=== PATIENT | female | born 1950 | race Caucasian/White ===

== ENCOUNTER 2020-02-21 08:20 | Outpatient (CLI) | payer MEDICARE, SELFPAY ==
--- NOTE | 2020-02-21 08:40 | CT_ITS ---
WS: [id number] CT CHEST WITHOUT INTRAVENOUS CONTRAST HISTORY: PULMONARY NODULE TECHNIQUE: Contiguous 5 mm axial imaging performed on the thorax. Coronal and sagittal reformats are submitted. All CT scans at [facility] use at least one of these dose optimization techniq ues: automated exposure control; mA and/or kV adjustment per patient size (includes targeted exams wh ere dose is matched to clinical indication); or iterative reconstruction. CONTRAST: None DLP: 593.39 mGycm COMPARISON: 04/21/2018, 03/02/2016 Lungs and central airway: Severe chronic emphysema. Lungs are hyperexpanded. There are fibrotic donaldson es throughout both lungs. Stable noncalcified 3 mm nodule periphery of the RIGHT lower lobe. No new n odule or pneumonia. Mild progression of the groundglass attenuation and fibrotic changes. Pleura: Normal. No pleural effusion. Heart and pericardium: Normal size heart. No pericardial effusion. Mediastinum and junior: There are small stable lymph nodes in the mediastinal and hilar regions. No pro gression since the prior exam. Vessels: Mildly dilated and enlarged pulmonary trunk up to 2.9 cm. Mild atherosclerosis aorta with no aneurysm. No coronary artery calcifications. Chest wall and lower neck: No soft tissue masses. Upper abdomen: Unenhanced imaging is negative for any acute process. Visualized liver, gallbladder an d adrenal glands are negative. Small hiatal hernia. Osseous structures: Increase in thoracic kyphosis. Mild S-shaped curvature thoracolumbar spine. No fr actures. CT/CT chest wo con [id number] IMPRESSION: 1. Severe chronic emphysema and pulmonary fibrosis. Minimal progression since 04/21/2018. 2. Long-term stability RIGHT lower lobe 3 mm nodule. 3. Mild pulmonary hypertension. 4. Mild atherosclerosis aorta. 5. Small hiatal hernia.
== END 2020-02-21 08:21 | disposition home or self-care (01) ==
LOC: RADWPI 08:27
PROVIDERS: Family Provider Family Medicine; PCP Family Medicine; Visit Provider Family Medicine
DX: R91.1 Solitary pulmonary nodule (principal); J43.8 Other emphysema; J84.10 Pulmonary fibrosis, unspecified; I27.20 Pulmonary hypertension, unspecified; I70.0 Atherosclerosis of aorta; K44.9 Diaphragmatic hernia without obstruction or gangrene
CPT/HCPCS: 71250

== ENCOUNTER 2020-03-21 11:01 | Outpatient (CLI) | payer MEDICARE, SELFPAY ==
--- NOTE | 2020-03-21 11:09 | MM_ITS ---
WS: [id number] BILATERAL SCREENING DIGITAL MAMMOGRAM WITH CAD HISTORY: SCREENING COMPARISON: 11/08/2018, 10/12/2017 and 09/02/2016 Bilateral CC and MLO views submitted. Computer aided detection analyzed. Breast composition: There are scattered areas of fibroglandular density. No suspicious masses, microc alcifications or architectural distortion. MM/[place] [id number] IMPRESSION: BI-RADS: 1-Negative FOLLOW UP: 1 Year Follow-up
== END 2020-03-21 11:02 | disposition home or self-care (01) ==
LOC: RADSHAW 11:07
PROVIDERS: PCP Family Medicine; Visit Provider Family Medicine
DX: Z12.31 Encounter for screening mammogram for malignant neoplasm of breast (principal)
CPT/HCPCS: 77067

== ENCOUNTER → 2020-11-27 13:16 | Outpatient (BNVA) | payer MEDICARE, SELFPAY | PROVIDERS: PCP Family Medicine; Visit Provider Family Medicine | DX: R30.0 Dysuria (principal) | CPT/HCPCS: 81000; 87077; 87086; 87184 ==

== ENCOUNTER 2021-03-11 09:57 | Outpatient (CLI) | payer MEDICARE, SELFPAY ==
--- NOTE | 2021-03-11 10:39 | CT_ITS ---
WS: [id number] CT CHEST TECHNIQUE: Noncontrast CT of the chest with coronal and sagittal reformatted images. CLINICAL INFORMATION: PULMONARY NODULE COMPARISON: CT chest February 21, 2020 and DLP: 597.[address] scans at [facility] use at least one of these dose optimization techniques: automat ed exposure control; mA and/or kV adjustment per patient size (includes targeted exams where dose is matched to clinical indication); or iterative reconstruction. FINDINGS: Small 3 mm nodule right lower lobe is unchanged since 2018. Advanced chronic emphysematous changes. S cattered areas of fibrosis in the lung apices. Small esophageal hiatal hernia. Aortic calcification. No mediastinal or hilar lymphadenopathy. Prominent pulmonary trunk measuring up to 3.0 cm can be seen with pulmonary arterial hypertension unchanged. Thoracic kyphosis with mild S-shaped thoracolumbar scoliosis. Adrenal glands are normal. CT/CT chest wo con [id number] IMPRESSION: 1. Long-term stability of the 3 millimeter right lower lobe pulmonary nodule. 2. Advanced chronic emphysematous changes are stable. Fibrosis in the lung api mallory. 3. No mediastinal or hilar lymphadenopathy. A few prominent subcarinal lymph n odes unchanged from previous. 4. Small esophageal hiatal hernia.
== END 2021-03-11 09:58 | disposition home or self-care (01) ==
LOC: RADWPI 10:03
PROVIDERS: PCP Family Medicine; Visit Provider Family Medicine
DX: R91.1 Solitary pulmonary nodule (principal); J84.10 Pulmonary fibrosis, unspecified; K44.9 Diaphragmatic hernia without obstruction or gangrene
CPT/HCPCS: 71250

== ENCOUNTER → 2021-05-08 09:51 | Outpatient (BNVA) | payer MEDICARE, SELFPAY | PROVIDERS: PCP Family Medicine; Visit Provider Family Medicine | DX: Z20.822 Contact with and (suspected) exposure to COVID-19 (principal) | CPT/HCPCS: 87635 ==

== ENCOUNTER 2021-05-14 09:10 | Outpatient (CLI) | payer MEDICARE, SELFPAY ==
--- NOTE | 2021-05-14 09:12 | USCV_ITS ---
Gwendolyn Carrington Age: 70 Gender: F : 1950 Exam Date: 05/14/2021 09:37 Ordering Phys: Julio Carson MD Technologist: Chloe Garcia Exam Location: [facility] [place] Indication: HTN BP: 105 / 61 HR: 69 Rhythm: Sinus Technical Quality: Adequate MEASUREMENTS (Male / Female) Normal Values 2D ECHO LV Diastolic Diameter PLAX 3.8 cm 4.2 - 5.9 / 3.9 - 5.3 cm LV Systolic Diameter PLAX 2.4 cm IVS Diastolic Thickness 1.3 cm 0.6 - 1.0 / 0.6 - 0.9 cm IVS Systolic Thickness 1.3 cm LVPW Diastolic Thickness 0.9 cm 0.6 - 1.0 / 0.6 - 0.9 cm LVPW Systolic Thickness 1.5 cm RV Chamber Size 3.2 cm LVOT Diameter 2.0 cm LV Ejection Fraction 2D Teich 69.0 % LV Ejection Fraction MOD 2C 58.1 % LV Ejection Fraction 2C AL 57.6 % LA Diameter 2.9 cm LA Width 2.2 cm LA Height 3.4 cm RA Width 2.7 cm RA Height 3.5 cm Aorta at Sinotubular Diameter 2.1 cm M-MODE Aortic Annulus Diameter 2.4 cm LA Ao Ratio MM 1.3 MV E Point Septal Separation 0.5 cm DOPPLER AV Peak Velocity 120.0 cm/s LVOT Peak Velocity 114.0 cm/s AV Area Cont Eq vti 2.7 cm squared AV Area Cont Eq pk 2.9 cm squared MV Area PHT 5.0 cm squared Mitral E to A Ratio 0.9 MV E' Velocity 50.5 cm/s Mitral E to MV E' Ratio 6.4 Mitral E to LV E' Lateral Ratio 5.7 Mitral E to LV E' Septal Ratio 7.3 TR Peak Velocity 250.0 cm/s TR Peak Gradient 25.0 mmHg TV Peak E Velocity 64.0 cm/s Right Atrial Pressure 3.0 mmHg Pulmonary Artery Systolic Pressu 28.0 mmHg PV Peak Velocity 136.0 cm/s RV Acceleration Time 0.1 s RV Ejection Time 0.3 s RV AcT/ET 0.3 FINDINGS Left Ventricle Normal left ventricular size and systolic function, EF 65 %. No regional wall motion abnormalities. Right Ventricle The right ventricle is normal in size and function. Right Atrium The right atrium is normal in size. Left Atrium The left atrium is normal in size. Mitral Valve Trace mitral valve regurgitation. Thickened mitral valve. Aortic Valve Structurally normal trileaflet aortic valve. Tricuspid Valve No gross abnormalities noted. Trace to mild tricuspid valve regurgitation. Pulmonic Valve Trace pulmonary valve regurgitation. Pericardium Normal pericardium without effusion. Aorta Normal ascending aorta dimension. CONCLUSIONS Normal left ventricular size and systolic function, EF 65 %. No regional wall motion abnormalities. Minimally thickened aortic and mitral valves. Trace to mild tricuspid valve regurgitation. Trace mitral valve regurgitation. Trace pulmonary valve regurgitation. There is no pericardial effusion. There are no intracardiac masses. Compared to the study from 10/08/2016, there may not be a significant change Dr Fidencio Mosher MD FACC (Electronically Signed) Final Date: 14 May 2021 19:37 S
--- NOTE | 2021-05-14 13:31 | PFTS_ITS ---
Date of Study:05/14/21 Date of Dictation: MECHANICS: Forced vital capacity (FVC) is normal. Forced expiratory volume in one second (FEV1) is normal. FEV1/FVC is normal. FLOW VOLUME LOOP: Mild scooping. LUNG VOLUMES: Not measured DIFFUSING CAPACITY FOR CARBON MONOXIDE: Not measured. INTERPRETATION: The postbronchodilator spirometry is normal. There is no significant postbronchodilator response. MTDD
== END 2021-05-14 09:11 | disposition home or self-care (01) ==
LOC: US 09:11
PROVIDERS: PCP Family Medicine; Visit Provider Family Medicine
DX: I10 Essential (primary) hypertension (principal); J43.9 Emphysema, unspecified
CPT/HCPCS: 93306; 94060; J7611

== ENCOUNTER 2021-05-28 09:40 | Outpatient (CLI) | payer MEDICARE, SELFPAY ==
--- NOTE | 2021-05-28 09:45 | FL_ITS ---
WS: [id number] DOUBLE CONTRAST UPPER GI EXAMINATION HISTORY: K21.9 - Gastro-esophageal reflux disease without esophagitis COMPARISON: 03/03/2016 FLUOROSCOPY TIME: 3.6 minutes. Slow transit of barium through the esophagus secondary to moderate stricture and dysmotility at the G E junction. There is a moderate narrowing of the distal esophagus. There is also a component of esoph ageal spasm. Proximal to the stricture is a moderate esophageal dysmotility. No filling defects. Duodenal bulb was distensible and pliable. No ulcerations noted within the stomach. Delayed emptying of the esophagus. No hiatal hernia was demonstrated on this exam. FL/FL upper GI w air* [id number] IMPRESSION: 1. Significant delay in emptying of the esophagus due to moderate distal esoph ageal stricture and dysmotility. There is also a component of esophageal spasm. 2. Normal stomach and duodenum.
== END 2021-05-28 09:41 | disposition home or self-care (01) ==
PROVIDERS: PCP Family Medicine; Visit Provider Surgery
DX: K21.9 Gastro-esophageal reflux disease without esophagitis (principal)
CPT/HCPCS: 74246

== ENCOUNTER → 2021-06-19 10:03 | Outpatient (BNVA) | payer MEDICARE, SELFPAY | PROVIDERS: PCP Family Medicine; Visit Provider Surgery | DX: R13.10 Dysphagia, unspecified (principal); Z20.822 Contact with and (suspected) exposure to COVID-19 | CPT/HCPCS: 87635 ==

== ENCOUNTER 2021-06-24 06:02 | Day surgery (SDC) | payer MEDICARE, SELFPAY ==
[2021-06-20 14:37] VITALS: BMI 23.9
--- NOTE | 2021-06-24 06:05 | W.PM.OPSFHP ---
Same Day Surgery H&P Indication for Procedure/HPI DATE OF PROCEDURE: June 24, 2021 CHIEF COMPLAINT/INDICATIONFOR SURGICAL PROCEDURE: Difficulty in swallowing PREOP DIAGNOSIS: Dysphagia PLANNED PROCEDRUE: Operation Date: 06/24/21 07:00 Proposed Procedures p EGD Dilation(Not Applicable) - Ashutosh Jones MD 05/19/2021 This is a pleasant 70 years old female patient with history of Raynaud's disease and crest syndrome. Has been having worsening acid reflux and trouble swallowing. Patient reports that she had her esophagus stretched before before 7 to 8 years ago. Undergone an upper GI study in the form of barium swallow back in 2009 that showedIMPRESSION: 1. Small reducible sliding hiatal hernia with gastroesophageal reflux. 2. Nonpropulsive waves in the esophagus and stasis of contrast in the esophagus. Repeat barium swallow 2013 showed 1. 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 2. Marked esophageal dysmotility as described above, associated with ineffective mid and lower esophageal tertiary contractions and movement of barium through the lower esophageal sphincter primarily by gravity. Differential diagnosis includes hyperactive achalasia, severe presbyesophagus, esophagitis, or secondary to gastroesophageal reflux, otherwise not observed on this exam. In 2015 patient was evaluated by me and was sent for an upper GI study and small bowel follow-through that showed 1. Marked esophageal dysmotility and can be seen with presbyesophagus, esophagitis, electrolyte disturbances, medications, collagen vascular diseases and hyperactive achalasia. 2. Remainder of the upper gastrointestinal series and small bowel follow-through normal. Since 2015 I do not recall seeing the patient. She is referred to me today for further evaluation potential intervention. Interim history 06/24/2021 Patient comes today for diagnostic EGD with possible biopsy and possible balloon dilation 1. Significant delay in emptying of the esophagus due to moderate distal esophageal stricture and dysmotility. There is also a component of esophageal spasm. 2. Normal stomach and duodenum. ROS All systems have been reviewed negative except as per the above or per problem list Medications/Allergies* Home Medications Medication Instructions Recorded Confirmed Type budesonide-formoterol HFA 80 2 puff INHALATION BID 11/27/20 06/20/21 History mcg-4.5 mcg/actuation aerosol inhaler buspirone 5 mg tablet 5 mg PO BID 11/27/20 06/20/21 History gabapentin 300 mg capsule 300 mg PO DAILY 11/27/20 06/20/21 History hydrocodone 7.5 mg-acetaminophen 1 tab PO Q8H PRN 11/27/20 06/20/21 History 325 mg tablet nitroglycerin 2 % transdermal 1 inch TRANSDERMAL BID 11/27/20 06/20/21 History ointment potassium chloride 10 mEq 10 meq PO DAILY 11/27/20 06/20/21 History capsule,extended release rosuvastatin 40 mg tablet 40 mg PO DAILY 11/27/20 06/20/21 History tizanidine 4 mg capsule 4 mg PO BID PRN 11/27/20 06/20/21 History verapamil 80 mg tablet 80 mg PO TID 11/27/20 06/20/21 History cholecalciferol (vitamin D3) 50 50 mcg PO DAILY 05/19/21 06/20/21 History mcg (2,000 unit) capsule hydroxychloroquine 200 mg tablet 200 mg PO DAILY 05/19/21 06/20/21 History mirtazapine 15 mg tablet 15 mg PO DAILY 05/19/21 06/20/21 History omeprazole 20 mg capsule,delayed 20 mg PO DAILY 05/19/21 06/20/21 History release Allergies/Adverse Reactions Allergy/AdvReac Type Severity Reaction Status Date / Time codeine Allergy na Verified 06/24/21 06:07 Iodinated Contrast Media Allergy ALGY-Anaphy Verified 06/24/21 06:07 laxis midazolam [From Versed] Allergy na Verified 06/24/21 06:07 pregabalin [From Lyrica] Allergy na Verified 06/24/21 06:07 Pertinent History/Comorbid Conditions* Family History (Updated 05/19/21 @ 10:17 by Spring Haile) Dementia Mother Denies family history of Diabetes CAD (coronary artery disease) Psychiatric illness Lung disease Cancer Stroke Social History Smoking and tobacco status: current every day smoker Alcohol intake: never Lives independently: No Pertinent Exam Findings alert, oriented x 3, clear to auscultation bilaterally, regular rate & rhythm and procedure specific exam findings (Abdominal examination nontender nondistended soft) Recommendations Surgery/Procedure today (EGD with possible biopsy and possible dilation) Other Plans: Plan of care; After thorough history and physical examination and reviewing the chart and images with my personal interpretation of the upper GI study, plan to perform a diagnostic esophagogastroduodenoscopy with possible biopsy with possible balloon dilation in the GI lab. I discussed with the patient in detail the risk,benefits,alternatives and indications.The risk of aspiration, bleeding, soft tissue injury, perforation of the stomach/esophagus and other potential concomitant complications were explained to the patient in details,aslo the potential need for Thoracic and or Abdominal surgery to repair any complications.The patient understood this well and did agree to proceed. Rationale was carefully and clearly discussed with the patient.Appropriate informed consent have been reviewed and signed All questions have been answered and all concerns have been addressed to patient's satisfaction. Coding Level of Care Code Acute Tubular Splitting Machine Tender for Amy Lacey
[2021-06-24] MEDS: sodium chloride 0.9% 1,000 ML 30 ML IV (06:41)
--- NOTE | 2021-06-24 06:53 | ANES.PREANE2 ---
Pre-Anesthetic Assessment Pre-Anesthetic Assessment: Height/Weight: Height 1.6 m Weight 61.235 kg Preop Diagnosis: Difficulty in swallowing Proposed Procedure: Operation Date: 06/24/21 07:00 Proposed Procedures p EGD Dilation(Not Applicable) - Ashutosh Jones MD Was Beta Long taken within 24 hours: N/A Was Clonidine taken within 24 hours: N/A Last intake: Intake Last Liquid Date 06/23/21 Last Liquid Time 19:00 Last Solid Date 06/23/21 Last Solid Time 21:00 Social: Social History: Tobacco (1ppd for 30 yrs) Exam: Pre-Anes Outpt Exam: alert, oriented x 3, clear to auscultation bilaterally and regular rate & rhythm Airway: Submandibular: WNL Cervical ROM: WNL MP: 2 Dentition: False History/ROS: No significant history except as noted Pulmonary: Pulmonary: COPD and SOB CV/HEM: CV/HEM: PVD (raynauds) : : None reported Hepatic: Hepatic: None reported GI: GI: GERD Metabolic: Metabolic: None reported Musc/skel: Musc/skel: Lower Back Pain Comments: scoliosis Neuropsych: Neuropsych: None reported Anesthetic Plan: Anesthesia: Anesthesia Evaluation and MAC Risk of > 500 ml blood loss (7ml/kg in children): No Meds/Allergies Current Medications: Current Medications Generic Name Dose Route Start Last Admin Trade Name Freq PRN Reason Stop Dose Admin Sodium Chloride 1,000 mls @ 30 ml s/hr 06/24/21 06:15 06/24/21 06:41 Sodium Chloride 0.9% IV 06/25/21 06:14 30 mls/hr .Q24H JAN Administration PFSH Anesthesia PFSH: Family History Mother Dementia Denies family history of Diabetes CAD (coronary artery disease) Psychiatric illness Lung disease Cancer Stroke Social History Smoking and tobacco status: current every day smoker Alcohol intake: never Lives independently: No Data Anesthesia Cardiac Studies: Echocardiogram 05/14/21
[2021-06-24 07:19] VITALS: BP 116/46; PULSE 88; RESP 18; TEMP 36.6; O2SAT 90
[2021-06-24 08:00] VITALS: BP 110/75; PULSE 74; RESP 18; O2SAT 94
[2021-06-25 06:03] LABS: H. Pylori / CLO Test Negative
== END 2021-06-24 08:08 | disposition home or self-care (01) ==
PROVIDERS: PCP Family Medicine; Visit Provider Surgery
PROC: 0DJ08ZZ Inspection of Upper Intestinal Tract, Via Natural or Artificial Opening Endoscopic (ICD-10-PCS; CPT 43235; principal; 2021-06-24 07:00)
DX: R13.10 Dysphagia, unspecified (principal); K21.00 Gastro-esophageal reflux disease with esophagitis, without bleeding; K44.9 Diaphragmatic hernia without obstruction or gangrene; K29.70 Gastritis, unspecified, without bleeding; F17.210 Nicotine dependence, cigarettes, uncomplicated; J44.9 Chronic obstructive pulmonary disease, unspecified
CPT/HCPCS: 43239; 87077; 96360; 96361; J2704; J7030

== ENCOUNTER → 2021-07-18 09:25 | Outpatient (BNVA) | payer MEDICARE, SELFPAY | PROVIDERS: PCP Family Medicine; Visit Provider Nurse Practitioner Family | DX: Z20.822 Contact with and (suspected) exposure to COVID-19 (principal) | CPT/HCPCS: 87426; 87635 ==

== ENCOUNTER 2021-08-12 15:53 | Outpatient (CLI) | payer MEDICARE, SELFPAY ==
--- NOTE | 2021-08-12 15:56 | XR_ITS ---
WS: [id number] SCREENING DEXA SCAN [employer] CLINICAL INFORMATION: POST MENOPAUSAL OSTEOPOROSIS COMPARISON: FINDINGS: The L1-L4 bone mineral density measures 0.861 g/cm2. This corresponds to a T score score of -2.7 and Z score of -0.9. Left femoral neck bone mineral density measures 0.758 g/cm2. This corresponds to a T score of -2.0 an d Z score of -0.5. Right femoral neck bone mineral density measures 0.756 g/cm2. This corresponds to a T score -2.0of an d Z score of -0.5. Mean femoral neck bone mineral density measures 0.757 g/cm2. This corresponds to a T score of -2.0 an d Z score of -0.5. XR/XR DEXA axial skeleton* [id number] IMPRESSION: Osteoporosis lumbar spine. Osteopenia in the femoral necks. Patient's FRAX calculated 10 year probability for major osteoporotic fracture i s 39.4 % and osteoporotic hip fracture is 16.3%.
== END 2021-08-12 15:54 | disposition home or self-care (01) ==
PROVIDERS: PCP Family Medicine; Visit Provider Family Medicine
DX: Z78.0 Asymptomatic menopausal state (principal); M81.0 Age-related osteoporosis without current pathological fracture; M85.88 Other specified disorders of bone density and structure, other site
CPT/HCPCS: 77080

== ENCOUNTER → 2021-09-20 14:32 | Outpatient (BNVA) | payer MEDICARE, SELFPAY | PROVIDERS: PCP Family Medicine; Visit Provider Nurse Practitioner | DX: R30.0 Dysuria (principal) | CPT/HCPCS: 81000 ==

== ENCOUNTER → 2021-10-31 09:23 | Day surgery (SDC) | payer MEDICARE, SELFPAY ==
[2021-10-31 09:49] VITALS: BP 115/50; PULSE 72; RESP 18; TEMP 36.3; O2SAT 96
[2021-10-31 10:07] LABS: Blood Urea Nitrogen 11 mg/dL (8-23); Calcium 8.5 mg/dL (8.5-10.5); Glomerular Filtration Rate 99.4 mL/min (90-130)
--- NOTE | 2021-10-31 10:28 | PC.NURSE ---
Pt to GI lab for Reclast infusion. Current Creatinine clearance noted at 87 mL/min and Calcium level 8.5. Infusion started. Pt tolerating well.
== END ==
PROVIDERS: PCP Family Medicine; Visit Provider Family Medicine
DX: M81.0 Age-related osteoporosis without current pathological fracture (principal)
CPT/HCPCS: 36415; 82310; 82565; 84520; 96365; J3489

== ENCOUNTER 2022-05-19 12:49 | Emergency (ER) | payer MEDICARE, SELFPAY ==
--- NOTE | 2022-05-19 13:16 | XRR_ITS ---
PROCEDURE INFORMATION: Exam: XR Lumbosacral Spine Exam date and time: 05/19/2022 1:30 PM Age: 71 years old Clinical indication: Low back pain TECHNIQUE: Imaging protocol: Radiologic exam of the lumbosacral spine. Views: 2 or 3 views. COMPARISON: CR Upper GI w Air and SBS* [id number] 03/03/2016 9:18 AM FINDINGS: Bones/joints: Generalized osteopenia is seen. No acute fracture. Normal alignment. Narrowing of the intervertebral disc space at multiple levels consistent with osteoarthritis. Soft tissues: Calcified ectatic abdominal aorta. Negative for aneurysm XR/XR lumbar spine 2-3V* [id number] IMPRESSION: 1. Osteopenia and osteoarthritis 2. No acute findings.
[2022-05-19 13:18] VITALS: BP 139/74; PULSE 76; RESP 16; TEMP 36.4; O2SAT 96; BMI 23.9
--- NOTE | 2022-05-19 13:40 | W.ED.BACK ---
HPI - Back Pain/Injury General: Chief Complaint: Back Pain/Injury Stated Complaint: Lower left back pain Time Seen by Provider: 05/19/22 13:32 Source: patient Mode of arrival: ambulatory Limitations: no limitations History of Present Illness: Patient is a 71-year-old female presents to ED today with a complaint of left-sided back pain that has been present over the past 4 to 5 days. She states that pain started after bending over to brush her dog. She is reporting pain about her left flank and down into her left lower back. She feels like the area is swollen and spasming. Pain is exacerbated by movement. She does not have any radiation into her abdomen. She does not complain of hematuria. No history of kidney stones. Pain does not seem to radiate into her lower extremities. She does states she has a longstanding history of back pain that she treats with hydrocodone and zanaflex (prescribed by Dr. Carson). She does not complain of dysuria, frequency, urgency. MD elicited complaint: back pain and back injury Pertinent past history: prior back pain Onset (ago): day(s) Timing: constant Severity: severe Pain scale (0-10): 10 Quality: sharp and spasming Location: left flank and left lower back Radiation: none Exacerbating factors: movement Relieving factors: none Associated symptoms: Reports no associated symptoms; Deny abdominal pain, chills, dysuria, fatigue, fever(s), hematuria, syncope or urinary urgency Work related injury: No Review of Systems Const: Denies: fever(s), chills, body aches, fatigue or malaise Card: Denies: chest pain, palpitations, edema, lightheadedness, syncope or pre-syncope Resp: Denies: dyspnea GI: Denies: abdominal pain : Reports: flank pain and urinary hesitancy; Denies: difficulty voiding, dysuria, urinary frequency, urinary urgency, hematuria or pelvic pain Musc: Reports: back pain; Denies: neck pain, extremity pain, extremity swelling, joint pain, joint swelling, joint redness or joint warmth Skin/Breast: Denies: rash Neuro: Denies: headache(s), numbness in extremities, weakness in extremities or sensory changes [facility] ED PFSH: Medical History Dysphagia Gastritis Hiatal hernia Family History Mother Dementia Denies family history of Diabetes CAD (coronary artery disease) Psychiatric illness Lung disease Cancer Stroke Social History Smoking and tobacco status: current every day smoker cigarettes Alcohol intake: never Lives independently: No Physical Exam Const: COMMON NORMALS: patient oriented x3, no limitations, alert and well nourished GENERAL APPEARANCE: cooperative and in distress (crying due to discomfort ) ORIENTATION/CONSCIOUSNESS: Yes awake, Yes oriented to person, Yes oriented to place and Yes oriented to time HENMT: COMMON NORMALS: normocephalic and atraumatic HEAD & SCALP: normal to inspection, normocephalic and atraumatic Neck/C-Spine: COMMON NORMALS: full ROM, no lymphadenopathy, no meningeal signs and no JVD GENERAL: Yes normal visual inspection Chest: COMMONS NORMALS: normal inspection of the chest and normal palpation of entire chest wall Resp: COMMON NORMALS: normal respiratory effort and clear to auscultation bilaterally AUSCULTATION: clear to auscultation bilaterally Cardio: COMMON NORMALS: no JVD, regular rate and regular rhythm RATE: regular rate RHYTHM: regular rhythm GI: COMMON NORMALS: Normal to inspection, nondistended, normoactive bowel sounds present, Soft to palpation, non-tender, No hepatosplenomegaly present and no masses PALPATION: Yes Soft to palpation and Yes No hepatosplenomegaly present : BLADDER/KIDNEY EXAM: Yes CVA tenderness on the left Back/Pelvis: GENERAL BACK: Yes CVA tenderness THORACIC SPINE/UPPER BACK: Yes normal to inspection, No thoracic spinal tenderness, Yes paraspinal muscle tenderness Thoracic paraspinal muscle tenderness: left and Yes paraspinal muscle spasm Thoracic paraspinal muscle spasm: left LUMBAR SPINE/LOWER BACK: Yes normal to inspection, No lumbar spinal tenderness, Yes paraspinal muscle tenderness Lumbar paraspinal muscle tenderness: left and No paraspinal muscle spasm PELVIS: Yes buttocks normal SACROILIAC JOINTS: Yes SI joints normal SACRUM: no tenderness COCCYX: no tenderness Extremity: COMMON NORMALS: normal to inspection, full ROM, capillary refill normal, no joint enlargement, no clubbing, cyanosis or edema, no calf tenderness and no pedal edema GENERAL: Yes normal exam except as noted Neuro: MOHINDER COMA SCALE: document GCS findings Mohinder coma scale eye opening: Spontaneous Mohnider coma scale verbal response: Orientated Mohinder coma scale motor response: Obey commands [place] coma scale total score: 15 COMMON NORMALS: patient oriented x3, moves all extremities, no focal motor deficits and no sensory deficits noted SENSORIUM/ORIENTATION: Yes alert, Yes oriented to person, Yes oriented to place and Yes oriented to time MENINGEAL SIGNS: Yes no meningeal signs Skin: COMMON NORMALS: no rashes or lesions noted GENERAL SKIN EXAM: no rashes or lesions noted Course Vital Signs: Vital signs: Vital Signs Temperature 97.6 F 05/19/22 13:18 Pulse Rate 76 05/19/22 13:18 Respiratory Rate 20 H 05/19/22 14:13 Blood Pressure 139/74 05/19/22 13:18 Pulse Oximetry 96 05/19/22 13:18 MDM - Back Pain/Injury Medical Decision Making Patient has tenderness along the left flank/thoracic and lumbar paraspinal musculature. There is noted muscle spasm. Patient feels better after IM medications here. Blood work is unremarkable. Her UA does not show hematuria. She does have positive nitrites and a small amount of WBCs with bacteria. She is leukocyte esterase negative. She does not have any signs or symptoms consistent with a UTI and/or pyelonephritis. Based on her history and physical exam I favor musculoskeletal strain. At this point I will place her on steroids and anti-inflammatories. She can continue her normal Hydrocodone and Zanaflex. We will await cultures of her urine and if positive we can initiate antibiotic therapy at that time. Labs : 05/19/22 14:30 05/19/22 14:30 Radiology Impressions Lumbar Spine X-Ray 05/19/22 13:16 IMPRESSION: 1. Osteopenia and osteoarthritis 2. No acute findings. Laboratory Results WBC 10.5 10^3/uL (4.0-10.0) H 05/19/22 14:30 RBC 4.13 10^6/uL (4.1-5.3) 05/19/22 14:30 Hgb 13.0 g/dL (11.5-15.3) 05/19/22 14:30 Hct 40.9 % (37.0-47.0) 05/19/22 14:30 MCV 99.0 fl (81-99) 05/19/22 14:30 MCH 31.5 pg (28.0-34.0) 05/19/22 14:30 MCHC 31.8 g/dL (30.0-36.0) 05/19/22 14:30 RDW 15.5 % (12.1-15.1) H 05/19/22 14:30 Plt Count 227 10^3/cmm (130-400) 05/19/22 14:30 MPV 9.3 fL (7.4-10.4) 05/19/22 14:30 Neut % (Auto) 70.1 % 05/19/22 14:30 Lymph % (Auto) 21.5 % 05/19/22 14:30 [place] % (Auto) 6.9 % 05/19/22 14:30 Eos % (Auto) 0.9 % 05/19/22 14:30 Baso % (Auto) 0.3 % 05/19/22 14:30 Neut # (Auto) 7.36 10^3/uL (1.8-7.7) 05/19/22 14:30 Lymph # (Auto) 2.3 10^3/uL (0.8-4.8) 05/19/22 14:30 [place] # (Auto) 0.7 10^3/uL (0.2-0.9) 05/19/22 14:30 Eos # (Auto) 0.1 10^3/uL (0.0-0.8) 05/19/22 14:30 Baso # (Auto) 0.0 10^3/uL (0.0-0.1) 05/19/22 14:30 Nucleated RBC % (auto) 0 % 05/19/22 14:30 Nucleated RBCs # 0.0 /100WBC 05/19/22 14:30 Sodium 140 mmol/L (136-145) 05/19/22 14:30 Potassium 4.4 mmol/L (3.5-5.1) 05/19/22 14:30 Chloride 102 mmol/L (98-107) 05/19/22 14:30 Carbon Dioxide 26 mmol/L (22-29) 05/19/22 14:30 Anion Gap 16.4 (5-19) 05/19/22 14:30 BUN 15 mg/dL (8-23) 05/19/22 14:30 Creatinine 0.7 mg/dL (0.5-0.9) 05/19/22 14:30 GFR Calculation 83.0 mL/min (90-130) L 05/19/22 14:30 Glucose 90 mg/dL (65-115) 05/19/22 14:30 Calculated Osmolality 290 mOsm/kg (285-295) 05/19/22 14:30 Calcium 9.5 mg/dL (8.5-10.5) 05/19/22 14:30 Total Bilirubin 0.3 mg/dL (0.15-1.2) 05/19/22 14:30 AST 18 U/L (0-32) 05/19/22 14:30 ALT 11 U/L (0-33) 05/19/22 14:30 Alkaline Phosphatase 84 IU/L (35-105) 05/19/22 14:30 Total Protein 7.2 g/dL (6.6-8.7) 05/19/22 14:30 Albumin 3.5 g/dL (3.5-5.2) 05/19/22 14:30 Globulin 3.7 g/dL (1.3-4.6) 05/19/22 14:30 Urine Color Straw (Yellow) 05/19/22 15:05 Urine Appearance Clear (CLEAR) 05/19/22 15:05 Urine pH 5 (5-7) 05/19/22 15:05 Ur Specific [place] 1.005 (1.005-1.030) 05/19/22 15:05 Urine Protein Neg (Negative) 05/19/22 15:05 Urine Glucose (UA) Norm (Normal) 05/19/22 15:05 Urine Ketones Negative (Negative) 05/19/22 15:05 Urine Blood Neg (Negative) 05/19/22 15:05 Urine Nitrate Positive (Negative) H 05/19/22 15:05 Urine Bilirubin Neg (Negative) 05/19/22 15:05 Urine Urobilinogen Norm mg/dL (Negative) 05/19/22 15:05 Ur Leukocyte Esterase Negative (Negative) 05/19/22 15:05 Urine RBC 0-4 /hpf (0-2) H 05/19/22 15:05 Urine WBC 5-10 /hpf (0-5) H 05/19/22 15:05 Ur Squamous Epith Cells 0-4 /hpf (0-5) H 05/19/22 15:05 Amorphous Sediment Not Reportable 05/19/22 15:05 Urine Bacteria 4+ /hpf (NONE) H 05/19/22 15:05 Discharge Plan Discharge Patient Disposition: Home Clinical Impression: Muscle spasm of back Left-sided thoracic back pain Qualifiers: Chronicity: acute Qualified Code(s): M54.6 - Pain in thoracic spine Condition: Stable Prescriptions: New Celebrex 100 mg capsule 100 mg PO BID Qty: 14 0RF Medrol (Ty) 4 mg tablets,dose pack See Rx Instructions .ROUTE .COMPLEX Qty: 21 0RF Rx Instructions: orally per package directions No Action Nitro-Bid 2 % ointment 1 inch transdermal BID Rx Instructions: administer 2 doses/day (approx. 6 hrs apart); remove for 10-12 hrs per 24 hours budesonide-formoterol [Symbicort] 80-4.5 mcg/actuation HFA aerosol inhaler 2 puff inhalation BID potassium chloride 10 mEq capsule, extended release 10 meq PO DAILY gabapentin 300 mg capsule 300 mg PO DAILY hydrocodone-acetaminophen 7.5-325 mg tablet 1 tab PO Q8H PRN (Reason: Pain) tizanidine 4 mg capsule 4 mg PO BID PRN (Reason: unknown) rosuvastatin 40 mg tablet 40 mg PO DAILY buspirone 5 mg tablet 5 mg PO BID verapamil 80 mg tablet 80 mg PO TID hydroxychloroquine 200 mg tablet 200 mg PO DAILY mirtazapine 15 mg tablet 15 mg PO DAILY cholecalciferol (vitamin D3) 50 mcg (2,000 unit) capsule 50 mcg PO DAILY omeprazole 20 mg capsule,delayed release(DR/EC) 20 mg PO BIDWMEAL Qty: 0 2RF Discharge Orders: Discharge ED (Routine); Ordered 05/19/22 Ordered By: Chiara Silverio Referrals: Julio Carson MD [Referring] - Activity Restrictions/Additional Instructions: Please follow-up with your primary care provider soon as possible for re-evaluation. You may return to the emergency department for worsening or uncontrollable back pain, symptoms consistent with a kidney infection such as painful urination, urinary urgency/frequency, fever/chills, vomiting, or generally feeling unwell. Coding Level of Care Code ED Supervisor Tree Trimming for Chg Fwd Exam Comprehensive
[2022-05-19 14:13] VITALS: RESP 20
[2022-05-19] MEDS: morphine 4 mg/mL SDV 1 mL IM (14:13)
[2022-05-19] MEDS: ketorolac 30 mg/mL INJ 15 MG IM (14:14)
[2022-05-19] MEDS: orphenadrine 30 mg/mL Inj 2 mL 60 MG IM (14:14)
[2022-05-19 14:36] LABS: Basophils % 0.3 %; Eosinophils # 0.1 10^3/uL (0.0-0.8); Eosinophils % 0.9 %; Hematocrit 40.9 % (37.0-47.0); Lymphocytes # 2.3 10^3/uL (0.8-4.8); Lymphocytes % 21.5 %; Mean Corpuscular HGB Conc 31.8 g/dL (30.0-36.0); Mean Corpuscular Hemoglobin 31.5 pg (28.0-34.0); Mean Platelet Volume 9.3 fL (7.4-10.4); Monocytes # 0.7 10^3/uL (0.2-0.9); Monocytes % 6.9 %; Neutrophils # 7.36 10^3/uL (1.8-7.7); Neutrophils % 70.1 %; Nucleated Red Blood Cells % 0 %; Platelet Count 227 10^3/cmm (130-400); Red Blood Count 4.13 10^6/uL (4.1-5.3); Red Cell Distribution Width 15.5 % (12.1-15.1); White Blood Count 10.5 10^3/uL (4.0-10.0)
[2022-05-19 15:06] LABS: Alanine Aminotransferase 11 U/L (0-33); Albumin Level 3.5 g/dL (3.5-5.2); Alkaline Phosphatase 84 IU/L (35-105); Anion Gap 16.4 (5-19); Aspartate Amino Transferase 18 U/L (0-32); Blood Urea Nitrogen 15 mg/dL (8-23); Calcium 9.5 mg/dL (8.5-10.5); Carbon Dioxide 26 mmol/L (22-29); Chloride 102 mmol/L (98-107); Globulin 3.7 g/dL (1.3-4.6); Glucose 90 mg/dL (65-115); Osmolality Calculated 290 mOsm/kg (285-295); Potassium 4.4 mmol/L (3.5-5.1); Sodium 140 mmol/L (136-145); Total Bilirubin 0.3 mg/dL (0.15-1.2); Total Protein 7.2 g/dL (6.6-8.7)
[2022-05-19 15:40] LABS: Add Urine Microscopic? YES; Bilirubin Urine Neg (Negative); Blood Urine Neg (Negative); Glucose Urine UA Norm (Normal); Ketones Urine Negative (Negative); Leukocyte Esterase Urine Negative (Negative); Nitrate Urine Positive (Negative); Protein Urine Neg (Negative); RBC Urine 0-4 /hpf (0-2); Specific Gravity, Urine 1.005 (1.005-1.030); Squamous Epithelial Cell Urine 0-4 /hpf (0-5); Urine Appearance Clear (CLEAR); Urine Color Straw (Yellow); Urobilinogen Urine Norm (Negative); pH Urine 5 (5-7)
[2022-05-19 15:41] LABS: Add Urine Culture? Yes; Bacteria Urine 4+ /hpf
[2022-05-19 16:22] VITALS: BP 110/53; PULSE 72; RESP 18; O2SAT 91
[2022-05-19 16:26] VITALS: BP 110/58; PULSE 78; RESP 18
== END 2022-05-19 16:28 | disposition home or self-care (01) ==
PROVIDERS: Emergency Provider Physician Assistant; PCP Family Medicine
DX: M54.6 Pain in thoracic spine (principal); M62.830 Muscle spasm of back; F17.210 Nicotine dependence, cigarettes, uncomplicated
CPT/HCPCS: 72100; 80053; 81001; 85025; 87077; 87086; 87186; 96372; 99284; J1885; J2270; J2360

== ENCOUNTER → 2022-07-22 10:36 | Outpatient (BNVA) | payer MEDICARE, SELFPAY | PROVIDERS: PCP Family Medicine; Visit Provider Internal Medicine | DX: I73.00 Raynaud's syndrome without gangrene (principal); M81.0 Age-related osteoporosis without current pathological fracture; K21.9 Gastro-esophageal reflux disease without esophagitis; M41.9 Scoliosis, unspecified; Z11.59 Encounter for screening for other viral diseases | CPT/HCPCS: 36415; 72040; 72072; 72100; 80053; 82306; 82607; 82728; 82784; 83516; 83540; 84443; 85025; 85651; 86140; 86160; 86162; 86235; 86255; 86376; 86704; 86803; 87340; 99204 ==

== ENCOUNTER 2022-08-27 11:58 | Outpatient (CLI) | payer MEDICARE, SELFPAY ==
--- NOTE | 2022-08-27 12:12 | MR_ITS ---
WS: [id number] MRI LUMBAR SPINE NONCONTRAST TECHNIQUE: Sagittal T1, T2 and STIR imaging. Axial T1 and T2 imaging. CLINICAL INFORMATION: DDD LUMBAR SPINE COMPARISON: None. FINDINGS: Mild lumbar curve. No acute compression. Mild chronic compression inferior endplate L4. No edema. Thi s is new since 2019 but has a chronic appearance. No retropulsion. Grade 1 anterolisthesis L5 on S1 w ith chronic spondylolysis. Tiny central protrusion lower thoracic spine T12-L1. L1-L2: LEFT pericentral protrusion with slight effacement of ventral thecal sac. Slight narrowing of the LEFT subarticular recess. Mild facet arthropathy. Spinal canal and foramen are patent. L2-L3: No significant disc bulging. Mild facet arthropathy. Spinal canal and foramen are patent. L3-L4: Mild annular bulging. Slight narrowing of the LEFT subarticular recess. Mild LEFT foraminal na rrowing. Mild facet arthropathy. L4-L5: Mild disc bulging with osteophytic ridging. Slight narrowing of the LEFT subarticular recess. Small LEFT foraminal protrusion with mild LEFT foraminal narrowing. RIGHT foramen is patent. L5-S1: Grade 1 anterolisthesis L5 on S1. Chronic spondylolysis. Eccentric disc osteophyte complex sli ghtly contacts the exiting LEFT L5 nerve root. RIGHT foramen is patent. Mild facet arthropathy. Central disc protrusion on the buttonhole maker hand imaging thoracic spine at T4-T5. Normal visualized thoracic aort a. Slightly aneurysmal infrarenal abdominal aorta measuring 2.5 x 2.5 cm. MR/MR lumbar spine wo con* [id number] IMPRESSION: 1. Mild lumbar curve. No acute compression. Grade 1 anterolisthesis L5 on S1 w ith chronic spondylolysis slightly progressed compared to 2015.. 2. Mild compression deformity inferior endplate L4 is new since 2015. This has a Chronic appearance. No edema. 3. Shallow LEFT pericentral protrusion L1-L2 encroaches on the traversing LEFT L2 nerve root. This is progressed compared to previous 4. Annular bulging L3-L4 with slight narrowing of the LEFT subarticular recess and mild LEFT L3-L4 foraminal narrowing. 5. Mild LEFT L4-L5 foraminal narrowing is progressed. 6. LEFT eccentric disc osteophyte ridging slightly contacts the exiting LEFT L 5 nerve root.
== END 2022-08-27 11:59 | disposition home or self-care (01) ==
LOC: RAD 11:58
PROVIDERS: PCP Family Medicine; Visit Provider General Practice
DX: M51.36 Other intervertebral disc degeneration, lumbar region (principal); M25.78 Osteophyte, vertebrae; M51.26 Other intervertebral disc displacement, lumbar region
CPT/HCPCS: 72148

== ENCOUNTER → 2022-08-28 11:04 | Outpatient (BNVA) | payer MEDICARE, SELFPAY | PROVIDERS: PCP Family Medicine; Visit Provider Internal Medicine | DX: G58.9 Mononeuropathy, unspecified (principal); Z79.899 Other long term (current) drug therapy; R09.02 Hypoxemia; I73.00 Raynaud's syndrome without gangrene; K21.9 Gastro-esophageal reflux disease without esophagitis; R06.02 Shortness of breath; M41.9 Scoliosis, unspecified; Z11.1 Encounter for screening for respiratory tuberculosis; M81.0 Age-related osteoporosis without current pathological fracture; M34.1 CR(E)ST syndrome | CPT/HCPCS: 36415; 71046; 86480; 99214 ==

== ENCOUNTER 2022-09-29 14:46 | Outpatient (CLI) | payer MEDICARE, SELFPAY ==
--- NOTE | 2022-09-29 14:51 | MM_ITS ---
WS: [id number] BILATERAL 3D TOMOSYNTHESIS DIGITAL SCREENING MAMMOGRAPHY WITH CAD CLINICAL INFORMATION: SCREENING HISTORY: Screening mammogram. No current complaints. COMPARISON: March 21, 2020 TECHNIQUE: Bilateral CC and MLO views. FINDINGS: The breasts are composed of heterogeneous fibroglandular density tissue, which can limit the detectio n of small underlying mass lesions. Irregular lobulated asymmetric density inner quadrant RIGHT breas t measuring 17 mm appears new from previous. Recommend spot compression views and ultrasound in furth er evaluation. LEFT breast is unchanged. Vascular calcification. MM/[place] [id number] IMPRESSION: BI-RADS: 0-Incomplete: Need additional imaging evaluation FOLLOW UP: Need Additional Imaging Recommend RIGHT diagnostic mammography and ultrasound in further evaluation.
== END 2022-09-29 14:47 | disposition home or self-care (01) ==
LOC: RAD 14:47
PROVIDERS: PCP Family Medicine; Visit Provider Family Medicine
DX: Z12.31 Encounter for screening mammogram for malignant neoplasm of breast (principal)
CPT/HCPCS: 77063; 77067

== ENCOUNTER 2022-10-23 10:46 | Outpatient (CLI) | payer MEDICARE, SELFPAY ==
--- NOTE | 2022-10-23 10:59 | MM_ITS ---
WS: [id number] RIGHT 3D TOMOSYNTHESIS DIGITAL MAMMOGRAPHY WITH CAD CLINICAL INFORMATION: ABNORMAL MAMMO COMPARISON: September 29, 2022 TECHNIQUE: 4 views of the right breast were obtained. FINDINGS: The right breast is composed of heterogeneous fibroglandular density tissue, which can limit the dete ction of small underlying mass lesions. Irregular lobulated asymmetric density inner quadrant RIGHT b reast measuring 17 mm is again seen on today's exam. This partially compresses out on the spot compre ssion views. Ultrasound described below ULTRASOUND BREAST RIGHT TECHNIQUE: Ultrasound right breast focused area of concern. CLINICAL INFORMATION: ABNORMAL MAMMO COMPARISON: None. FINDINGS: Ultrasound RIGHT breast inner quadrant. Ultrasound performed from the 12 to 6:00 position inner quadr ant. Dense underlying parenchymal tissue. Dense parenchymal bands. No focal cystic or solid lesions. No suspicious lesions to target for biopsy. Recommend return to annual screening mammography. MM/[place] [id number] IMPRESSION: BI-RADS: 2-Benign FOLLOW UP: 1 Year Follow-up Recommend return to annual screening mammography.
== END 2022-10-23 10:47 | disposition home or self-care (01) ==
PROVIDERS: PCP Family Medicine; Visit Provider Family Medicine
DX: R92.8 Other abnormal and inconclusive findings on diagnostic imaging of breast (principal)
CPT/HCPCS: 76642; 77061; G0279

== ENCOUNTER 2022-11-25 09:15 | Outpatient (CLI) | payer MEDICARE, SELFPAY ==
--- NOTE | 2022-11-25 | CT_ITS ---
WS: [id number] LDCT LUNG CANCER SCREENING TECHNIQUE: Noncontrast CT of the chest with coronal and sagittal reformatted images. CLINICAL INFORMATION: SCREENING COMPARISON: CT chest March 11, 2021 DLP: 79.87 mGy.cm DIvol: Mean CTDIvol: 1.60 (mGy) All CT scans at [facility] use at least one of these dose optimization techniques: automat ed exposure control; mA and/or kV adjustment per patient size (includes targeted exams where dose is matched to clinical indication); or iterative reconstruction. FINDINGS: Stable small 3 to 4 mm RIGHT lower lobe pulmonary nodule. Advanced chronic emphysematous changes. Fib rotic opacities RIGHT upper lobe with pleural thickening and traction bronchiectasis similar to previ ous. No other suspicious pulmonary parenchymal opacities. Fibrosis in the RIGHT greater than LEFT flaquita g apices. Small esophageal hiatal hernia. Aortic calcification. Normal caliber thoracic aorta. Prominent proxim al main pulmonary arteries can be seen with pulmonary arterial hypertension unchanged. No axillary lymphadenopathy. Adrenal glands are normal. Thoracic kyphosis. Mild thoracolumbar scolios is. CT/CT lung screening [id number] IMPRESSION: LUNG-RADS: 2-Benign Appearance or Behavior FOLLOW UP: 12 Month: Continue annual screening with LDCT
== END 2022-11-25 09:16 | disposition home or self-care (01) ==
PROVIDERS: PCP Family Medicine; Visit Provider Family Medicine
DX: F17.210 Nicotine dependence, cigarettes, uncomplicated (principal)
CPT/HCPCS: 71271

== ENCOUNTER 2022-12-31 10:25 | Outpatient (CLI) | payer MEDICARE, SELFPAY ==
[2022-12-31 10:52] LABS: Basophils % 0.5 %; Eosinophils % 0.3 %; Hematocrit 43.9 % (37.0-47.0); Hemoglobin 13.7 g/dL (11.5-15.3); Lymphocytes # 2.1 10^3/uL (0.8-4.8); Mean Corpuscular HGB Conc 31.2 g/dL (30.0-36.0); Mean Corpuscular Hemoglobin 29.4 pg (28.0-34.0); Mean Corpuscular Volume 94.2 fl (81-99); Mean Platelet Volume 9.6 fL (7.4-10.4); Monocytes # 0.4 10^3/uL (0.2-0.9); Monocytes % 4.5 %; Neutrophils % 70.4 %; Nucleated Red Blood Cells % 0 %; Platelet Count 244 10^3/cmm (130-400); Red Blood Count 4.66 10^6/uL (4.1-5.3); Red Cell Distribution Width 18.4 % (12.1-15.1); White Blood Count 8.8 10^3/uL (4.0-10.0)
[2022-12-31 10:54] LABS: Erythrocyte Sedimentation Rate 37 mm/hr (0-15)
[2022-12-31 11:11] LABS: Alanine Aminotransferase 11 U/L (0-33); Albumin Level 3.9 g/dL (3.5-5.2); Alkaline Phosphatase 73 U/L (35-105); Blood Urea Nitrogen 15 mg/dL (8-23); C Reactive Protein 26.2 mg/L (0.0-4.9); Calcium 9.5 mg/dL (8.5-10.5); Carbon Dioxide 25 mmol/L (22-29); Chloride 104 mmol/L (98-107); Globulin 2.9 g/dL (1.3-4.6); Glomerular Filtration Rate 82.7 mL/min (90-130); Glucose 107 mg/dL (65-115); Osmolality Calculated 291 mOsm/kg (285-295); Sodium 140 mmol/L (136-145); Total Bilirubin 0.3 mg/dL (0.15-1.2); Total Protein 6.8 g/dL (6.6-8.7)
[2022-12-31 11:31] LABS: Anion Gap 15.5 (5-19); Aspartate Amino Transferase 26 U/L (0-32); Potassium 4.5 mmol/L (3.5-5.1)
== END 2022-12-31 10:26 | disposition home or self-care (01) ==
LOC: LAB 10:31
PROVIDERS: PCP Family Medicine; Visit Provider Internal Medicine
DX: G58.9 Mononeuropathy, unspecified (principal); I73.00 Raynaud's syndrome without gangrene; K21.9 Gastro-esophageal reflux disease without esophagitis; M34.1 CR(E)ST syndrome; M41.9 Scoliosis, unspecified; M81.0 Age-related osteoporosis without current pathological fracture
CPT/HCPCS: 36415; 80053; 85025; 85651; 86140

== ENCOUNTER → 2023-01-25 13:22 | Outpatient (BNVA) | payer MEDICARE, SELFPAY | PROVIDERS: PCP Family Medicine; Visit Provider Internal Medicine Pulmonary Disease | DX: R09.02 Hypoxemia (principal); M34.1 CR(E)ST syndrome; J44.9 Chronic obstructive pulmonary disease, unspecified; F17.219 Nicotine dependence, cigarettes, with unspecified nicotine-induced disorders; I73.00 Raynaud's syndrome without gangrene | CPT/HCPCS: 99204 ==

== ENCOUNTER → 2023-01-28 14:25 | Outpatient (BNVA) | payer MEDICARE, SELFPAY | PROVIDERS: PCP Family Medicine; Visit Provider Internal Medicine | DX: I73.00 Raynaud's syndrome without gangrene (principal); M34.1 CR(E)ST syndrome; F17.219 Nicotine dependence, cigarettes, with unspecified nicotine-induced disorders; M41.9 Scoliosis, unspecified; K21.9 Gastro-esophageal reflux disease without esophagitis; G58.9 Mononeuropathy, unspecified | CPT/HCPCS: 99214 ==

== ENCOUNTER 2023-02-10 10:49 | Outpatient (RCR) | payer MEDICARE, SELFPAY | END 2023-02-14 23:59 | disposition home or self-care (01) | LOC: SPT 10:49 | PROVIDERS: PCP Family Medicine; Visit Provider Nurse Practitioner Family | DX: M54.50 Low back pain, unspecified (principal); M47.896 Other spondylosis, lumbar region; M47.892 Other spondylosis, cervical region; M51.34 Other intervertebral disc degeneration, thoracic region | CPT/HCPCS: 97161 ==

== ENCOUNTER 2023-02-16 15:02 | Outpatient (RCR) | payer MEDICARE, SELFPAY | END 2023-03-17 23:59 | disposition home or self-care (01) | LOC: SPT 15:02 | PROVIDERS: PCP Family Medicine; Visit Provider Nurse Practitioner Family | DX: M51.36 Other intervertebral disc degeneration, lumbar region (principal); M50.30 Other cervical disc degeneration, unspecified cervical region; M51.34 Other intervertebral disc degeneration, thoracic region | CPT/HCPCS: 97110 ==

== ENCOUNTER 2023-02-24 10:31 | Outpatient (CLI) | payer MEDICARE, SELFPAY ==
--- NOTE | 2023-02-24 11:00 | USCV_ITS ---
Gwendolyn Carrington Age: 72 Gender: F : 1950 Exam Date: 02/24/2023 11:17 Ordering Phys: Stephanie Dunham MD Technologist: Bob Tomlin [place] [facility] [place]: sob, edema BP: 106 / 53 HR: 82 Rhythm: Sinus Technical Quality: Adequate MEASUREMENTS (Male / Female) Normal Values 2D ECHO LVOT Diameter 1.7 cm LV Ejection Fraction MOD 2C 55.1 % LV Ejection Fraction 2C AL 55.1 % LA Diameter 3.1 cm LA Width 2.9 cm LA Height 4.8 cm RA Width 3.1 cm RA Height 4.0 cm Aorta at Sinotubular Diameter 2.0 cm IVC Diameter 1.6 cm M-MODE Aortic Annulus Diameter 2.5 cm LA Ao Ratio MM 1.3 MV E Point Septal Separation 0.1 cm DOPPLER AV Peak Velocity 162.3 cm/s LVOT Peak Velocity 136.0 cm/s AV Area Cont Eq vti 2.0 cm squared AV Area Cont Eq pk 2.0 cm squared MV Peak Velocity 119.0 cm/s MV Area PHT 5.0 cm squared Mitral E to A Ratio 0.6 MV E' Velocity 39.0 cm/s Mitral E to MV E' Ratio 4.2 Mitral E to LV E' Lateral Ratio 4.1 Mitral E to LV E' Septal Ratio 4.3 TR Peak Velocity 406.1 cm/s TR Peak Gradient 66.0 mmHg TR Mean Velocity 311.4 cm/s TR Mean Gradient 42.2 mmHg TR Velocity Time Integral 114.5 cm Right Atrial Pressure 8.0 mmHg Pulmonary Artery Systolic Pressu 74.0 mmHg PV Peak Velocity 128.0 cm/s RV Acceleration Time 0.1 s RV Ejection Time 0.3 s RV AcT/ET 0.3 FINDINGS Left Ventricle Normal left ventricular size, systolic function and wall thickness, with no regional wall motion abnormalities. Grade I/IV diastolic dysfunction (abnormal relaxation filling pattern), normal to mildly elevated filling pressures. Left ventricular ejection fraction is estimated at 55 %. Flattened septum in systole consistent with right ventricle pressure overload. Right Ventricle Moderately increased right ventricular size. Moderately decreased right ventricular systolic function. Severe pulmonary hypertension, RVSP 74 mmHg. Right Atrium Moderately increased right atrial size. Left Atrium Mildly increased left atrial size. Mitral Valve Structurally normal mitral valve. Trace mitral valve regurgitation. Aortic Valve Structurally normal aortic valve without significant sclerosis or stenosis. There is no aortic regurgitation. Tricuspid Valve Structurally normal tricuspid valve. [id number] tricuspid valve regurgitation. Pulmonic Valve Pulmonic valve not well visualized. Moderate pulmonary valve regurgitation. Pericardium Normal pericardium without effusion. Aorta Normal ascending aorta dimension. IVC The inferior vena cava does not collapse normally with respiration. Right atrial pressure 15 mmHg. CONCLUSIONS Normal left ventricular size, systolic function and wall thickness, with no regional wall motion abnormalities. Grade I/IV diastolic dysfunction (abnormal relaxation filling pattern), normal to mildly elevated filling pressures. Left ventricular ejection fraction is estimated at 55 %. Flattened septum in systole consistent with right ventricle pressure overload. Moderately increased right ventricular size. Moderately decreased right ventricular systolic function. Severe pulmonary hypertension, RVSP 74 mmHg. Moderately increased right atrial size. Mildly increased left atrial size. Structurally normal mitral valve. Trace mitral valve regurgitation. Structurally normal tricuspid valve. [id number] tricuspid valve regurgitation. Pulmonic valve not well visualized. Moderate pulmonary valve regurgitation. The inferior vena cava does not collapse normally with respiration. Right atrial pressure 15 mmHg. From 05/14/2021, the right heart enlargement, tricuspid and pulmonic regurgitation and pulmonary hypertension are new. Dr. Nic Jordan MD (Electronically Signed) Final Date: 24 Feb 2023 16:24 S
== END 2023-02-24 10:32 | disposition home or self-care (01) ==
LOC: RAD 10:43
PROVIDERS: PCP Family Medicine; Visit Provider Internal Medicine
DX: I27.20 Pulmonary hypertension, unspecified (principal); I07.1 Rheumatic tricuspid insufficiency; I37.1 Nonrheumatic pulmonary valve insufficiency
CPT/HCPCS: 93306; 99214

== ENCOUNTER 2023-02-25 11:37 | Inpatient (IN) | payer MEDICARE, SELFPAY ==
[2023-02-25] VITALS (9 sets, daily range): BP systolic 106–145; BP diastolic 52–76; PULSE 59–112; RESP 14–20; TEMP 36.4–36.7; O2SAT 84–98; BMI 24.9
--- NOTE | 2023-02-25 11:52 | ED_ITS ---
HPI - SOB/Dyspnea General: Chief Complaint: Shortness of Breath/Dyspnea Stated Complaint: [place] sent for sob/neck problems Time Seen by Provider: 02/25/23 11:51 History of Present Illness: HPI Narrative: Ms. Carrington is a 72-year-old lady with significant history of COPD, dysphagia, Raynaud's presenting to the emergency department for concern over abnormal neck swelling and shortness of breath. She notes worsening symptoms over the past few days including lower extremity edema. She noticed a bulging vein in the left side of her neck which has since worsened and has some adjacent swelling. She was seen in clinic and found to be hypoxemic. She does not have a baseline oxygen requirement. Overall course of symptoms has worsened. Intensity of symptoms moderate. No other specific changes in health, exacerbating, or alleviating factors identified. Onset (ago): day(s) Timing: progressively worsening Severity: moderate Exacerbating factors: exertion Relieving factors: nothing Known history of: COPD Review of Systems General: Reports: 10 or more systems reviewed and unremarkable except in HPI and below PFSH ED PFSH: Medical History COPD (chronic obstructive pulmonary disease) Dysphagia Gastritis GERD (gastroesophageal reflux disease) Hiatal hernia Raynauds disease Scoliosis Surgical History History of hysterectomy 1975 Family History Mother Dementia Denies family history of Diabetes CAD (coronary artery disease) Psychiatric illness Lung disease Cancer Stroke Social History Smoking and tobacco status: current every day smoker cigarettes Packs smoked per day: 1 Years cigarettes smoked: 51 [ Other cigarette details: Started at age 21] Alcohol intake: never Substance/Drug Use: never Lives independently: No Physical Exam Const: COMMON NORMALS: alert GENERAL APPEARANCE: cooperative and well developed HENMT: COMMON NORMALS: normocephalic and atraumatic HEAD & SCALP: normocephalic and atraumatic THROAT: posterior oropharynx normal Eye: COMMON NORMALS: conjunctivae normal CONJUNCTIVA: Yes conjunctivae normal SCLERA: sclerae normal Neck/C-Spine: COMMON NORMALS: supple GENERAL: Yes trachea midline OTHER: Left JVD with fullness in the supraclavicular region Resp: EFFORT & INSPECTION: Yes able to speak in complete sentences AUSCULTATION: diminished lung sounds Cardio: COMMON NORMALS: regular rate and regular rhythm RATE: regular rate RHYTHM: regular rhythm GI: COMMON NORMALS: Soft to palpation PALPATION: Yes Soft to palpation and No Tenderness to palpation present (GI) Extremity: GENERAL: Yes normal exam except as noted and Yes edema (2+) Neuro: COMMON NORMALS: moves all extremities SENSORIUM/ORIENTATION: Yes alert and No Orientation impaired Psych: COMMON NORMALS: mental status grossly normal and Normal thought process present THOUGHT PROCESS: Normal thought process present Course Vital Signs: Vital signs: Vital Signs Temperature 97.7 F 02/26/23 20:00 Pulse Rate 80 02/26/23 20:00 Respiratory Rate 18 02/26/23 20:00 Blood Pressure 99/57 02/26/23 20:00 Pulse Oximetry 92 02/26/23 20:00 Oxygen Delivery Me thod Nasal Cannula 02/26/23 20:00 Oxygen Flow Rate 3 02/26/23 20:00 MDM - SOB/Dyspnea Medical Decision Making 72-year-old lady with increasing shortness of breath and lower extremity edema concern over left neck swelling and hypoxia noted at clinic. No baseline oxygen requirement though she does have COPD, patient does not have a diagnosed history of heart failure. EKG demonstrates sinus rhythm with ST segment abnormalities, no STEMI. Labs notable for no leukocytosis, hemoglobin normal. Metabolic panel with no significant derangement. Negative range 2-hour delta troponin. Elevated BNP. Chest x-ray with emphysema. Given physical exam findings CT imaging is appropriate. Patient has allergy to iodinated contrast. CTs are negative for mass or other clear abnormality to explain neck symptoms. Mostly etiology of symptoms is multifactorial including new onset heart failure symptoms and COPD exacerbation. Patient treated with RT treatment, steroids, analgesia. The results of ED evaluation were discussed with the patient including plan for admission due to requirement for level of care not available if discharged to prevent significant worsening/deterioration. Patient agreeable with plan. Discussed with hospitalist service who was agreeable to admit patient. Medical Records I reviewed the patient's medical records. Lab Data I reviewed the patient's lab results. 02/26/23 05:27 02/26/23 05:27 Labs/Radiology: Radiology Impressions Chest CT 02/25/23 13:16 IMPRESSION: 1. No acute chest findings. 2. Advanced chronic emphysematous changes unchanged from previous. 3. No acute pulmonary infiltrates. 4. Small esophageal hiatal hernia. Neck CT 02/25/23 13:16 IMPRESSION: No suspicious abnormalities deep to the palpable marker LEFT neck. Normal underlying vessels in this location. Pulmonary Perfusion Imaging 02/26/23 11:18 IMPRESSION: 1. Low probability for pulmonary embolus. Chest X-Ray 02/26/23 12:02 Impression: 1. Diffuse interstitial change most consistent with chronic interstitial pneumonia. 2. Atherosclerosis and hyperinflation. Laboratory Results WBC 8.5 10^3/uL (4.0-10.0) 02/25/23 12:09 RBC 4.86 10^6/uL (4.1-5.3) 02/25/23 12:09 Hgb 13.9 g/dL (11.5-15.3) 02/25/23 12:09 Hct 45.1 % (37.0-47.0) 02/25/23 12:09 MCV 92.8 fl (81-99) 02/25/23 12:09 MCH 28.6 pg (28.0-34.0) 02/25/23 12:09 MCHC 30.8 g/dL (30.0-36.0) 02/25/23 12:09 RDW 19.7 % (12.1-15.1) H 02/25/23 12:09 Plt Count 226 10^3/cmm (130-400) 02/25/23 12:09 MPV 9.6 fL (7.4-10.4) 02/25/23 12:09 Neut % (Auto) 68.0 % 02/25/23 12:09 Lymph % (Auto) 24.8 % 02/25/23 12:09 [place] % (Auto) 6.6 % 02/25/23 12:09 Eos % (Auto) 0.1 % 02/25/23 12:09 Baso % (Auto) 0.4 % 02/25/23 12:09 Neut # (Auto) 5.78 10^3/uL (1.8-7.7) 02/25/23 12:09 Lymph # (Auto) 2.1 10^3/uL (0.8-4.8) 02/25/23 12:09 [place] # (Auto) 0.6 10^3/uL (0.2-0.9) 02/25/23 12:09 Eos # (Auto) 0.0 10^3/uL (0.0-0.8) 02/25/23 12:09 Baso # (Auto) 0.0 10^3/uL (0.0-0.1) 02/25/23 12:09 Nucleated RBC % (auto) 0 % 02/25/23 12:09 Nucleated RBCs # 0.0 /100WBC 02/25/23 12:09 Sodium 140 mmol/L (136-145) 02/25/23 12:09 Potassium 4.0 mmol/L (3.5-5.1) 02/25/23 12:09 Chloride 102 mmol/L (98-107) 02/25/23 12:09 Carbon Dioxide 25 mmol/L (22-29) 02/25/23 12:09 Anion Gap 17.0 (5-19) 02/25/23 12:09 BUN 17 mg/dL (8-23) 02/25/23 12:09 Creatinine 0.8 mg/dL (0.5-0.9) 02/25/23 12:09 GFR Calculation 70.9 mL/min (90-130) L 02/25/23 12:09 Glucose 86 mg/dL (65-115) 02/25/23 12:09 Calculated Osmolality 291 mOsm/kg (285-295) 02/25/23 12:09 Calcium 9.1 mg/dL (8.5-10.5) 02/25/23 12:09 Magnesium 1.9 mg/dL (1.7-2.3) 02/25/23 12:09 Total Bilirubin 0.4 mg/dL (0.15-1.2) 02/25/23 12:09 AST 28 U/L (0-32) 02/25/23 12:09 ALT 17 U/L (0-33) 02/25/23 12:09 Alkaline Phosphatase 89 U/L (35-105) 02/25/23 12:09 Troponin T Baseline 18 ng/L (0-10) H 02/25/23 12:09 Troponin T 120 Minute 15.86 ng/L (0-10) H 02/25/23 14:25 Delta Troponin T -2.14 ABS# (0-10) L 02/25/23 14:25 NT-Pro-B Natriuret Pep 7790 pg/mL (0-125) H 02/25/23 12:09 Total Protein 6.7 g/dL (6.6-8.7) 02/25/23 12:09 Albumin 4.3 g/dL (3.5-5.2) 02/25/23 12:09 Globulin 2.4 g/dL (1.3-4.6) 02/25/23 12:09 Discharge Plan Discharge Patient Disposition: Placed in Observation Admit Provider: Jose Juan Andrews Clinical Impression: Congestive heart failure, Hypoxia, Edema Coding Level of Care Code ED Spanish Literature Professor for Amy Lacey
--- NOTE | 2023-02-25 11:57 | XRR_ITS ---
PROCEDURE INFORMATION: Exam: XR Chest Exam date and time: 02/25/2023 12:08 PM Age: 72 years old Clinical indication: Shortness of breath; Additional info: SOB TECHNIQUE: Imaging protocol: Radiologic exam of the chest. Views: 1 view. COMPARISON: CT lung screening [id number] 11/25/2022 9:37 AM FINDINGS: Lungs: There is diffuse interstitial prominence likely reflecting known severe emphysema. Subsegmental atelectasis or scarring in the right upper lobe. Pleural spaces: No pleural effusion. No pneumothorax. Heart/Mediastinum: The cardiac silhouette is unchanged. No gross evidence of pneumomediastinum. Bones/joints: No gross fracture. Calcific tendinosis of the left rotator cuff. XR/XR chest 1V portable [id number] IMPRESSION: Diffuse interstitial prominence likely reflecting known severe emphysema.
[2023-02-25 12:28] LABS: Basophils % 0.4 %; Eosinophils % 0.1 %; Hematocrit 45.1 % (37.0-47.0); Hemoglobin 13.9 g/dL (11.5-15.3); Lymphocytes # 2.1 10^3/uL (0.8-4.8); Lymphocytes % 24.8 %; Mean Corpuscular HGB Conc 30.8 g/dL (30.0-36.0); Mean Corpuscular Hemoglobin 28.6 pg (28.0-34.0); Mean Corpuscular Volume 92.8 fl (81-99); Mean Platelet Volume 9.6 fL (7.4-10.4); Monocytes # 0.6 10^3/uL (0.2-0.9); Monocytes % 6.6 %; Neutrophils # 5.78 10^3/uL (1.8-7.7); Nucleated Red Blood Cells % 0 %; Platelet Count 226 10^3/cmm (130-400); Red Blood Count 4.86 10^6/uL (4.1-5.3); Red Cell Distribution Width 19.7 % (12.1-15.1); White Blood Count 8.5 10^3/uL (4.0-10.0)
--- NOTE | 2023-02-25 12:41 | ECG_ITS ---
[facility] Test Date: 2023-02-25 Pat Name: Gwendolyn Carrington Department: Room: Gender: Female Blood Bank Laboratory Technologist: : 1950 Requested By: Luis Angel Cantu Order Number: [id number] Radha MD: Nic Jordan M.D. Measurements Intervals [place] Rate: 79 P: 74 NM: 133 QRS: 118 QRSD: 102 T: -24 QT: 392 QTc: 450 Interpretive Statements SINUS RHYTHM No previous ECG available for comparison Electronically Signed On 02-25-2023 14:03:03 CDT by Nic Jordan M.D. [id number]
[2023-02-25 12:53] LABS: Blood Urea Nitrogen 17 mg/dL (8-23); Calcium 9.1 mg/dL (8.5-10.5); Carbon Dioxide 25 mmol/L (22-29); Chloride 102 mmol/L (98-107); Glomerular Filtration Rate 70.9 mL/min (90-130); Magnesium 1.9 mg/dL (1.7-2.3); Sodium 140 mmol/L (136-145); Total Bilirubin 0.4 mg/dL (0.15-1.2); Total Protein 6.7 g/dL (6.6-8.7)
[2023-02-25] MEDS: ipratropium-albuterol 3 mL Neb INHALATION (12:54)
--- NOTE | 2023-02-25 13:16 | CT_ITS ---
WS: [id number] CT NECK TECHNIQUE: Noncontrast CT of the neck with coronal and sagittal reformatted images. CLINICAL INFORMATION: L sided neck swelling COMPARISON: None. DLP: 176.[address] scans at [facility] use at least one of these dose optimization techniques: automated e xposure control; mA and/or kV adjustment per patient size (includes targeted exams where dose is matc hed to clinical indication); or iterative reconstruction. FINDINGS: No suspicious abnormalities deep to the palpable marker LEFT neck. Normal underlying vessels in this location. Paranasal sinuses and mastoid air cells well aerated. Normal posterior nasopharynx. Normal parapharyn geal fat. Vascular calcification. No cervical lymphadenopathy. Normal visualized thyroid gland. Sligh t anterolisthesis C3 on C4. Moderate spondylitic changes cervical spine. CT/CT neck wo con [id number] IMPRESSION: No suspicious abnormalities deep to the palpable marker LEFT neck. Normal under lying vessels in this location.
--- NOTE | 2023-02-25 13:16 | CT_ITS ---
WS: [id number] CT CHEST TECHNIQUE: Noncontrast CT of the chest with coronal and sagittal reformatted images. CLINICAL INFORMATION: sob, hypoxia COMPARISON: None. DLP: 212.[address] scans at [facility] use at least one of these dose optimization techniques: automated e xposure control; mA and/or kV adjustment per patient size (includes targeted exams where dose is matc hed to clinical indication); or iterative reconstruction. FINDINGS: Advanced chronic emphysematous changes with pleural parenchymal scarring in the lung apices . This is unchanged from previous. No acute pulmonary infiltrates. No focal pneumonia or pleural flui d. Prominent main pulmonary arteries can be seen with pulmonary arterial hypertension. Aortic calcifi cation. Normal caliber thoracic aorta. No mediastinal or hilar lymphadenopathy. No axillary lymphaden opathy. Adrenal glands are normal. Small esophageal hiatal hernia. Mild thoracic kyphosis. Mild thoracic curve convex LEFT. Small 3 to 4 mm RIGHT lower lobe pulmonary nodule unchanged. CT/CT chest wo con [id number] IMPRESSION: 1. No acute chest findings. 2. Advanced chronic emphysematous changes unchanged from previous. 3. No acute pulmonary infiltrates. 4. Small esophageal hiatal hernia.
[2023-02-25 13:31] LABS: Troponin(5th) Baseline 18 ng/L (0-10)
[2023-02-25 13:40] LABS: Alanine Aminotransferase 17 U/L (0-33); Albumin Level 4.3 g/dL (3.5-5.2); Alkaline Phosphatase 89 U/L (35-105); Aspartate Amino Transferase 28 U/L (0-32); Globulin 2.4 g/dL (1.3-4.6); Glucose 86 mg/dL (65-115); NT Pro B Type Natriuretic Pept 7790 pg/mL (0-125); Osmolality Calculated 291 mOsm/kg (285-295)
--- NOTE | 2023-02-25 14:13 | ECG_ITS ---
[facility] Test Date: 2023-02-25 Pat Name: Gwendolyn Carrington Department: Room: Gender: Female Dump Operator: : 1950 Requested By: Luis Angel Cantu Order Number: [id number] Radha MD: Nic Jordan M.D. Measurements Intervals [place] Rate: 80 P: 75 [place]: 135 QRS: 112 QRSD: 102 T: -37 QT: 403 QTc: 465 Interpretive Statements SINUS RHYTHM Compared to ECG 02/25/2023 12:41:18 No significant changes Electronically Signed On 02-25-2023 14:15:33 CDT by Nic Jordan M.D. [id number]
[2023-02-25 14:57] LABS: Troponin 5 2HR 15.86 ng/L (0-10)
[2023-02-25 14:58] LABS: Troponin 5 2HR Delta -2.14 ABS# (0-10)
[2023-02-25] MEDS: HYDROcodone-acetaminophen 7.5-325 mg Tablet 1 TAB PO (15:56)
--- NOTE | 2023-02-25 17:26 | P.HP_ITS ---
Providers/Chief Complaint Admitting Physician: Jose Juan Andrews MD Primary Care Provider: Delroy Jones MD Chief Complaint: [place] sent for sob/neck problems History of Present Illness Gwendolyn Carrington is a 72 year old female with new onset of shortness of breath which started 2 weeks ago she has been noticing fluid overload, shortness of breath orthopnea PND, she is endorsing fluid gain as well, last night when she will went to bed she noticed heaviness in her left side of her neck which she described as heaviness. She did not experience any chest pain nausea, vomiting recent fever. She does not carry previous history of coronary disease TN or CHF in the ER she has been diagnosed with new onset CHF In the ER she was diagnosed with right-sided heart failure, CT neck unremarkable, I will request D-dimer, EKG unremarkable troponin with negative delta Echo was done yesterday showed severe pulm hypertension Review of Systems Const: Denies: fever(s) Eyes: Denies: change in vision ENMT: Denies: throat pain Card: Denies: chest pain Resp: Reports: dyspnea GI: Denies: abdominal pain : Denies: flank pain Musc: Denies: neck pain Skin/Breast: Denies: rash Neuro: Denies: headache(s) Psych: Denies: anxiety Medications/Allergies Home Medications Medication Instructions Recorded Confirmed Last Taken Type budesonide-formoterol HFA 80 2 puff inhalation BID 11/27/20 02/25/23 02/25/23 History mcg-4.5 mcg/actuation aerosol inhaler (Symbicort) buspirone 5 mg tablet 5 mg PO BID PRN Anxiety 11/27/20 02/25/23 10/31/21 History gabapentin 300 mg capsule 300 mg PO BEDTIME 11/27/20 02/25/23 02/24/23 21:00 Hi story hydrocodone 7.5 mg-acetaminophen 1 tab PO Q8H PRN Pain 11/27/20 02/25/23 10/31/21 History 325 mg tablet nitroglycerin 2 % transdermal 1 inch transdermal BID 11/27/20 02/25/23 10/31/21 History ointment (Nitro-Bid) potassium chloride 10 mEq 10 meq PO DAILY 11/27/20 02/25/23 02/24/23 History capsule,extended release rosuvastatin 40 mg tablet 40 mg PO DAILY 11/27/20 02/25/23 02/24/23 History verapamil 80 mg tablet 80 mg PO BID 11/27/20 02/25/23 02/25/23 06:00 History cholecalciferol (vitamin D3) 50 50 mcg PO DAILY 05/19/21 02/25/23 02/25/23 History mcg (2,000 unit) capsule mirtazapine 15 mg tablet 15 mg PO BEDTIME 05/19/21 02/25/23 02/24/23 History omeprazole 20 mg capsule,delayed 20 mg PO BIDWMEAL #0 caps 06/24/21 02/25/23 02/25/23 Rx release albuterol sulfate 90 mcg/actuation 2 puff inhalation Q6H PRN 01/25/23 02/25/23 Unknown History aerosol inhaler Shortness Of Breath vit C 250 mg-vit E 90 mg-zinc 40 1 tab PO BID 01/25/23 02/25/23 02/25/23 History mg-copper 1 ay-wxgwvz-xadiyl capsule (PreserVision AREDS-2) cyclobenzaprine 10 mg tablet 10 mg PO TID PRN muscle spasm #20 01/28/23 02/25/23 Unknown Rx tabs prednisone 5 mg tablet 5 mg PO DAILY #30 tabs 01/28/23 02/25/23 02/25/23 Rx sulfasalazine 500 mg tablet 0.5 g PO BEDTIME 02/25/23 02/25/23 02/24/23 21:00 History tizanidine 4 mg tablet 4 mg PO TID PRN Muscle Pain 02/25/23 02/25/23 Unknown History Allergies Allergy/AdvReac Type Severity Reaction Status Date / Time codeine Allergy na Verified 01/28/23 14:37 Iodinated Contrast Media Allergy ALGY-Anaphy Verified 01/28/23 14:37 laxis midazolam [From Versed] Allergy na Verified 01/28/23 14:37 pregabalin [From Lyrica] Allergy na Verified 01/28/23 14:37 PFSH Acute PFSH: Medical History COPD (chronic obstructive pulmonary disease) Dysphagia Gastritis GERD (gastroesophageal reflux disease) Hiatal hernia Raynauds disease Scoliosis Surgical History History of hysterectomy 1976 Family History Mother Dementia Denies family history of Diabetes CAD (coronary artery disease) Psychiatric illness Lung disease Cancer Stroke Social History Smoking and tobacco status: current every day smoker cigarettes Packs smoked per day: 1 Years cigarettes smoked: 51 [ Other cigarette details: Started at age 21] Alcohol intake: never Substance/Drug Use: never Lives independently: No Vitals/I&O/Wt Last Vital Signs Temp 98.1 F 02/25/23 11:43 Pulse 59 L 02/25/23 15:59 Resp 16 02/25/23 15:59 BP 114/59 02/25/23 15:59 Pulse Ox 94 02/25/23 15:59 O2 Del Method Nasal Cannula 02/25/23 16:28 O2 Flow Rate 3 02/25/23 15:59 Weight last 48 hrs Weight 61.87 kg Weight 60.781 kg Physical Exam Narrative: Clinical signs of fluid overload Positive JVD Currently on 2 L Abdomen soft Pleasant and cooperative S1, S2 Aortic murmur Abdomen soft at the bedside Pleasant and cooperative Appears stated age Data 02/26/23 05:27 02/26/23 05:27 A&P Assessment and plan (1) New onset of congestive heart failure: (2) Pulmonary hypertension: (3) Hypoxia: (4) Edema: (5) COPD (chronic obstructive pulmonary disease): (6) CREST syndrome: (7) Raynauds disease: Plan Diastolic CHF exacerbation Likely underlying sleep apnea We will request pulse ox overnight Severe pulmonary hypertension noted We will start diuresis with IV diuretics Monitor blood pressure Monitor urine output Patient is full code Cardiac diet She will need referral to pulmonary hypertension clinic at the time of discharge Rule out sleep apnea Request TSH and hemoglobin A1c Attestations Medical Necessity Statement*: Anticipating discharge within 48 hours Diagnoses New onset of congestive heart failure I50.9 Pulmonary hypertension I27.20 Hypoxia R09.02 Edema R60.9 COPD (chronic obstructive pulmonary disease) J44.9 CREST syndrome M34.1 Raynauds disease I73.00
[2023-02-25] MEDS: heparin 5,000 unit/mL INJ 1 mL 5000 UNIT SUBCUT (17:57)
--- NOTE | 2023-02-25 17:58 | ECG_ITS ---
[facility] Test Date: 2023-02-25 Pat Name: Gwendolyn Carrington Department: Room: 261 Gender: Female Proposal Rep: : 1950 Requested By: Luis Angel Cantu Order Number: [id number] Radha MD: Gordon Dunn M.D. Measurements Intervals [place] Rate: 88 P: 69 MA: 132 QRS: 126 QRSD: 99 T: -61 QT: 367 QTc: 446 Interpretive Statements SINUS RHYTHM Compared to ECG 02/25/2023 14:13:26 No significant changes Electronically Signed On 02-26-2023 12:01:42 CDT by Gordon Dunn M.D. [id number]
[2023-02-25] MEDS: FUROsemide 10 mg/mL SDV 2mL 20 MG IVP (18:21)
[2023-02-25 18:35] LABS: Troponin 5 6HR 18.87 ng/L (0-10); Troponin 5 6HR Delta 0.87 ng/L (0-12)
[2023-02-25 18:48] LABS: Estmated Average Glucose 128; Hemoglobin A1C 6.1 % (4.0-6.0)
[2023-02-25 18:54] LABS: Thyroid Stimulating Hormone 1.95 uIU/mL (0.27-4.20)
[2023-02-25] MEDS: NON-FORMULARY MEDICATION PO (23:32)
[2023-02-26] VITALS: BP 116/69; PULSE 102; RESP 18; TEMP 36.5; O2SAT 97
[2023-02-26 03:39] VITALS: BP 111/60; PULSE 85; RESP 16; TEMP 36.6; O2SAT 82
[2023-02-26] MEDS: heparin 5,000 unit/mL INJ 1 mL 5000 UNIT SUBCUT ×2 (05:37→17:08)
[2023-02-26 05:52] LABS: Basophils % 0.6 %; Eosinophils # 0.1 10^3/uL (0.0-0.8); Eosinophils % 1.5 %; Hematocrit 42.5 % (37.0-47.0); Hemoglobin 12.7 g/dL (11.5-15.3); Lymphocytes # 3.4 10^3/uL (0.8-4.8); Lymphocytes % 51.7 %; Mean Corpuscular HGB Conc 29.9 g/dL (30.0-36.0); Mean Corpuscular Hemoglobin 27.5 pg (28.0-34.0); Mean Platelet Volume 9.2 fL (7.4-10.4); Monocytes # 0.7 10^3/uL (0.2-0.9); Monocytes % 10.3 %; Neutrophils # 2.36 10^3/uL (1.8-7.7); Neutrophils % 35.7 %; Nucleated Red Blood Cells % 0 %; Platelet Count 183 10^3/cmm (130-400); Red Blood Count 4.62 10^6/uL (4.1-5.3); Red Cell Distribution Width 19.3 % (12.1-15.1); White Blood Count 6.6 10^3/uL (4.0-10.0)
[2023-02-26] MEDS: FUROsemide 10 mg/mL SDV 2mL 20 MG IVP (05:52)
[2023-02-26 06:12] LABS: Anion Gap 16.5 (5-19); Blood Urea Nitrogen 14 mg/dL (8-23); C Reactive Protein 26.3 mg/L (0.0-4.9); Calcium 8.9 mg/dL (8.5-10.5); Carbon Dioxide 26 mmol/L (22-29); Chloride 105 mmol/L (98-107); Glomerular Filtration Rate 70.9 mL/min (90-130); Glucose 76 mg/dL (65-115); Osmolality Calculated 297 mOsm/kg (285-295); Potassium 3.5 mmol/L (3.5-5.1); Sodium 144 mmol/L (136-145)
[2023-02-26 08:00] VITALS: BP 116/68; PULSE 75; RESP 16; TEMP 36.4; O2SAT 93
[2023-02-26 08:26] VITALS: PULSE 78; RESP 20; O2SAT 92
[2023-02-26] MEDS: pantoprazole DR 40 mg Tablet PO ×2 (08:27→17:08)
[2023-02-26] MEDS: atorvastatin 40 mg Tablet PO (08:28)
[2023-02-26] MEDS: acetaminophen 500 mg Tablet PO (08:28)
--- NOTE | 2023-02-26 10:57 | P.PN_ITS ---
Subjective Subjective: This morning patient endorsing feeling better Adequate diuresis Patient is stating that she has been going to the bathroom every hour her urine output has not been calculated accurately We talked about pulm hypertension Septum deviation and how it can cause respiratory and cardiac compromise in f uture She would like to talk with the parachute repairer We also talked about pulmonary hypertension clinic in December which No significant overnight events Vitals/I&O/Wt Last Vital Signs Temp 97.5 F L 02/26/23 08:00 Pulse 78 02/26/23 08:26 Resp 20 H 02/26/23 08:26 BP 116/68 02/26/23 08:00 Pulse Ox 92 02/26/23 08:26 O2 Del Method Nasal Cannula 02/26/23 08:26 O2 Flow Rate 3 02/26/23 08:26 Weight last 48 hrs Weight 61.87 kg Weight 60.781 kg Physical Exam Narrative: Awake and alert Signs of fluid overload Right-sided heart failure symptoms Positive JVD 1+ edema of legs Abdomen soft S1, S2 Currently on 2 L nasal cannula Pleasant and cooperative is at the bedside Data 02/26/23 05:27 02/26/23 05:27 A&P Assessment and plan (1) Pulmonary hypertension: (2) New onset of congestive heart failure: (3) Congestive heart failure: (4) Hypoxia: (5) CREST syndrome: (6) COPD (chronic obstructive pulmonary disease): (7) Nocturnal hypoxemia: Plan New onset heart failure Right-sided heart failure with significant right ventricle overload with septal deviation Severe pulm hypertension likely due to underlying crest syndrome She will need pulmonary hypertension clinic follow-up For now patient is requesting talking to her parachute repairer We did talk about diagnostic angiogram, use of Viagra if she is responsive to nitrates For now we will continue IV diuresis Monitor urine output She is full code Cardiac diet Acute hypoxia related to CHF Wean oxygen to room air Anticipating discharge in next 24 hours High D-dimer: Requested CTA chest rule out PE Nocturnal hypoxemia: We will need sleep study referral at the time of discharge Overnight study conducted Attestations Medical Necessity Statement*: Anticipating discharge in next 24 to 48 hours Diagnoses Pulmonary hypertension I27.20 New onset of congestive heart failure I50.9 Congestive heart failure I50.9 Hypoxia R09.02 CREST syndrome M34.1 COPD (chronic obstructive pulmonary disease) J44.9 Nocturnal hypoxemia G47.34
--- NOTE | 2023-02-26 11:18 | NM_ITS ---
WS: [id number] NUCLEAR MEDICINE LUNG VENTILATION AND PERFUSION CLINICAL INFORMATION: hypoxia TECHNIQUE: Ventilation/perfusion lung scan with 32.5 mCi technetium 99m DTPA and 5.3 mCi MAA. COMPARISON: CT chest 02/25/23 FINDINGS: Advanced chronic emphysematous changes with interstitial thickening. Diffuse patchy radiotracer uptak e on the perfusion images. Radiotracer deposition along the central bronchi on the ventilatory images . Patchy radiotracer uptake on the ventilation images due to emphysematous change. Several matched ve ntilation/perfusion defects. No focal mismatched VQ defects to indicate pulmonary embolus. NM/NM pul vent and perfus* [id number] IMPRESSION: 1. Low probability for pulmonary embolus.
[2023-02-26 11:34] VITALS: BP 96/54; PULSE 80; RESP 17; TEMP 36.8; O2SAT 91
--- NOTE | 2023-02-26 12:02 | XR_ITS ---
WS: [id number] Portable AP upright chest, 02/26/2023 Clinical Data: VQ SCAN COMPARISON, HYPOXIA Comparison: Portable chest, 02/25/2023 Findings: There is diffuse interstitial change throughout both lungs consistent with atelectasis and/ or fibrosis. No nodules, masses or effusions are seen. The heart is at the upper limits of normal. Th e pulmonary vascularity is not increased. The aortic arch and descending thoracic aorta shows minimal calcification and tortuosity. XR/XR chest 1V portable [id number] Impression: 1. Diffuse interstitial change most consistent with chronic interstitial pneumo reece. 2. Atherosclerosis and hyperinflation.
[2023-02-26] MEDS: HYDROcodone-acetaminophen 7.5-325 mg Tablet 1 TAB PO ×2 (13:01→20:47)
--- NOTE | 2023-02-26 15:52 | PM.CONSULT ---
Providers/Reason For Consult Consulting Physician/Specialty*: SELENA Mosher MD/cardiology Reason for Consult*: Patient with a diastolic heart failure/severe pulmonary hypertension Requesting Physician: Dr. Andrews Attending Physician: Jose Juan Andrews MD Primary Care Provider: Delroy Jones MD History of Present Illness History of Present Illness Gwendolyn Carrington is a 72 year old female is admitted to hospital through the emergency room where she presented with complaints of progressive shortness of breath. She was found to have features of right heart failure. The echocardiogram revealed a severe pulmonary hypertension. Cardiology consult is requested for further cardiac evaluation recommendations. This patient is known to have COPD, GERD, CREST syndrome, dyslipidemia and smoking abuse. She apparently has been in her baseline state of health up until 2 weeks ago when she started experiencing fullness/tightness in her neck and swelling of the extremities. She also was found to be somewhat hypoxemic in the clinic. She did not have any chest pain. No fever, chills or cough. No palpitations, dizziness or syncopal episode. She was diagnosed with CREST syndrome approximately 18 years ago while she was still in [place]. She been seeing a crude tester for the last 8 years or so. She has been taking verapamil for 8 years. She was started on a low-dose of prednisone recently and sulfasalazine. She has Raynaud's syndrome and some esophageal motility problems. She has no history for pulmonary hypertension. She has been smoking 1 pack a day for the last 30 years. No alcohol abuse or any substance abuse. No history for DVT or pulmonary embolism. No history for kidney disease, liver disease or bleeding disorders. Since the hospital admission, she was placed on Lasix intravenously. She has significant improvement of the leg swelling. She has no previous history for coronary disease, myocardial infarction or congestive heart failure. No family history for coronary artery disease or any continued tissue disorders. She has been using bronchodilators for the reactive airway disease. She has a history of iodine allergy. Review of Systems Narrative: CONSTITUTIONAL: No fever or chills. EYES: No blurring of vision or other visual disturbances lately. ENT: No hoarseness of voice, auditory disturbances or sore throat. CARDIOVASCULAR: As mentioned above. RESPIRATORY: As mentioned above GASTROINTESTINAL: History of esophageal motility disorder GENITOURINARY: No dysuria or hematuria. INTEGUMENTARY: No skin rashes or history of skin cancer. NEURO: No transient ischemic attacks or amaurosis. PSYCHIATRIC: No history of psychosis or major depression. HEMATOLOGIC: No bleeding disorders or significant anemia. ENDOCRINE: No history for diabetes MUSCULOSKELETAL: No recent joint pain or swelling. ALLERGY/IMMUNOLOGY: As mentioned above. Medications/Allergies Home Medications Medication Instructions Recorded Confirmed Last Taken Type budesonide-formoterol HFA 80 2 puff inhalation BID 11/27/20 02/25/23 02/25/23 History mcg-4.5 mcg/actuation aerosol inhaler (Symbicort) buspirone 5 mg tablet 5 mg PO BID PRN Anxiety 11/27/20 02/25/23 10/31/21 History gabapentin 300 mg capsule 300 mg PO BEDTIME 11/27/20 02/25/23 02/24/23 21:00 History hydrocodone 7.5 mg-acetaminophen 1 tab PO Q8H PRN Pain 11/27/20 02/25/23 10/31/21 History 325 mg tablet nitroglycerin 2 % transdermal 1 inch transdermal BID 11/27/20 02/25/23 10/31/21 History ointment (Nitro-Bid) potassium chloride 10 mEq 10 meq PO DAILY 11/27/20 02/25/23 02/24/23 History capsule,extended release rosuvastatin 40 mg tablet 40 mg PO DAILY 11/27/20 02/25/23 02/24/23 History verapamil 80 mg tablet 80 mg PO BID 11/27/20 02/25/23 02/25/23 06:00 History cholecalciferol (vitamin D3) 50 50 mcg PO DAILY 05/19/21 02/25/23 02/25/23 History mcg (2,000 unit) capsule mirtazapine 15 mg tablet 15 mg PO BEDTIME 05/19/21 02/25/23 02/24/23 History omeprazole 20 mg capsule,delayed 20 mg PO BIDWMEAL #0 caps 06/24/21 02/25/23 02/25/23 Rx release albuterol sulfate 90 mcg/actuation 2 puff inhalation Q6H PRN 01/25/23 02/25/23 Unknown History aerosol inhaler Shortness Of Breath vit C 250 mg-vit E 90 mg-zinc 40 1 tab PO BID 01/25/23 02/25/23 02/25/23 History mg-copper 1 [id number] capsule (PreserVision AREDS-2) cyclobenzaprine 10 mg tablet 10 mg PO TID PRN muscle spasm #20 01/28/23 02/25/23 Unknown Rx tabs prednisone 5 mg tablet 5 mg PO DAILY #30 tabs 01/28/23 02/25/23 02/25/23 Rx sulfasalazine 500 mg tablet 0.5 g PO BEDTIME 02/25/23 02/25/23 02/24/23 21:00 History tizanidine 4 mg tablet 4 mg PO TID PRN Muscle Pain 02/25/23 02/25/23 Unknown History Allergies Allergy/AdvReac Type Severity Reaction Status Date / Time codeine Allergy na Verified 01/28/23 14:37 Iodinated Contrast Media Allergy ALGY-Anaphy Verified 01/28/23 14:37 laxis midazolam [From Versed] Allergy na Verified 01/28/23 14:37 pregabalin [From Lyrica] Allergy na Verified 01/28/23 14:37 Current Medications Generic Name Dose Route Start Last Admin Trade Name Ervinq PRN Reason Stop Dose Admin Acetaminophen 500 mg 02/25/23 17:26 02/26/23 08:28 Acetaminophen 500 Mg Tablet PO 500 mg Q4H PRN Administration fever Hydrocodone Bitart/Acetaminophen 1 tab 02/26/23 12:54 02/26/23 13:01 Hydrocodone-Acetaminophen 7.5-325 Mg Tablet PO 1 tab Q8H PRN Administration MODERATE PAIN Atorvastatin Calcium 40 mg 02/26/23 09:00 02/26/23 08:28 Atorvastatin 40 Mg Tablet PO 40 mg DAILY JAN Administration Heparin Sodium (Porcine) 5,000 unit 02/25/23 18:00 02/26/23 05:37 Heparin 5,000 Unit/Ml Inj 1 Ml SUBCUT 5,000 unit Q12H JAN Administration Non-Formulary 0 each 02/26/23 09:00 02/26/23 10:29 Prednisone 5 Mg PO Not Given Tablet DAILY JAN Non-Formulary 0 each 02/25/23 23:15 02/25/23 23:32 Medication PO 1 each Sulfasalazine 500 Mg BEDTIME JAN Administration Tablet Non-Formulary Medication 0 each 02/25/23 23:30 02/25/23 23:32 Non-Formulary Medication PO 1 each BEDTIME JAN Administration Non-Formulary 0 each 02/25/23 23:30 02/25/23 23:42 Medication PO 1 each Gabapentin 300 Mg BEDTIME JAN Administration Pantoprazole Sodium 40 mg 02/26/23 08:00 02/26/23 08:[address] 40 Mg Tablet PO 40 mg BIDWM JAN Administration PFSH Acute PFSH: Medical History COPD (chronic obstructive pulmonary disease) Dysphagia Gastritis GERD (gastroesophageal reflux disease) Hiatal hernia Raynauds disease Scoliosis Surgical History History of hysterectomy 1976 Family History Mother Dementia Denies family history of Diabetes CAD (coronary artery disease) Psychiatric illness Lung disease Cancer Stroke Social History Smoking and tobacco status: current every day smoker cigarettes Packs smoked per day: 1 Years cigarettes smoked: 51 [ Other cigarette details: Started at age 21] Alcohol intake: never Substance/Drug Use: never Lives independently: No Vitals/I&O/Wt Last Vital Signs Temp 98.2 F 02/26/23 11:34 Pulse 80 02/26/23 11:34 Resp 17 02/26/23 11:34 BP 96/54 02/26/23 11:34 Pulse Ox 91 02/26/23 11:34 O2 Del Method Nasal Cannula 02/26/23 08:26 O2 Flow Rate 3 02/26/23 08:26 02/26/23 02/26/23 02/26/23 06:59 14:59 22:59 Intake Total 240 / 240 Balance 240 / 240 Weight last 48 hrs Weight 136 lb 6.4 oz Weight 134 lb Physical Exam Narrative: GENERAL: The patient is alert and oriented times three. Not in any acute distress. HEENT: No significant pallor, icterus or lymphadenopathy.Oral cavity: There are no mucous membrane lesions. NECK: Trachea appears to be central. No masses noted. No JVD or thyromegaly appreciated. RESPIRATORY: Chest is symmetrical. No intercostals muscle retraction or any accessory muscle activation. There is no chest wall tenderness. Breath sounds are heard bilaterally. No rales or rhonchi heard. No evidence of any consolidation. BREASTS: Deferred. HEART: The heart sounds are normal. No S3 or S4. No significant murmurs. No pericardial rub ABDOMEN: No vessel pulsations or distention. No tenderness. No organomegaly appreciated. Bowel sounds are normally heard. : Deferred. RECTAL: Deferred. LYMPHATIC: No lymphadenopathy noted in the neck. EXTREMITIES: No edema or cyanosis. No clubbing. MUSCULOSKELETAL: No acute joint deformities or swelling SKIN: There are no significant rashes or ecchymosis NEUROPSYCHIATRIC: The patient is alert and oriented x3. Appears to be in a good mood. No tremors or rigidity noted. Data 02/26/23 05:27 02/26/23 05:27 Other Labs: Laboratory Last Values WBC 6.6 10^3/uL (4.0-10.0) 02/26/23 05:27 RBC 4.62 10^6/uL (4.1-5.3) 02/26/23 05:27 Hgb 12.7 g/dL (11.5-15.3) 02/26/23 05:27 Hct 42.5 % (37.0-47.0) 02/26/23 05:27 MCV 92.0 fl (81-99) 02/26/23 05:27 MCH 27.5 pg (28.0-34.0) L 02/26/23 05:27 MCHC 29.9 g/dL (30.0-36.0) L 02/26/23 05:27 RDW 19.3 % (12.1-15.1) H 02/26/23 05:27 Plt Count 183 10^3/cmm (130-400) 02/26/23 05:27 MPV 9.2 fL (7.4-10.4) 02/26/23 05:27 Neut % (Auto) 35.7 % 02/26/23 05:27 Lymph % (Auto) 51.7 % 02/26/23 05:27 [place] % (Auto) 10.3 % 02/26/23 05:27 Eos % (Auto) 1.5 % 02/26/23 05:27 Baso % (Auto) 0.6 % 02/26/23 05:27 Neut # (Auto) 2.36 10^3/uL (1.8-7.7) 02/26/23 05:27 Lymph # (Auto) 3.4 10^3/uL (0.8-4.8) 02/26/23 05:27 [place] # (Auto) 0.7 10^3/uL (0.2-0.9) 02/26/23 05:27 Eos # (Auto) 0.1 10^3/uL (0.0-0.8) 02/26/23 05:27 Baso # (Auto) 0.0 10^3/uL (0.0-0.1) 02/26/23 05:27 Nucleated RBC % (auto) 0 % 02/26/23 05:27 Nucleated RBCs # 0.0 /100WBC 02/26/23 05:27 D-Dimer 1.70 ug/mIFEU (0-0.59) H 02/26/23 08:48 Sodium 144 mmol/L (136-145) 02/26/23 05:27 Potassium 3.5 mmol/L (3.5-5.1) 02/26/23 05:27 Chloride 105 mmol/L (98-107) 02/26/23 05:27 Carbon Dioxide 26 mmol/L (22-29) 02/26/23 05:27 Anion Gap 16.5 (5-19) 02/26/23 05:27 BUN 14 mg/dL (8-23) 02/26/23 05:27 Creatinine 0.8 mg/dL (0.5-0.9) 02/26/23 05:27 GFR Calculation 70.9 mL/min (90-130) L 02/26/23 05:27 Glucose 76 mg/dL (65-115) 02/26/23 05:27 Estimat Average Glucose 128 02/25/23 17:56 Hemoglobin A1c 6.1 % (4.0-6.0) H 02/25/23 17:56 Calculated Osmolality 297 mOsm/kg (285-295) H 02/26/23 05:27 Calcium 8.9 mg/dL (8.5-10.5) 02/26/23 05:27 Magnesium 2.0 mg/dL (1.7-2.3) 02/26/23 05:27 Total Bilirubin 0.4 mg/dL (0.15-1.2) 02/25/23 12:09 AST 28 U/L (0-32) 02/25/23 12:09 ALT 17 U/L (0-33) 02/25/23 12:09 Alkaline Phosphatase 89 U/L (35-105) 02/25/23 12:09 Troponin T Baseline 18 ng/L (0-10) H 02/25/23 12:09 Troponin T 120 Minute 15.86 ng/L (0-10) H 02/25/23 14:25 Delta Troponin T -2.14 ABS# (0-10) L 02/25/23 14:25 Troponin T Hi Sens 6Hr 18.87 ng/L (0-10) H 02/25/23 17:56 Troponin T Hi Sens 6Hr Delta 0.87 ng/L (0-12) 02/25/23 17:56 C-Reactive Protein 26.3 mg/L (0.0-4.9) H 02/26/23 05:27 NT-Pro-B Natriuret Pep 7790 pg/mL (0-125) H 02/25/23 12:09 Total Protein 6.7 g/dL (6.6-8.7) 02/25/23 12:09 Albumin 4.3 g/dL (3.5-5.2) 02/25/23 12:09 Globulin 2.4 g/dL (1.3-4.6) 02/25/23 12:09 TSH 1.95 uIU/mL (0.27-4.20) 02/25/23 17:56 Echo: My impression: ?Normal left ventricular size, systolic function and wall ?thickness, with no regional wall motion abnormalities. Grade ?I/IV diastolic dysfunction (abnormal relaxation filling ?pattern), normal to mildly elevated filling pressures. Left ?ventricular ejection fraction is estimated at 55 %. Flattened ?septum in systole consistent with right ventricle pressure ?overload. ?Moderately increased right ventricular size. Moderately ?decreased right ventricular systolic function. Severe pulmonary ?hypertension, RVSP 74 mmHg. ?Moderately increased right atrial size. ?Mildly increased left atrial size. ?Structurally normal mitral valve. Trace mitral valve ?regurgitation. ?Structurally normal tricuspid valve. [id number] ?tricuspid valve regurgitation. ?Pulmonic valve not well visualized. Moderate pulmonary valve ?regurgitation. ?The inferior vena cava does not collapse normally with ?respiration.? Right atrial pressure 15 mmHg. ?From 05/14/2021, the right heart enlargement, tricuspid and ?pulmonic regurgitation and pulmonary hypertension are new. CT Chest: My impression: CT of the chest without contrast 1.? No acute chest findings. 2.? Advanced chronic emphysematous changes unchanged from previous. 3.? No acute pulmonary infiltrates. 4.? Small esophageal hiatal hernia. EKG 1: My Interpretation: Normal sinus rhythm. Heart rate of 88 bpm features of right ventricular hypertrophy and RV strain. ST-T changes in the anterolateral leads and inferior leads, cannot exclude ischemia. Right axis deviation A&P Assessment and plan (1) Pulmonary arterial hypertension: Patient seems to have precapillary pulmonary hypertension, possibly Group 1. Because of the COPD, she may have a group 3 component as well. (2) Right heart failure: Patient has features of severe pulmonary hypertension, moderate right ventricular dysfunction and right ventricular strain based on the echocardiogram and the EKG. (3) Elevated brain natriuretic peptide (BNP) level: She has significant elevation of the BNP in the 7000 range, putting her at a high risk category (4) Nocturnal hypoxemia: Oxygenation seems to be appropriate during the daytime she is currently on 3 L of oxygen by nasal cannula (5) COPD (chronic obstructive pulmonary disease): Patient has history of reactive airway disease and she has some ongoing smoking abuse. She may have a group 3 component for the pulmonary hypertension. (6) Left ventricular diastolic dysfunction: Patient may have a grade 1 diastolic dysfunction. But it is not convincing. She never had any hypertension. Her LV ejection fraction is normal. The left atrium may be a problem to normal size. The tissue Doppler examination was unremarkable for diastolic dysfunction. Plan Patient currently has severe pulmonary hypertension with features of right ventricular failure. Most likely she may have precapillary Group 1 hypertension, possibly from connective tissue disease. Her systemic blood pressure is low. She carries a high risk. To better evaluate the hemodynamics, it might be appropriate to do a right heart catheterization. Right and left heart catheterization with coronary angiogram may be more appropriate. However the patient is reluctant to go for coronary angiogram because of the history of dye allergy. She does not want to take any chances, even though I discussed about premedication with steroids. I may hold off on a medication changes at this time. The procedure was explained to the patient in detail with the risk and benefits. The risk of bleeding, vascular injury, infection, and other concomitant complications were discussed which the patient understood well and consented to proceed. Coding Level of Care Code Acute Code for Chg Fwd Diagnoses Pulmonary arterial hypertension I27.21 Right heart failure I50.810 Elevated brain natriuretic peptide (BNP) level R79.89 Nocturnal hypoxemia G47.34 COPD (chronic obstructive pulmonary disease) J44.9 Left ventricular diastolic dysfunction I51.9 Time Spent (min) 70
[2023-02-26 20:00] VITALS: BP 99/57; PULSE 80; RESP 18; TEMP 36.5; O2SAT 92
[2023-02-26] MEDS: aspirin 325 mg Tablet PO (20:43)
[2023-02-26] MEDS: NON-FORMULARY MEDICATION PO (20:44)
[2023-02-27] VITALS (12 sets, daily range): BP systolic 96–125; BP diastolic 56–74; PULSE 76–97; RESP 16–20; TEMP 36.6–36.9; O2SAT 90–95
[2023-02-27] MEDS: heparin 5,000 unit/mL INJ 1 mL 5000 UNIT SUBCUT ×2 (05:02→17:08)
[2023-02-27] MEDS: sodium chloride 0.9% 1,000 ML 50 ML IV (05:03)
[2023-02-27 06:16] LABS: Blood Urea Nitrogen 14 mg/dL (8-23); Calcium 9.1 mg/dL (8.5-10.5); Carbon Dioxide 28 mmol/L (22-29); Chloride 102 mmol/L (98-107); Glomerular Filtration Rate 82.7 mL/min (90-130); Glucose 83 mg/dL (65-115); Osmolality Calculated 294 mOsm/kg (285-295); Sodium 142 mmol/L (136-145)
[2023-02-27 06:23] LABS: Anion Gap 15.6 (5-19); Potassium 3.6 mmol/L (3.5-5.1)
[2023-02-27] MEDS: FUROsemide 10 mg/mL SDV 4mL 40 MG IVP (08:28)
[2023-02-27] MEDS: pantoprazole DR 40 mg Tablet PO ×2 (08:28→17:08)
[2023-02-27] MEDS: atorvastatin 40 mg Tablet PO (08:28)
--- NOTE | 2023-02-27 09:07 | P.PN_ITS ---
Subjective Subjective: The patient is feeling okay. Her shortness of breath is improved. She is still hypoxic with oxygen saturation in the 80s on room air. No fever or chills. Medications: Medication Review Details: Current Medications Acetaminophen (Acetaminophen 500 Mg Tablet) 500 mg PO Q4H PRN PRN Reason: fever Last Admin: 02/26/23 08:28 Dose: 500 mg Hydrocodone Bitart/Acetaminophen (Hydrocodone-Acetaminophen 7.5-325 Mg Tablet) 1 tab PO Q8H PRN PRN Reason: MODERATE PAIN Last Admin: 02/26/23 20:47 Dose: 1 tab Albuterol/Ipratropium (Ipratropium-Albuterol 3 Ml Neb) 3 ml INHALATION Q6H PRN PRN Reason: SHORTNESS OF BREATH Atorvastatin Calcium (Atorvastatin 40 Mg Tablet) 40 mg PO DAILY [facility] Last Admin: 02/27/23 08:28 Dose: 40 mg Furosemide (Furosemide 10 Mg/Ml Sdv 4ml) 40 mg IVP Q24H JAN Last Admin: 02/27/23 08:28 Dose: 40 mg Heparin Sodium (Porcine) (Heparin 5,000 Unit/Ml Inj 1 Ml) 5,000 unit SUBCUT Q12H JAN Last Admin: 02/27/23 05:02 Dose: 5,000 unit Sodium Chloride (Sodium Chloride 0.9%) 1,000 mls @ 50 mls/hr IV .Q20H ONE Stop: 02/27/23 16:08 Last Admin: 02/27/23 05:03 Dose: 50 mls/hr Non-Formulary Medication Cyclobenzaprine 10 Mg Tablet 0 each PO TID PRN PRN Reason: muscle spasm Non-Formulary Prednisone 5 Mg Tablet 0 each PO DAILY [facility] Last Admin: 02/27/23 08:39 Dose: Not Given Non-Formulary Medication Buspirone 5 Mg Tablet 0 each PO BID PRN PRN Reason: Anxiety Non-Formulary Medication Sulfasalazine 500 Mg Tablet 0 each PO BEDTIME [facility] Last Admin: 02/26/23 20:44 Dose: 1 each Non-Formulary Medication (Non-Formulary Medication) 0 each PO BEDTIME JAN Last Admin: 02/26/23 20:44 Dose: 1 each Non-Formulary Medication Gabapentin 300 Mg 0 each PO BEDTIME [facility] Last Admin: 02/26/23 20:43 Dose: 1 each Ondansetron HCl (Ondansetron 2 Mg/Ml Sdv 2 Ml) 4 mg IVP Q6H PRN PRN Reason: NAUSEA AND VOMITING Pantoprazole Sodium (Pantoprazole Dr 40 Mg Tablet) 40 mg PO BIDWM [facility] Last Admin: 02/27/23 08:28 Dose: 40 mg Vitals/I&O/Wt Last Vital Signs Temp 98 F 02/27/23 08:31 Pulse 80 02/27/23 08:31 Resp 18 02/27/23 08:31 BP 125/74 02/27/23 08:31 Pulse Ox 95 02/27/23 08:31 O2 Del Method Room Air 02/27/23 08:31 O2 Flow Rate 5 02/27/23 01:18 02/26/23 02/27/23 02/27/23 22:59 06:59 14:59 Intake Total 240 / 480 Output Total 350 / 350 600 / 950 Balance -110 / 130 -600 / -470 Weight last 48 hrs Weight 136 lb 6.4 oz Weight 134 lb Physical Exam Narrative: GENERAL: The patient is alert and oriented times three. Not in any acute distress. HEENT: No significant pallor, icterus or lymphadenopathy.Oral cavity: There are no mucous membrane lesions. NECK: Trachea appears to be central. No masses noted. No JVD or thyromegaly appreciated. RESPIRATORY: Chest is symmetrical. No intercostals muscle retraction or any accessory muscle activation. There is no chest wall tenderness. Breath sounds are heard bilaterally. No rales or rhonchi heard. No evidence of any consolidation. BREASTS: Deferred. HEART: The heart sounds are normal. No S3 or S4. Systolic murmur grade 3/6 in the left sternal border. No diastolic murmurs. No pericardial rub ABDOMEN: No vessel pulsations or distention. No tenderness. No organomegaly appreciated. Bowel sounds are normally heard. : Deferred. RECTAL: Deferred. LYMPHATIC: No lymphadenopathy noted in the neck. EXTREMITIES: No edema or cyanosis. No clubbing. MUSCULOSKELETAL: No acute joint deformities or swelling SKIN: There are no significant rashes or ecchymosis NEUROPSYCHIATRIC: The patient is alert and oriented x3. Appears to be in a good mood. No tremors or rigidity noted. Data 02/26/23 05:27 02/27/23 05:17 Other Labs: Laboratory Last Values WBC 6.6 10^3/uL (4.0-10.0) 02/26/23 05:27 RBC 4.62 10^6/uL (4.1-5.3) 02/26/23 05:27 Hgb 12.7 g/dL (11.5-15.3) 02/26/23 05:27 Hct 42.5 % (37.0-47.0) 02/26/23 05:27 MCV 92.0 fl (81-99) 02/26/23 05:27 MCH 27.5 pg (28.0-34.0) L 02/26/23 05:27 MCHC 29.9 g/dL (30.0-36.0) L 02/26/23 05:27 RDW 19.3 % (12.1-15.1) H 02/26/23 05:27 Plt Count 183 10^3/cmm (130-400) 02/26/23 05:27 MPV 9.2 fL (7.4-10.4) 02/26/23 05:27 Neut % (Auto) 35.7 % 02/26/23 05:27 Lymph % (Auto) 51.7 % 02/26/23 05:27 [place] % (Auto) 10.3 % 02/26/23 05:27 Eos % (Auto) 1.5 % 02/26/23 05:27 Baso % (Auto) 0.6 % 02/26/23 05:27 Neut # (Auto) 2.36 10^3/uL (1.8-7.7) 02/26/23 05:27 Lymph # (Auto) 3.4 10^3/uL (0.8-4.8) 02/26/23 05:27 [place] # (Auto) 0.7 10^3/uL (0.2-0.9) 02/26/23 05:27 Eos # (Auto) 0.1 10^3/uL (0.0-0.8) 02/26/23 05:27 Baso # (Auto) 0.0 10^3/uL (0.0-0.1) 02/26/23 05:27 Nucleated RBC % (auto) 0 % 02/26/23 05:27 Nucleated RBCs # 0.0 /100WBC 02/26/23 05:27 D-Dimer 1.70 ug/mIFEU (0-0.59) H 02/26/23 08:48 Sodium 142 mmol/L (136-145) 02/27/23 05:17 Potassium 3.6 mmol/L (3.5-5.1) 02/27/23 05:17 Chloride 102 mmol/L (98-107) 02/27/23 05:17 Carbon Dioxide 28 mmol/L (22-29) 02/27/23 05:17 Anion Gap 15.6 (5-19) 02/27/23 05:17 BUN 14 mg/dL (8-23) 02/27/23 05:17 Creatinine 0.7 mg/dL (0.5-0.9) 02/27/23 05:17 GFR Calculation 82.7 mL/min (90-130) L 02/27/23 05:17 Glucose 83 mg/dL (65-115) 02/27/23 05:17 Estimat Average Glucose 128 02/25/23 17:56 Hemoglobin A1c 6.1 % (4.0-6.0) H 02/25/23 17:56 Calculated Osmolality 294 mOsm/kg (285-295) 02/27/23 05:17 Calcium 9.1 mg/dL (8.5-10.5) 02/27/23 05:17 Magnesium 2.0 mg/dL (1.7-2.3) 02/26/23 05:27 Total Bilirubin 0.4 mg/dL (0.15-1.2) 02/25/23 12:09 AST 28 U/L (0-32) 02/25/23 12:09 ALT 17 U/L (0-33) 02/25/23 12:09 Alkaline Phosphatase 89 U/L (35-105) 02/25/23 12:09 Troponin T Baseline 18 ng/L (0-10) H 02/25/23 12:09 Troponin T 120 Minute 15.86 ng/L (0-10) H 02/25/23 14:25 Delta Troponin T -2.14 ABS# (0-10) L 02/25/23 14:25 Troponin T Hi Sens 6Hr 18.87 ng/L (0-10) H 02/25/23 17:56 Troponin T Hi Sens 6Hr Delta 0.87 ng/L (0-12) 02/25/23 17:56 C-Reactive Protein 26.3 mg/L (0.0-4.9) H 02/26/23 05:27 NT-Pro-B Natriuret Pep 7790 pg/mL (0-125) H 02/25/23 12:09 Total Protein 6.7 g/dL (6.6-8.7) 02/25/23 12:09 Albumin 4.3 g/dL (3.5-5.2) 02/25/23 12:09 Globulin 2.4 g/dL (1.3-4.6) 02/25/23 12:09 TSH 1.95 uIU/mL (0.27-4.20) 02/25/23 17:56 A&P Assessment and plan (1) Pulmonary arterial hypertension: Patient seems to have precapillary pulmonary hypertension, possibly Group 1. Because of the COPD, she may have a group 3 component as well. (2) Right heart failure: Patient has features of severe pulmonary hypertension, moderate right ventricular dysfunction and right ventricular strain based on the echocardiogram and the EKG. (3) Elevated brain natriuretic peptide (BNP) level: She has significant elevation of the BNP in the 7000 range, putting her at a high risk category (4) Nocturnal hypoxemia: In room air, the PO2 is in the 80s. With the 2 L of oxygen by nasal cannula, it goes up to 91. (5) COPD (chronic obstructive pulmonary disease): Patient has history of reactive airway disease and she has some ongoing smoking abuse. She may have a group 3 component for the pulmonary hypertension. (6) Left ventricular diastolic dysfunction: Patient may have a grade 1 diastolic dysfunction. But it is not convincing. S he never had any hypertension. Her LV ejection fraction is normal. The left atrium appears to be in the upper limit of normal size. The tissue Doppler examination was unremarkable for diastolic dysfunction. Plan Patient currently has severe pulmonary hypertension with features of right ventricular failure. Most likely she may have precapillary Group 1 hypertension, possibly from connective tissue disease. Her systemic blood pressure is low. She carries a high risk. To better evaluate the hemodynamics, it might be appropriate to do a right heart catheterization. The procedure was once again discussed with the patient with risks and benefits. She understood this well and consented to proceed. Scheduled for the procedure this morning. Based on the results, further recommendations will be made Attestations Medical Necessity Statement*: Patient requires continued hospital stay for close monitoring and further management Coding Level of Care Code 32475 Diagnoses Pulmonary arterial hypertension I27.21 Right heart failure I50.810 Elevated brain natriuretic peptide (BNP) level R79.89 Nocturnal hypoxemia G47.34 COPD (chronic obstructive pulmonary disease) J44.9 Left ventricular diastolic dysfunction I51.9
--- NOTE | 2023-02-27 09:12 | XACV_ITS ---
Wt: 62 kg BSA: 1.65 m2 Gender: Female : 1950 Any Known Allergies: Other Exam Priority: Routine Procedure(s): Procedure Description: Diagnostic procedure Procedure Description: Right Heart Catheterization Diagnostic Cath Status: Urgent Conclusions 1. The right heart catheterization was performed through the right femoral vein. 2. The right atrial pressure was 5. The RV pressure was 60/-4 and the PA pressure was 61/21. The mean PA pressure was 33 mmHg. The pulmonary capillary wedge pressure was 4. Cardiac output by Laura was 4.0 with an index of 2.0. Pulmonary vascular resistance was calculated to be 7.25 Page unit(580 dynes per second per square centimeter). 3. The oxygen saturation in the inferior vena cava was 62, right atrium 57, superior vena cava 60, right ventricle 59, pulmonary artery 55 and radial artery 79. Recommendations * The above features are consistent with precapillary pulmonary hypertension. Diagnostic RX Recommendation: other cardiac therapy w/o CABG/PCI Pressures Phase:Rest RV : 60 / -4 / 2 @ 11:45:00 AM PA : 61 / 21 ( 33 ) @ 11:38:00 AM RA : a wave = 6 v wave = 6 mean = 5 @ 11:49:00 AM PCW : a wave = 5 v wave = 6 mean = 4 @ 11:43:00 AM O2 Content Phase:Rest PA : O2 Content O2: 54.5 @ 11:38:00 AM Saturations Phase:Rest AO : 79 @ 11:49:00 AM RA : 57 @ 11:45:00 AM RV : 59 @ 11:43:00 AM PA : 55 @ 11:38:00 AM IVC : 62 @ 12:11:00 PM SVC : 60 @ 12:11:00 PM Cardiac Output Phase:Rest Laura : 4 @ 11:17:12 AM Laura Cardiac Index: 2 @ 11:17:12 AM Flow Phase:Rest Qp : 4 @ 11:17:12 AM Qs : 5 @ 11:17:12 AM Clinical Evaluation EBL: 5mL-10mL Procedural Details Pre-Procedure Time Out. Identified patient by full name and date of as verbalized by the patient/guarantor. Does the consent match the physician's order: Yes. Accurate & Complete Informed Consent: Yes. Inpatient/Outpatient History & Physical on Chart: Yes. If H&P is completed, is and addenduem needed: No; If yes, is the addendum complete: N/A. Visualize and Verify Site with Patient/Guarantor: N/A. Relevant Radiology Images available: N/A. Pre-op teaching completed and patient verbalized understanding. The risks, benefits, and alternatives of sedation and/or procedure were discussed by physician. The patient agrees to continue. Procedure started. Correct patient, site and procedure confirmed by cath team. PERRLA. Strong, equal hand machine sign writer bilaterally. Lungs clear x 5 lobes. IV Site on Arrival: 20 gauge in the left forearm. IV Site on Arrival: 22 gauge in the left forearm. IV Fluids: 0.9% NaCl at KVO. 200 mL infused prior to bundle tier and labeler. right brachial was prepped with chloroprep then draped in the usual sterile fashion. Baseline sample Acquired. HR: 71 BPM. Oxygen started at 2liters/min via nasal canula. Physician arrived. Physician scrubbed in. Immediate Pre-Procedure Time Out. Correct Patient: Yes; Correct Procedure: Yes; Correct Site: Yes; Correct Patient Position: Yes; Correct Supplies: Yes; Dried Flammable Prep: Yes; Blood Products Available: N/A;. Lidocaine 1% infiltrated to the right groin. Lidocaine 1% infiltrated to the right groin. Venous access obtained with a micropuncture set. [place] MON catheter inserted. [place] out. Pressure measurements obtained. ABG drawn and sent with respiratory therapy. Physician scrubbed out. A Manual Compression was successful obtaining hemostatsis at the Right Femoral vein insertion site. Sheath(s) sutured into position with 2-0 silk and sterile 4x4's and Op-site applied over the site. No oozing or signs and symptoms of hematoma noted. Post Procedure: Pulses reassessed and unchanged. PERRLA. Strong, equal hand machine sign writer bilaterally. No VTE prophylaxis required. Medication's Wasted: Other = fentanyl 100 mcg. Medication's Wasted: Heparin = 1000 units. Total IV fluids: 150 mL. Complications: none. Estimated blood loss: 5mL-10mL. Responsiveness - Normal response to verbal stimuli; alert and oriented, PERRLA. Airway - Unaffected, no intervention required; spontaneous ventilation. Circulation: W/N/L, pulses unchanged. Nausea/Vomiting: No. Procedure completed. Patient transferred by bed to [facility]. Vital chart was stopped. Access Site Site: Right Femoral vein Sheath Size: 6 Fr Hemostasis Method: Manual Compression Hemostasis Success: Successful I, the attending physician, have reviewed and verified all procedure medications. Yes, all medications given per verbal order History/Risk Factors Hypertension: No Dyslipidemia: Yes Peripheral Arterial Disease (PAD): No Myocardial Infarction (ID): No Obesity: No Renal Disease: No Tobacco Use: Current/Recent(w/in 1 year) Prior Interventions PCI: No CABG: No Valve Surgery: No Report Signatures Finalized by Dr Fidencio Mosher MD [facility] on 02/27/2023 03:53 PM
[2023-02-27] MEDS: diphenhydrAMINE 50 mg Capsule PO (09:48)
--- NOTE | 2023-02-27 10:15 | W.PM.OPSUD ---
Surgery/Procedure H&P Update DATE OF PROCEDURE: February 27, 2023 DATE H&P PERFORMED: 02/26/23 H&P UPDATE INFORMATION: I have reviewed H&P completed within last 30 days, I have examined patient prior to procedure and No changes to prior documentation PREOP DIAGNOSIS: Severe Pul;monary HTN, right heart failure PRIMARY INDICATION FOR PROCEDURE: Right heart failure PLANNED PROCEDURE: Operation Date: 02/27/23 10:00 Proposed Procedures p Cardiac Catheterization(Right) - Fidencio Mosher MD PATIENT REASSESSED PRIOR TO SEDATION, WITH NO CHANGE NOTED: Yes PHYSICAL EXAM: alert, oriented x 3, clear to auscultation bilaterally and regular rate & rhythm AIRWAY EVAL/ANESTHESIA PLAN: normal airway, see other exam findings, ASA III, Monitored Anesthesia, Local Anesthesia, Risks, benefits & alternatives of sedation and/or procedure discussed and Patient agrees to continue as planned
[2023-02-27 11:23] LABS: Blood Gas Operator Identificat PA; Blood Gas Sample Site Not specified; Blood Gas Sample Type Not specified; HGB O2 Sat 52.9 % (95-100); Methemoglobin 0.9 % (0.4-1.5); Oxygen Device ROOM AIR; Total Hemoglobin 14.7 g/dL (12-16)
[2023-02-27 11:24] LABS: Arterial Blood Gas Hematocrit 45.2 % (37-47); Blood Gas Operator Identificat RV; Blood Gas Sample Site Not specified; Blood Gas Sample Type Not specified; HGB O2 Sat 57.4 % (95-100); Methemoglobin 0.8 % (0.4-1.5); Oxygen Device ROOM AIR; Total Hemoglobin 14.7 g/dL (12-16)
[2023-02-27 11:25] LABS: Alveolar-Arterial Oxygen Gradi 7.1 mmHg (5-10); Arterial Blood Gas Hematocrit 40.4 % (37-47); Arterial Blood Gas Hematocrit 44.7 % (37-47); Arterial Blood Gas Hematocrit 45.2 % (37-47); Arterial Blood Gas Hematocrit 46.5 % (37-47); Blood Gas Operator Identificat AMH; Blood Gas Operator Identificat IVC; Blood Gas Operator Identificat RA; Blood Gas Operator Identificat SVC; Blood Gas Sample Site Brachial, right; Blood Gas Sample Site Not specified; Blood Gas Sample Type Arterial; Blood Gas Sample Type Not specified; Carboxyhemoglobin 2.1 %THgb (0.4-20.1); HGB O2 Sat 55.3 % (95-100); HGB O2 Sat 58.5 % (95-100); HGB O2 Sat 60.3 % (95-100); HGB O2 Sat 76.7 % (95-100); Methemoglobin 0.6 % (0.4-1.5); Methemoglobin 0.7 % (0.4-1.5); Oxygen Device ROOM AIR; Total Hemoglobin 13.2 g/dL (12-16); Total Hemoglobin 14.6 g/dL (12-16); Total Hemoglobin 14.7 g/dL (12-16); Total Hemoglobin 15.2 g/dL (12-16)
[2023-02-27 11:28] LABS: Oxygen Device room air
[2023-02-27] MEDS: HYDROcodone-acetaminophen 7.5-325 mg Tablet 1 TAB PO ×2 (11:51→20:31)
--- NOTE | 2023-02-27 14:43 | PC.NURSE ---
patient completed 3hr bedrest. patient ambulated to the bathroom. Site checked prior to, and after ambulation and remains clean, dry, and intact.
--- NOTE | 2023-02-27 15:14 | PM.PN ---
Subjective Subjective: Patient was seen in the cardiac catheterization suite, after her right heart cath, she denies any chest pain, no palpitations, no shortness of breath, spoke to cardiology, will switch to p.o. Lasix, she is receiving gentle IV hydration Vitals/I&O/Wt Last Vital Signs Temp 98.1 F 02/27/23 12:30 Pulse 88 02/27/23 14:00 Resp 18 02/27/23 12:30 BP 113/59 02/27/23 12:30 Pulse Ox 94 02/27/23 12:30 O2 Del Method Nasal Cannula 02/27/23 12:30 O2 Flow Rate 2 02/27/23 08:00 02/27/23 02/27/23 02/27/23 06:59 14:59 22:59 Intake Total 120 / 120 Output Total 600 / 950 Balance -600 / -470 120 / 120 Weight last 48 hrs Weight 61.87 kg Physical Exam Const: COMMON NORMALS: no acute distress and patient oriented x3 Resp: COMMON NORMALS: normal respiratory effort, No retractions, No use of accessory muscles and clear to auscultation bilaterally AUSCULTATION: clear to auscultation bilaterally Cardio: COMMON NORMALS: regular rate, regular rhythm, S1 normal heart sound present and S2 normal heart sound present RATE: regular rate RHYTHM: regular rhythm HEART SOUNDS: S1 normal heart sound present and S2 normal heart sound present GI: COMMON NORMALS: Normal to inspection, nondistended, normoactive bowel sounds present and non-tender Extremity: COMMON NORMALS: no clubbing, cyanosis or edema, no calf tenderness and no pedal edema Neuro: COMMON NORMALS: patient oriented x3 Psych: COMMON NORMALS: mental status grossly normal Data 02/26/23 05:27 02/27/23 05:17 A&P Assessment and plan (1) Pulmonary hypertension: (2) New onset of congestive heart failure: (3) Congestive heart failure: (4) Hypoxia: (5) CREST syndrome: (6) COPD (chronic obstructive pulmonary disease): (7) Nocturnal hypoxemia: Plan New onset heart failure Right-sided heart failure with significant right ventricle overload with septal deviation Severe pulm hypertension likely due to underlying crest syndrome She will need pulmonary hypertension clinic follow-up Status post right heart cath, will follow-up results Hold off on diuresis for today, as she appears dry, switch to p.o. Lasix, received fluids Monitor urine output She is full code Cardiac diet Acute hypoxia related to CHF Currently on oxygen therapy, wean Anticipating discharge in next 24 hours High D-dimer: VQ scan, low probability of pulmonary embolism Nocturnal hypoxemia: We will need sleep study referral at the time of discharge Overnight study conducted Spoke to nursing staff Spoke to cardiology Plan for today, monitor respiratory status closely, hold off on diuresis therapy for today, switch to p.o. Lasix we will repeat blood work Attestations Medical Necessity Statement*: Patient requires hospitalization for new onset heart failure Diagnoses Pulmonary hypertension I27.20 New onset of congestive heart failure I50.9 Congestive heart failure I50.9 Hypoxia R09.02 CREST syndrome M34.1 COPD (chronic obstructive pulmonary disease) J44.9 Nocturnal hypoxemia G47.34
[2023-02-27] MEDS: NON-FORMULARY MEDICATION PO (20:32)
[2023-02-28 03:26] VITALS: BP 116/68; PULSE 76; RESP 19; TEMP 36.6; O2SAT 95
[2023-02-28 05:22] LABS: Basophils % 0.5 %; Eosinophils # 0.2 10^3/uL (0.0-0.8); Eosinophils % 2.1 %; Hematocrit 48.4 % (37.0-47.0); Hemoglobin 14.6 g/dL (11.5-15.3); Lymphocytes # 2.9 10^3/uL (0.8-4.8); Lymphocytes % 37.4 %; Mean Corpuscular HGB Conc 30.2 g/dL (30.0-36.0); Mean Corpuscular Hemoglobin 27.5 pg (28.0-34.0); Mean Corpuscular Volume 91.1 fl (81-99); Mean Platelet Volume 9.2 fL (7.4-10.4); Monocytes % 12.8 %; Neutrophils # 3.66 10^3/uL (1.8-7.7); Neutrophils % 46.9 %; Nucleated Red Blood Cells % 0 %; Platelet Count 206 10^3/cmm (130-400); Red Blood Count 5.31 10^6/uL (4.1-5.3); White Blood Count 7.8 10^3/uL (4.0-10.0)
[2023-02-28] MEDS: heparin 5,000 unit/mL INJ 1 mL 5000 UNIT SUBCUT (05:39)
[2023-02-28 05:47] LABS: Anion Gap 15.7 (5-19); Blood Urea Nitrogen 17 mg/dL (8-23); Calcium 9.1 mg/dL (8.5-10.5); Carbon Dioxide 30 mmol/L (22-29); Chloride 100 mmol/L (98-107); Glomerular Filtration Rate 70.9 mL/min (90-130); Glucose 86 mg/dL (65-115); Osmolality Calculated 295 mOsm/kg (285-295); Potassium 3.7 mmol/L (3.5-5.1); Sodium 142 mmol/L (136-145)
[2023-02-28 06:41] VITALS: PULSE 81; RESP 18; O2SAT 95
[2023-02-28] MEDS: FUROsemide 40 mg Tablet PO (08:36)
[2023-02-28] MEDS: pantoprazole DR 40 mg Tablet PO (08:36)
[2023-02-28] MEDS: atorvastatin 40 mg Tablet PO (08:36)
[2023-02-28] MEDS: HYDROcodone-acetaminophen 7.5-325 mg Tablet 1 TAB PO (08:38)
--- NOTE | 2023-02-28 09:39 | P.PN_ITS ---
Subjective Subjective: Patient had a right heart catheterization yesterday. She was found to have precapillary pulmonary hypertension, possibly Group 1. Her pulmonary vascular resistance was 7.25 Wood unit. The patient is feeling okay. No chest pain or shortness of breath. No hematoma/ bleeding from the right groin. Medications: Medication Review Details: Current Medications Acetaminophen (Acetaminophen 500 Mg Tablet) 500 mg PO Q4H PRN PRN Reason: fever Last Admin: 02/26/23 08:28 Dose: 500 mg Hydrocodone Bitart/Acetaminophen (Hydrocodone-Acetaminophen 7.5-325 Mg Tablet) 1 tab PO Q8H PRN PRN Reason: MODERATE PAIN Last Admin: 02/28/23 08:38 Dose: 1 tab Al Hydrox/Mg Hydrox/Simethicone (Whsv-Oqw-Dcihhinun-Shimon 30 Ml Udc) 30 ml PO Q15M PRN PRN Reason: INDIGESTION Albuterol/Ipratropium (Ipratropium-Albuterol 3 Ml Neb) 3 ml INHALATION Q6H PRN PRN Reason: SHORTNESS OF BREATH Atorvastatin Calcium (Atorvastatin 40 Mg Tablet) 40 mg PO DAILY [facility] Last Admin: 02/28/23 08:36 Dose: 40 mg Atropine Sulfate (Atropine 1 Mg/Ml Sdv 1 Ml) 0.5 mg IVP PRN PRN PRN Reason: Symptomatic bradycardia Furosemide (Furosemide 40 Mg Tablet) 40 mg PO DAILY@0800 [facility] Last Admin: 02/28/23 08:36 Dose: 40 mg Heparin Sodium (Porcine) (Heparin 5,000 Unit/Ml Inj 1 Ml) 5,000 unit SUBCUT Q12H [facility] Last Admin: 02/28/23 05:39 Dose: 5,000 unit Magnesium Hydroxide (Magnesium Hydroxide 30 Ml Udc) 30 ml PO DAILY PRN PRN Reason: CONSTIPATION Naloxone HCl (Naloxone 0.4 Mg/Ml Sdv) 0.1 mg IVP Q2M PRN PRN Reason: RESPIRATORY RATE < 8/MIN Nitroglycerin (Nitroglycerin 0.4 Mg Sublingual Tablet) 0.4 mg SUBLINGUAL Q5M PRN PRN Reason: CHEST PAIN Non-Formulary Medication Cyclobenzaprine 10 Mg Tablet 0 each PO TID PRN PRN Reason: muscle spasm Non-Formulary Prednisone 5 Mg Tablet 0 each PO DAILY [facility] Last Admin: 02/28/23 08:12 Dose: Not Given Non-Formulary Medication Buspirone 5 Mg Tablet 0 each PO BID PRN PRN Reason: Anxiety Non-Formulary Medication Sulfasalazine 500 Mg Tablet 0 each PO BEDTIME [facility] Last Admin: 02/27/23 20:32 Dose: 1 each Non-Formulary Medication (Non-Formulary Medication) 0 each PO BEDTIME [facility] Last Admin: 02/27/23 20:32 Dose: 1 each Non-Formulary Medication Gabapentin 300 Mg 0 each PO BEDTIME [facility] Last Admin: 02/27/23 20:33 Dose: 1 each Ondansetron HCl (Ondansetron 2 Mg/Ml Sdv 2 Ml) 4 mg IVP Q6H PRN PRN Reason: NAUSEA AND VOMITING Pantoprazole Sodium (Pantoprazole Dr 40 Mg Tablet) 40 mg PO BIDWM [facility] Last Admin: 02/28/23 08:36 Dose: 40 mg Vitals/I&O/Wt Last Vital Signs Temp 97.9 F 02/28/23 03:26 Pulse 81 02/28/23 06:41 Resp 18 02/28/23 06:41 BP 116/68 02/28/23 03:26 Pulse Ox 95 02/28/23 06:41 O2 Del Method Nasal Cannula 02/28/23 06:41 O2 Flow Rate 3.5 02/28/23 08:00 02/27/23 02/28/23 02/28/23 22:59 06:59 14:59 Intake Total 420 / 540 300 / 840 1000 / 1000 Output Total 300 / 300 500 / 800 Balance 120 / 240 -200 / 40 1000 / 1000 Physical Exam Narrative: GENERAL: The patient is alert and oriented times three. Not in any acute distress. HEENT: No significant pallor, icterus or lymphadenopathy.Oral cavity: There are no mucous membrane lesions. NECK: Trachea appears to be central. No masses noted. No JVD or thyromegaly appreciated. RESPIRATORY: Chest is symmetrical. No intercostals muscle retraction or any accessory muscle activation. There is no chest wall tenderness. Breath sounds are heard bilaterally. No rales or rhonchi heard. No evidence of any consolidation. BREASTS: Deferred. HEART: The heart sounds are normal. No S3 or S4. Systolic murmur grade 3/6 in the left sternal border. No diastolic murmurs. No pericardial rub ABDOMEN: No vessel pulsations or distention. No tenderness. No organomegaly appreciated. Bowel sounds are normally heard. : Deferred. RECTAL: Deferred. LYMPHATIC: No lymphadenopathy noted in the neck. EXTREMITIES: No edema or cyanosis. No clubbing. MUSCULOSKELETAL: No acute joint deformities or swelling SKIN: There are no significant rashes or ecchymosis NEUROPSYCHIATRIC: The patient is alert and oriented x3. Appears to be in a good mood. No tremors or rigidity noted. Data 02/28/23 04:40 02/28/23 04:40 Other Labs: Laboratory Last Values WBC 7.8 10^3/uL (4.0-10.0) 02/28/23 04:40 RBC 5.31 10^6/uL (4.1-5.3) H 02/28/23 04:40 Hgb 14.6 g/dL (11.5-15.3) 02/28/23 04:40 Hct 48.4 % (37.0-47.0) H 02/28/23 04:40 MCV 91.1 fl (81-99) 02/28/23 04:40 MCH 27.5 pg (28.0-34.0) L 02/28/23 04:40 MCHC 30.2 g/dL (30.0-36.0) 02/28/23 04:40 RDW 19.0 % (12.1-15.1) H 02/28/23 04:40 Plt Count 206 10^3/cmm (130-400) 02/28/23 04:40 MPV 9.2 fL (7.4-10.4) 02/28/23 04:40 Neut % (Auto) 46.9 % 02/28/23 04:40 Lymph % (Auto) 37.4 % 02/28/23 04:40 Sherman % (Auto) 12.8 % 02/28/23 04:40 Eos % (Auto) 2.1 % 02/28/23 04:40 Baso % (Auto) 0.5 % 02/28/23 04:40 Neut # (Auto) 3.66 10^3/uL (1.8-7.7) 02/28/23 04:40 Lymph # (Auto) 2.9 10^3/uL (0.8-4.8) 02/28/23 04:40 Sherman # (Auto) 1.0 10^3/uL (0.2-0.9) H 02/28/23 04:40 Eos # (Auto) 0.2 10^3/uL (0.0-0.8) 02/28/23 04:40 Baso # (Auto) 0.0 10^3/uL (0.0-0.1) 02/28/23 04:40 Nucleated RBC % (auto) 0 % 02/28/23 04:40 Nucleated RBCs # 0.0 /100WBC 02/28/23 04:40 D-Dimer 1.70 ug/mIFEU (0-0.59) H 02/26/23 08:48 Specimen Type Arterial 02/27/23 10:45 Specimen Type Not specified 02/27/23 10:45 Specimen Type Not specified 02/27/23 10:45 Specimen Type Not specified 02/27/23 10:45 Specimen Type Not specified 02/27/23 10:45 Specimen Type Not specified 02/27/23 10:45 Sample Site Brachial, right 02/27/23 10:45 Sample Site Not specified 02/27/23 10:45 Sample Site Not specified 02/27/23 10:45 Sample Site Not specified 02/27/23 10:45 Sample Site Not specified 02/27/23 10:45 Sample Site Not specified 02/27/23 10:45 Woodrow Test N/a 02/27/23 10:45 Woodrow Test N/a 02/27/23 10:45 Woodrow Test N/a 02/27/23 10:45 Woodrow Test N/a 02/27/23 10:45 Woodrow Test N/a 02/27/23 10:45 Woodrow Test N/a 02/27/23 10:45 A-a O2 Gradient 7.1 mmHg (5-10) 02/27/23 10:45 Hematocrit 40.4 % (37-47) 02/27/23 10:45 Hematocrit 44.7 % (37-47) 02/27/23 10:45 Hematocrit 45.0 % (37-47) 02/27/23 10:45 Hematocrit 45.2 % (37-47) 02/27/23 10:45 Hematocrit 45.2 % (37-47) 02/27/23 10:45 Hematocrit 46.5 % (37-47) 02/27/23 10:45 Hgb O2 Saturation 52.9 % (95-100) L 02/27/23 10:45 Hgb O2 Saturation 55.3 % (95-100) L 02/27/23 10:45 Hgb O2 Saturation 57.4 % (95-100) L 02/27/23 10:45 Hgb O2 Saturation 58.5 % (95-100) L 02/27/23 10:45 Hgb O2 Saturation 60.3 % (95-100) L 02/27/23 10:45 Hgb O2 Saturation 76.7 % (95-100) L 02/27/23 10:45 Carboxyhemoglobin 2.0 %THgb (0.4-20.1) 02/27/23 10:45 Carboxyhemoglobin 2.0 %THgb (0.4-20.1) 02/27/23 10:45 Carboxyhemoglobin 2.0 %THgb (0.4-20.1) 02/27/23 10:45 Carboxyhemoglobin 2.0 %THgb (0.4-20.1) 02/27/23 10:45 Carboxyhemoglobin 2.0 %THgb (0.4-20.1) 02/27/23 10:45 Carboxyhemoglobin 2.1 %THgb (0.4-20.1) 02/27/23 10:45 Methemoglobin 0.6 % (0.4-1.5) 02/27/23 10:45 Methemoglobin 0.7 % (0.4-1.5) 02/27/23 10:45 Methemoglobin 0.7 % (0.4-1.5) 02/27/23 10:45 Methemoglobin 0.7 % (0.4-1.5) 02/27/23 10:45 Methemoglobin 0.8 % (0.4-1.5) 02/27/23 10:45 Methemoglobin 0.9 % (0.4-1.5) 02/27/23 10:45 Total Hemoglobin 13.2 g/dL (12-16) 02/27/23 10:45 Total Hemoglobin 14.6 g/dL (12-16) 02/27/23 10:45 Total Hemoglobin 14.7 g/dL (12-16) 02/27/23 10:45 Total Hemoglobin 14.7 g/dL (12-16) 02/27/23 10:45 Total Hemoglobin 14.7 g/dL (12-16) 02/27/23 10:45 Total Hemoglobin 15.2 g/dL (12-16) 02/27/23 10:45 O2 Delivery Device Room air 02/27/23 10:45 O2 Delivery Device Room air 02/27/23 10:45 O2 Delivery Device Room air 02/27/23 10:45 O2 Delivery Device Room air 02/27/23 10:45 O2 Delivery Device Room air 02/27/23 10:45 O2 Delivery Device room air 02/27/23 10:45 FiO2 21.0 % 02/27/23 10:45 FiO2 21.0 % 02/27/23 10:45 FiO2 21.0 % 02/27/23 10:45 FiO2 21.0 % 02/27/23 10:45 FiO2 21.0 % 02/27/23 10:45 FiO2 21.0 % 02/27/23 10:45 Supervisor Liquefaction ID Amh 02/27/23 10:45 Supervisor Liquefaction ID Ivc 02/27/23 10:45 Supervisor Liquefaction ID Pa 02/27/23 10:45 Supervisor Liquefaction ID Ra 02/27/23 10:45 Supervisor Liquefaction ID Rv 02/27/23 10:45 Supervisor Liquefaction ID Svc 02/27/23 10:45 Sodium 142 mmol/L (136-145) 02/28/23 04:40 Potassium 3.7 mmol/L (3.5-5.1) 02/28/23 04:40 Chloride 100 mmol/L (98-107) 02/28/23 04:40 Carbon Dioxide 30 mmol/L (22-29) H 02/28/23 04:40 Anion Gap 15.7 (5-19) 02/28/23 04:40 BUN 17 mg/dL (8-23) 02/28/23 04:40 Creatinine 0.8 mg/dL (0.5-0.9) 02/28/23 04:40 GFR Calculation 70.9 mL/min (90-130) L 02/28/23 04:40 Glucose 86 mg/dL (65-115) 02/28/23 04:40 Estimat Average Glucose 128 02/25/23 17:56 Hemoglobin A1c 6.1 % (4.0-6.0) H 02/25/23 17:56 Calculated Osmolality 295 mOsm/kg (285-295) 02/28/23 04:40 Calcium 9.1 mg/dL (8.5-10.5) 02/28/23 04:40 Magnesium 2.0 mg/dL (1.7-2.3) 02/26/23 05:27 Total Bilirubin 0.4 mg/dL (0.15-1.2) 02/25/23 12:09 AST 28 U/L (0-32) 02/25/23 12:09 ALT 17 U/L (0-33) 02/25/23 12:09 Alkaline Phosphatase 89 U/L (35-105) 02/25/23 12:09 Troponin T Baseline 18 ng/L (0-10) H 02/25/23 12:09 Troponin T 120 Minute 15.86 ng/L (0-10) H 02/25/23 14:25 Delta Troponin T -2.14 ABS# (0-10) L 02/25/23 14:25 Troponin T Hi Sens 6Hr 18.87 ng/L (0-10) H 02/25/23 17:56 Troponin T Hi Sens 6Hr Delta 0.87 ng/L (0-12) 02/25/23 17:56 C-Reactive Protein 26.3 mg/L (0.0-4.9) H 02/26/23 05:27 NT-Pro-B Natriuret Pep 7790 pg/mL (0-125) H 02/25/23 12:09 Total Protein 6.7 g/dL (6.6-8.7) 02/25/23 12:09 Albumin 4.3 g/dL (3.5-5.2) 02/25/23 12:09 Globulin 2.4 g/dL (1.3-4.6) 02/25/23 12:09 TSH 1.95 uIU/mL (0.27-4.20) 02/25/23 17:56 A&P Assessment and plan (1) Pulmonary arterial hypertension: Patient seems to have precapillary pulmonary hypertension, possibly Group 1. The right heart catheterization from yesterday revealed pulmonary vascular resistance of 7.25 Wood unit. She may benefit from PAH targeted therapy/pulmonary vasodilators. I will be discussing this with the application counselor. This may be started as an outpatient. (2) Right heart failure: Patient has features of severe pulmonary hypertension, moderate right ventricular dysfunction and right ventricular strain based on the echocardiogram and the EKG. (3) Elevated brain natriuretic peptide (BNP) level: She has significant elevation of the BNP in the 7000 range, putting her at a high risk category (4) Nocturnal hypoxemia: In room air, the PO2 is in the 80s. With the 2 L of oxygen by nasal cannula, it goes up to 91. (5) COPD (chronic obstructive pulmonary disease): Patient has history of reactive airway disease and she has some ongoing smoking abuse. She may have a group 3 component for the pulmonary hypertension. (6) Left ventricular diastolic dysfunction: The patient is a pulmonary capillary wedge pressure was 4. She does not seem to have any significant LV diastolic dysfunction. Plan Patient seems to have precapillary pulmonary hypertension. Currently she seems to be stable. Further management as an outpatient. Attestations Medical Necessity Statement*: Pulse discharge home today Coding Level of Care Code 25544 Diagnoses Pulmonary arterial hypertension I27.21 Right heart failure I50.810 Elevated brain natriuretic peptide (BNP) level R79.89 Nocturnal hypoxemia G47.34 COPD (chronic obstructive pulmonary disease) J44.9 Left ventricular diastolic dysfunction I51.9
[2023-02-28 09:48] VITALS: O2SAT 85; O2SAT 94
--- NOTE | 2023-02-28 11:30 | PM.DCS ---
Discharge Providers Date of Admission: 02/27/23 16:37 Date of Discharge: February 28, 2023 Attending Provider at Admission: Jose Juan Andrews MD Attending Provider at Discharge: Angel Allison MD Primary Care Provider: Delroy Jones MD Diagnoses at Discharge Discharge Diagnosis (1) Pulmonary arterial hypertension: Status: Acute (2) Right heart failure: Status: Acute (3) Elevated brain natriuretic peptide (BNP) level: Status: Acute (4) Nocturnal hypoxemia: Status: Acute (5) COPD (chronic obstructive pulmonary disease): Status: Acute (6) Left ventricular diastolic dysfunction: Status: Acute Reason for Visit Reason for Visit: Karen sent for sob/neck problems Hospital Course Hospital Course Gwendolyn Carrington is a 72 year old female with new onset of shortness of breath which started 2 weeks ago she has been noticing fluid overload, shortness of breath orthopnea PND, she is endorsing fluid gain as well, last night when she will went to bed she noticed heaviness in her left side of her neck which she described as heaviness.? She did not experience any chest pain nausea, vomiting recent fever.? She does not carry previous history of coronary disease [place] or CHF in the ER she has been diagnosed with new onset CHF In the ER she was diagnosed with right-sided heart failure, CT neck unremarkable EKG unremarkable troponin with negative delta Echo was done yesterday showed severe pulm hypertension [place] [facility] [place] secondary to new onset chf and pulmonary hypertension. 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 The right heart catheterization was performed through the right femoral vein. ? 2. The right atrial pressure was 5.? The RV pressure was 60/-4 and the PA pressure was 61/21. The mean PA pressure was 33 mmHg. The pulmonary capillary wedge pressure was 4. Cardiac output by Laura was 4.0 with an index of 2.0. Pulmonary vascular resistance was calculated to be 7.25 Page unit(580 dynes per second per square centimeter). ? 3. The oxygen saturation in the inferior vena cava was 62, right atrium 57, superior vena cava 60, right ventricle 59, pulmonary artery 55 and radial artery 79. Recommendations ? * The above features are consistent with precapillary pulmonary hypertension. will discharge on lasix 20mg daily High D-dimer: VQ scan, low probability of pulmonary embolism Nocturnal hypoxemia: follow up with pulmonary for sleep study Physical Exam Const: COMMON NORMALS: no acute distress and patient oriented x3 Resp: COMMON NORMALS: normal respiratory effort, No retractions, No use of accessory muscles and clear to auscultation bilaterally AUSCULTATION: clear to auscultation bilaterally Cardio: COMMON NORMALS: regular rate, regular rhythm, S1 normal heart sound present and S2 normal heart sound present RATE: regular rate RHYTHM: regular rhythm HEART SOUNDS: S1 normal heart sound present and S2 normal heart sound present GI: COMMON NORMALS: Normal to inspection, nondistended, normoactive bowel sounds present and non-tender Extremity: COMMON NORMALS: no pedal edema Neuro: COMMON NORMALS: patient oriented x3 Psych: COMMON NORMALS: mental status grossly normal Discharge Data Studies Completed and Pending Completed Studies During Hospitalization Category Date Time Status CT chest wo con [id number] Stat Cat Scan 02/25/23 13:[address] neck wo con [id number] Stat Cat Scan 02/25/23 13:16 Completed [employer] request for service Routine Exams 02/27/23 09:12 Completed XR chest 1V portable [id number] Routine Exams 02/26/23 12:02 Completed XR chest 1V portable [id number] Stat Exams 02/25/23 11:57 Completed NM pulmonary ventilation and perfusion [NM pul vent and Nuc Med 02/26/23 11:18 Completed perfus* [id number]] Routine Pending at discharge Category Date Time Status ABG Coox Only Routine Lab 02/27/23 10:45 Results ABG Coox Only Routine Lab 02/27/23 10:45 Results ABG Coox Only Routine Lab 02/27/23 10:45 Results ABG Coox Only Routine Lab 02/27/23 10:45 Results ABG Coox Only Routine Lab 02/27/23 10:45 Results Basic Metabolic Panel AM LABS Lab 03/01/23 04:00 Ordered Basic Metabolic Panel AM LABS Lab 03/02/23 04:00 Ordered Complete Blood Count w/Auto AM LABS Lab 03/01/23 04:00 Ordered Complete Blood Count w/Auto AM LABS Lab 03/02/23 04:00 Ordered Radiology Impressions Chest CT 02/25/23 13:16 IMPRESSION: 1. No acute chest findings. 2. Advanced chronic emphysematous changes unchanged from previous. 3. No acute pulmonary infiltrates. 4. Small esophageal hiatal hernia. Neck CT 02/25/23 13:16 IMPRESSION: No suspicious abnormalities deep to the palpable marker LEFT neck. Normal underlying vessels in this location. Pulmonary Perfusion Imaging 02/26/23 11:18 IMPRESSION: 1. Low probability for pulmonary embolus. Chest X-Ray 02/26/23 12:02 Impression: 1. Diffuse interstitial change most consistent with chronic interstitial pneumonia. 2. Atherosclerosis and hyperinflation. Laboratory Results WBC 7.8 10^3/uL (4.0-10.0) 02/28/23 04:40 RBC 5.31 10^6/uL (4.1-5.3) H 02/28/23 04:40 Hgb 14.6 g/dL (11.5-15.3) 02/28/23 04:40 Hct 48.4 % (37.0-47.0) H 02/28/23 04:40 MCV 91.1 fl (81-99) 02/28/23 04:40 MCH 27.5 pg (28.0-34.0) L 02/28/23 04:40 MCHC 30.2 g/dL (30.0-36.0) 02/28/23 04:40 RDW 19.0 % (12.1-15.1) H 02/28/23 04:40 Plt Count 206 10^3/cmm (130-400) 02/28/23 04:40 MPV 9.2 fL (7.4-10.4) 02/28/23 04:40 Neut % (Auto) 46.9 % 02/28/23 04:40 Lymph % (Auto) 37.4 % 02/28/23 04:40 [place] % (Auto) 12.8 % 02/28/23 04:40 Eos % (Auto) 2.1 % 02/28/23 04:40 Baso % (Auto) 0.5 % 02/28/23 04:40 Neut # (Auto) 3.66 10^3/uL (1.8-7.7) 02/28/23 04:40 Lymph # (Auto) 2.9 10^3/uL (0.8-4.8) 02/28/23 04:40 [place] # (Auto) 1.0 10^3/uL (0.2-0.9) H 02/28/23 04:40 Eos # (Auto) 0.2 10^3/uL (0.0-0.8) 02/28/23 04:40 Baso # (Auto) 0.0 10^3/uL (0.0-0.1) 02/28/23 04:40 Nucleated RBC % (auto) 0 % 02/28/23 04:40 Nucleated RBCs # 0.0 /100WBC 02/28/23 04:40 D-Dimer 1.70 ug/mIFEU (0-0.59) H 02/26/23 08:48 Specimen Type Arterial 02/27/23 10:45 Specimen Type Not specified 02/27/23 10:45 Specimen Type Not specified 02/27/23 10:45 Specimen Type Not specified 02/27/23 10:45 Specimen Type Not specified 02/27/23 10:45 Specimen Type Not specified 02/27/23 10:45 Sample Site Brachial, right 02/27/23 10:45 Sample Site Not specified 02/27/23 10:45 Sample Site Not specified 02/27/23 10:45 Sample Site Not specified 02/27/23 10:45 Sample Site Not specified 02/27/23 10:45 Sample Site Not specified 02/27/23 10:45 Woodrow Test N/a 02/27/23 10:45 Woodrow Test N/a 02/27/23 10:45 Woodrow Test N/a 02/27/23 10:45 Woodrow Test N/a 02/27/23 10:45 Woodrow Test N/a 02/27/23 10:45 Woodrow Test N/a 02/27/23 10:45 A-a O2 Gradient 7.1 mmHg (5-10) 02/27/23 10:45 Hematocrit 40.4 % (37-47) 02/27/23 10:45 Hematocrit 44.7 % (37-47) 02/27/23 10:45 Hematocrit 45.0 % (37-47) 02/27/23 10:45 Hematocrit 45.2 % (37-47) 02/27/23 10:45 Hematocrit 45.2 % (37-47) 02/27/23 10:45 Hematocrit 46.5 % (37-47) 02/27/23 10:45 Hgb O2 Saturation 52.9 % (95-100) L 02/27/23 10:45 Hgb O2 Saturation 55.3 % (95-100) L 02/27/23 10:45 Hgb O2 Saturation 57.4 % (95-100) L 02/27/23 10:45 Hgb O2 Saturation 58.5 % (95-100) L 02/27/23 10:45 Hgb O2 Saturation 60.3 % (95-100) L 02/27/23 10:45 Hgb O2 Saturation 76.7 % (95-100) L 02/27/23 10:45 Carboxyhemoglobin 2.0 %THgb (0.4-20.1) 02/27/23 10:45 Carboxyhemoglobin 2.0 %THgb (0.4-20.1) 02/27/23 10:45 Carboxyhemoglobin 2.0 %THgb (0.4-20.1) 02/27/23 10:45 Carboxyhemoglobin 2.0 %THgb (0.4-20.1) 02/27/23 10:45 Carboxyhemoglobin 2.0 %THgb (0.4-20.1) 02/27/23 10:45 Carboxyhemoglobin 2.1 %THgb (0.4-20.1) 02/27/23 10:45 Methemoglobin 0.6 % (0.4-1.5) 02/27/23 10:45 Methemoglobin 0.7 % (0.4-1.5) 02/27/23 10:45 Methemoglobin 0.7 % (0.4-1.5) 02/27/23 10:45 Methemoglobin 0.7 % (0.4-1.5) 02/27/23 10:45 Methemoglobin 0.8 % (0.4-1.5) 02/27/23 10:45 Methemoglobin 0.9 % (0.4-1.5) 02/27/23 10:45 Total Hemoglobin 13.2 g/dL (12-16) 02/27/23 10:45 Total Hemoglobin 14.6 g/dL (12-16) 02/27/23 10:45 Total Hemoglobin 14.7 g/dL (12-16) 02/27/23 10:45 Total Hemoglobin 14.7 g/dL (12-16) 02/27/23 10:45 Total Hemoglobin 14.7 g/dL (12-16) 02/27/23 10:45 Total Hemoglobin 15.2 g/dL (12-16) 02/27/23 10:45 O2 Delivery Device Room air 02/27/23 10:45 O2 Delivery Device Room air 02/27/23 10:45 O2 Delivery Device Room air 02/27/23 10:45 O2 Delivery Device Room air 02/27/23 10:45 O2 Delivery Device Room air 02/27/23 10:45 O2 Delivery Device room air 02/27/23 10:45 FiO2 21.0 % 02/27/23 10:45 FiO2 21.0 % 02/27/23 10:45 FiO2 21.0 % 02/27/23 10:45 FiO2 21.0 % 02/27/23 10:45 FiO2 21.0 % 02/27/23 10:45 FiO2 21.0 % 02/27/23 10:45 Sanforizing Machine Operator ID Amh 02/27/23 10:45 Sanforizing Machine Operator ID Ivc 02/27/23 10:45 Sanforizing Machine Operator ID Pa 02/27/23 10:45 Sanforizing Machine Operator ID Ra 02/27/23 10:45 Sanforizing Machine Operator ID Rv 02/27/23 10:45 Sanforizing Machine Operator ID Svc 02/27/23 10:45 Sodium 142 mmol/L (136-145) 02/28/23 04:40 Potassium 3.7 mmol/L (3.5-5.1) 02/28/23 04:40 Chloride 100 mmol/L (98-107) 02/28/23 04:40 Carbon Dioxide 30 mmol/L (22-29) H 02/28/23 04:40 Anion Gap 15.7 (5-19) 02/28/23 04:40 BUN 17 mg/dL (8-23) 02/28/23 04:40 Creatinine 0.8 mg/dL (0.5-0.9) 02/28/23 04:40 GFR Calculation 70.9 mL/min (90-130) L 02/28/23 04:40 Glucose 86 mg/dL (65-115) 02/28/23 04:40 Estimat Average Glucose 128 02/25/23 17:56 Hemoglobin A1c 6.1 % (4.0-6.0) H 02/25/23 17:56 Calculated Osmolality 295 mOsm/kg (285-295) 02/28/23 04:40 Calcium 9.1 mg/dL (8.5-10.5) 02/28/23 04:40 Magnesium 2.0 mg/dL (1.7-2.3) 02/26/23 05:27 Total Bilirubin 0.4 mg/dL (0.15-1.2) 02/25/23 12:09 AST 28 U/L (0-32) 02/25/23 12:09 ALT 17 U/L (0-33) 02/25/23 12:09 Alkaline Phosphatase 89 U/L (35-105) 02/25/23 12:09 Troponin T Baseline 18 ng/L (0-10) H 02/25/23 12:09 Troponin T 120 Minute 15.86 ng/L (0-10) H 02/25/23 14:25 Delta Troponin T -2.14 ABS# (0-10) L 02/25/23 14:25 Troponin T Hi Sens 6Hr 18.87 ng/L (0-10) H 02/25/23 17:56 Troponin T Hi Sens 6Hr Delta 0.87 ng/L (0-12) 02/25/23 17:56 C-Reactive Protein 26.3 mg/L (0.0-4.9) H 02/26/23 05:27 NT-Pro-B Natriuret Pep 7790 pg/mL (0-125) H 02/25/23 12:09 Total Protein 6.7 g/dL (6.6-8.7) 02/25/23 12:09 Albumin 4.3 g/dL (3.5-5.2) 02/25/23 12:09 Globulin 2.4 g/dL (1.3-4.6) 02/25/23 12:09 TSH 1.95 uIU/mL (0.27-4.20) 02/25/23 17:56 Vitals Last Vital Signs Temp 97.9 F 02/28/23 03:26 Pulse 81 02/28/23 06:41 Resp 18 02/28/23 06:41 BP 116/68 02/28/23 03:26 Pulse Ox 85 L 02/28/23 09:48 O2 Del Method Nasal Cannula 02/28/23 06:41 O2 Flow Rate 4 02/28/23 09:48 Discharge Plan Discharge Patient Disposition: Home Condition: Stable Prescriptions: New furosemide 40 mg Tablet 20 mg PO DAILY@0800 30 Days Qty: 15 0RF Continued Nitro-Bid 2 % ointment 1 inch transdermal BID Rx Instructions: administer 2 doses/day (approx. 6 hrs apart); remove for 10-12 hrs per 24 hours budesonide-formoterol [Symbicort] 80-4.5 mcg/actuation HFA aerosol inhaler 2 puff inhalation BID potassium chloride 10 mEq capsule, extended release 10 meq PO DAILY gabapentin 300 mg capsule 300 mg PO BEDTIME hydrocodone-acetaminophen 7.5-325 mg tablet 1 tab PO Q8H PRN (Reason: Pain) rosuvastatin 40 mg tablet 40 mg PO DAILY buspirone 5 mg tablet 5 mg PO BID PRN (Reason: Anxiety) mirtazapine 15 mg tablet 15 mg PO BEDTIME cholecalciferol (vitamin D3) 50 mcg (2,000 unit) capsule 50 mcg PO DAILY cyclobenzaprine 10 mg tablet 10 mg PO TID PRN (Reason: muscle spasm) Qty: 20 0RF prednisone 5 mg tablet 5 mg PO DAILY Qty: 30 0RF albuterol sulfate 90 mcg/actuation HFA aerosol inhaler 2 puff inhalation Q6H PRN (Reason: Shortness Of Breath) PreserVision AREDS-2 250-90-40-1 mg capsule 1 tab PO BID omeprazole 20 mg capsule,delayed release(DR/EC) 20 mg PO BIDWMEAL Qty: 0 2RF tizanidine 4 mg tablet 4 mg PO TID PRN (Reason: Muscle Pain) sulfasalazine 500 mg Tablet 0.5 g PO BEDTIME Rx Instructions: give with food (meal/snack) Discontinued verapamil 80 mg tablet 80 mg PO BID Discharge Orders: Discharge Order (Routine); Ordered 02/28/23 Ordered By: Angel Allison Other Ambulatory Orders: DME: Oxygen (Order) Location: None Selected Ordered By: Angel Allison Referrals: Delroy Jones MD [Primary Care Provider] - (Please call Wednesday to schedule your follow up appointment.) Wilber Tolentino MD [Physician] - 4-7 days Kalpana Mcgee FNP [Nurse Practitioner] - ([facility] call with your follow up.) Discharge Diet: Cardiac Discharge Activity: Resume usual activity Patient Instructions: Opioid Safety Activity Restrictions/Additional Instructions: - Please use oxygen as prescribed -Please do not smoke with oxygen due to morbidity and mortality associated -Please stop smoking -If you have worsening shortness of breath please go to the emergency room -Follow-up with pulmonary Discharge Attestations Time Spent in Discharge Care*: less than 30 min Quality Metrics Clinical Quality Measures [ No reported AMI, CVA or VTE this stay] Coding Level of Care Code Acute Code for Chg Fwd Diagnoses Pulmonary arterial hypertension I27.21 Right heart failure I50.810 Elevated brain natriuretic peptide (BNP) level R79.89 Nocturnal hypoxemia G47.34 COPD (chronic obstructive pulmonary disease) J44.9 Left ventricular diastolic dysfunction I51.9
--- NOTE | 2023-02-28 14:15 | PC.NURSE ---
IV removed intact. Patient tolerated well. Patient is A&Ox3. Respirations even and non-labored on 4 liters on NC. Reviewed discharge instructions with patient and . Patient and verbalized understating of discharge instructions including to stop Verapamil and how to take her Lasix and follow up appointments. Patient;s home medications were returned and patient signed the home medications sheet. Patient assisted into wheel and pushed to private car.
[2023-02-28 14:32] VITALS: BP 116/68; PULSE 81; RESP 18; TEMP 36.7; O2SAT 95
== END 2023-02-28 14:15 | disposition home or self-care (01) | DRG 287 ==
LOC: ER 15:20 → MEDSURG 15:51
PROVIDERS: Internal Medicine Cardiovascular Disease; Admitting Provider Internal Medicine; Emergency Provider Emergency Medicine; PCP Family Medicine; Visit Provider Family Medicine
PROC: 4A023N6 Measurement of Cardiac Sampling and Pressure, Right Heart, Percutaneous Approach (ICD-10-PCS; principal; 2023-02-27 10:00)
DX: I27.21 Secondary pulmonary arterial hypertension (principal); J44.9 Chronic obstructive pulmonary disease, unspecified; F17.210 Nicotine dependence, cigarettes, uncomplicated; R13.10 Dysphagia, unspecified; I73.00 Raynaud's syndrome without gangrene; K21.9 Gastro-esophageal reflux disease without esophagitis; K44.9 Diaphragmatic hernia without obstruction or gangrene; E78.5 Hyperlipidemia, unspecified; Z91.041 Radiographic dye allergy status; R09.02 Hypoxemia; M34.1 CR(E)ST syndrome; I50.810 Right heart failure, unspecified
CPT/HCPCS: 36415; 36600; 70490; 71045; 71250; 78014; 80048; 80053; 82810; 83036; 83735; 83880; 84443; 84484; 85025; 85378; 86140; 93005; 93451; 94640; 94760; 96372; 99285; A9540; A9567; C1751; C1769; C1894; G0378; J1644; J1940; J3010; J7030; Q0163

== ENCOUNTER → 2023-03-08 09:27 | Outpatient (BNVA) | payer MEDICARE, SELFPAY | PROVIDERS: PCP Family Medicine; Visit Provider Nurse Practitioner Family | DX: I50.9 Heart failure, unspecified (principal); F17.210 Nicotine dependence, cigarettes, uncomplicated; I27.21 Secondary pulmonary arterial hypertension | CPT/HCPCS: 36415; 80048; 83880; 99214 ==

== ENCOUNTER → 2023-04-02 12:18 | Outpatient (BNVA) | payer MEDICARE, SELFPAY | PROVIDERS: PCP Family Medicine; Visit Provider Internal Medicine | DX: M81.0 Age-related osteoporosis without current pathological fracture (principal); M19.012 Primary osteoarthritis, left shoulder; I73.00 Raynaud's syndrome without gangrene; M41.9 Scoliosis, unspecified; K21.9 Gastro-esophageal reflux disease without esophagitis; G58.9 Mononeuropathy, unspecified; M34.1 CR(E)ST syndrome; I27.21 Secondary pulmonary arterial hypertension | CPT/HCPCS: 72100; 73030; 99214 ==

== ENCOUNTER → 2023-04-05 11:08 | Outpatient (BNVA) | payer MEDICARE, SELFPAY | PROVIDERS: PCP Family Medicine; Visit Provider Internal Medicine Pulmonary Disease | DX: R09.02 Hypoxemia (principal); J44.9 Chronic obstructive pulmonary disease, unspecified; F17.219 Nicotine dependence, cigarettes, with unspecified nicotine-induced disorders; I73.00 Raynaud's syndrome without gangrene; I27.21 Secondary pulmonary arterial hypertension; I37.1 Nonrheumatic pulmonary valve insufficiency; I07.1 Rheumatic tricuspid insufficiency; I50.9 Heart failure, unspecified | CPT/HCPCS: 99214 ==

== ENCOUNTER → 2023-04-26 15:04 | Outpatient (BNVA) | payer MEDICARE, SELFPAY | PROVIDERS: PCP Family Medicine; Visit Provider Internal Medicine Pulmonary Disease | DX: R09.02 Hypoxemia (principal); J44.9 Chronic obstructive pulmonary disease, unspecified; F17.219 Nicotine dependence, cigarettes, with unspecified nicotine-induced disorders; I73.00 Raynaud's syndrome without gangrene; I27.21 Secondary pulmonary arterial hypertension; M41.9 Scoliosis, unspecified | CPT/HCPCS: 99214 ==

== ENCOUNTER 2023-05-05 12:51 | Outpatient (CLI) | payer MEDICARE, SELFPAY ==
[2023-05-05 13:24] VITALS: PULSE 82; RESP 18; O2SAT 92
[2023-05-05] MEDS: albuterol 2.5 mg/3 mL Neb INHALATION (13:24)
[2023-05-05 13:29] VITALS: PULSE 81
== END 2023-05-05 12:52 | disposition home or self-care (01) ==
LOC: RT 12:52
PROVIDERS: PCP Family Medicine; Visit Provider Internal Medicine Pulmonary Disease
DX: R06.02 Shortness of breath (principal)
CPT/HCPCS: 94060; 94618; 94729; J7613

== ENCOUNTER → 2023-07-20 15:19 | Outpatient (BNVA) | payer MEDICARE, SELFPAY | PROVIDERS: PCP Family Medicine; Visit Provider Internal Medicine | DX: I27.20 Pulmonary hypertension, unspecified (principal); M81.0 Age-related osteoporosis without current pathological fracture; I73.00 Raynaud's syndrome without gangrene; M41.9 Scoliosis, unspecified; K21.9 Gastro-esophageal reflux disease without esophagitis; G58.9 Mononeuropathy, unspecified; M34.1 CR(E)ST syndrome; I27.21 Secondary pulmonary arterial hypertension | CPT/HCPCS: 99214 ==

== ENCOUNTER 2023-07-28 12:23 | Outpatient (CLI) | payer MEDICARE, SELFPAY ==
[2023-07-28 12:51] LABS: Basophils % 0.3 %; Eosinophils % 0.2 %; Hematocrit 36.4 % (36-47); Lymphocytes # 1.9 10^3/uL (0.8-4.8); Lymphocytes % 21.1 %; Mean Corpuscular HGB Conc 31.9 g/dL (30-55); Mean Corpuscular Hemoglobin 33.4 pg (27-33); Mean Corpuscular Volume 104.9 fl (85-98); Mean Platelet Volume 9.3 fL (7.4-10.4); Monocytes # 0.5 10^3/uL (0.2-0.9); Nucleated Red Blood Cells % 0 %; Platelet Count 229 10^3/cmm (157-399); Red Blood Count 3.47 10^6/uL (3.85-5.65); Red Cell Distribution Width 13.2 % (12.1-15.1); White Blood Count 9.04 10^3/uL (3.29-11.43)
[2023-07-28 13:10] LABS: Alanine Aminotransferase 15 U/L (0-33); Albumin Level 4.5 g/dL (3.5-5.2); Alkaline Phosphatase 70 U/L (35-105); Anion Gap 14.8 (5-19); Aspartate Amino Transferase 25 U/L (0-32); Blood Urea Nitrogen 19 mg/dL (8-23); C Reactive Protein 16.1 mg/L (0.0-4.9); Calcium 9.3 mg/dL (8.5-10.5); Carbon Dioxide 32 mmol/L (22-29); Chloride 98 mmol/L (98-107); Glomerular Filtration Rate 61.9 mL/min (90-130); Glucose 92 mg/dL (65-115); Osmolality Calculated 294 mOsm/kg (285-295); Potassium 3.8 mmol/L (3.5-5.1); Sodium 141 mmol/L (136-145); Total Bilirubin 0.3 mg/dL (0.15-1.2); Total Protein 7.5 g/dL (6.6-8.7)
[2023-07-28 13:13] LABS: Erythrocyte Sedimentation Rate 34 mm/hr (0-15)
[2023-07-28 13:33] LABS: Add Urine Microscopic? YES; Bilirubin Urine Neg (Negative); Blood Urine 2+ (Negative); Glucose Urine UA Norm (Normal); Ketones Urine Negative (Negative); Leukocyte Esterase Urine Negative (Negative); Nitrate Urine Negative (Negative); Protein Urine Trace (Negative); Urine Appearance SL Hazy (CLEAR); Urine Color Yellow (Yellow); Urobilinogen Urine Norm (Negative); pH Urine 7 (5-7)
[2023-07-28 13:37] LABS: Bacteria Urine 3+ /hpf; RBC Urine 0-4 /hpf (0-2); Squamous Epithelial Cell Urine 0-4 /hpf (0-5)
[2023-07-28 13:39] LABS: Add Urine Culture? Yes
== END 2023-07-28 12:24 | disposition home or self-care (01) ==
PROVIDERS: PCP Family Medicine; Visit Provider Internal Medicine
DX: I27.20 Pulmonary hypertension, unspecified (principal); Z79.899 Other long term (current) drug therapy; J44.9 Chronic obstructive pulmonary disease, unspecified; F17.219 Nicotine dependence, cigarettes, with unspecified nicotine-induced disorders; I73.00 Raynaud's syndrome without gangrene; R09.02 Hypoxemia; Z99.81 Dependence on supplemental oxygen
CPT/HCPCS: 36415; 80053; 81001; 85025; 85651; 86140; 87077; 87086; 87186; 99214

== ENCOUNTER 2023-08-04 13:50 | Outpatient (CLI) | payer MEDICARE, SELFPAY | END 2023-08-04 13:51 | disposition home or self-care (01) | LOC: RT 13:51 | PROVIDERS: PCP Family Medicine; Visit Provider Internal Medicine Pulmonary Disease | DX: R09.02 Hypoxemia (principal) | CPT/HCPCS: 94618 ==

== ENCOUNTER 2023-08-13 12:50 | Outpatient (CLI) | payer MEDICARE, SELFPAY ==
--- NOTE | 2023-08-13 12:53 | XR_ITS ---
WS: [id number] DEXA (DUAL ENERGY X-RAY ABSORPTIOMETRY) Bone mineral density was performed using a [email or web address] machine. HISTORY: Osteoporosis COMPARISON: 08/12/2021 Lumbar spine BMD (L1-L4): 0.936 g/cm2 T score: -2.0 Z score: -0.2 Total hip BMD: Left: 0.672. T score: -2.6 Z score: -0.8 Right: -6.7. T score: -2.5 Z score: -0.7 10 year probability of a major osteoporotic fracture is 44% Compared to the prior study from 08/12/2021. Lumbar spine bone mineral density has increased by 8.7%. Bilateral hips bone mineral density has decreased by 2.4%. IMPRESSION: OSTEOPENIA based upon the WHO classification for females. Significant increase in bone mineral density within the lumbar spine. May be falsely elevated due to increasing sclerosis in L3 and L4. Mild decrease in bone mineral density in the hips since the prior study.
== END 2023-08-13 12:51 | disposition home or self-care (01) ==
LOC: RAD 12:50
PROVIDERS: PCP Family Medicine; Visit Provider Family Medicine
DX: M81.0 Age-related osteoporosis without current pathological fracture (principal); M85.80 Other specified disorders of bone density and structure, unspecified site
CPT/HCPCS: 77080

== ENCOUNTER → 2023-10-04 16:57 | Outpatient (BNVA) | payer MEDICARE, SELFPAY | PROVIDERS: PCP Family Medicine; Visit Provider Internal Medicine Pulmonary Disease | DX: I27.21 Secondary pulmonary arterial hypertension (principal) | CPT/HCPCS: 36415; 80076; 99214 ==

== ENCOUNTER → 2023-11-02 12:37 | Outpatient (BNVA) | payer MEDICARE, SELFPAY | PROVIDERS: PCP Family Medicine; Visit Provider Internal Medicine | DX: I73.00 Raynaud's syndrome without gangrene (principal); M41.9 Scoliosis, unspecified; K21.9 Gastro-esophageal reflux disease without esophagitis; M81.0 Age-related osteoporosis without current pathological fracture; G58.9 Mononeuropathy, unspecified; M34.1 CR(E)ST syndrome; I27.21 Secondary pulmonary arterial hypertension; J43.2 Centrilobular emphysema; R91.8 Other nonspecific abnormal finding of lung field; F17.219 Nicotine dependence, cigarettes, with unspecified nicotine-induced disorders; Z99.81 Dependence on supplemental oxygen; T50.2X5A Adverse effect of carbonic-anhydrase inhibitors, benzothiadiazides and other diuretics, initial encounter; R09.02 Hypoxemia; E87.6 Hypokalemia | CPT/HCPCS: 36415; 80053; 83735; 85025; 86140; 99214 ==

== ENCOUNTER 2023-12-27 08:48 | Outpatient (CLI) | payer MEDICARE, SELFPAY ==
--- NOTE | 2023-12-27 08:53 | CT_ITS ---
WS: [email or web address] LDCT LUNG CANCER SCREENING TECHNIQUE: Noncontrast CT of the chest with coronal and sagittal reformatted images. CLINICAL INFORMATION: HX OF TOBACCO USE COMPARISON: CT 11/25/2022 and 02/25/2023 DLP: 39.91 mGy.cm DIvol: Mean CTDIvol: 0.60 (mGy) All CT scans at [facility] use at least one of these dose optimization techniques: automat ed exposure control; mA and/or kV adjustment per patient size (includes targeted exams where dose is matched to clinical indication); or iterative reconstruction. FINDINGS: Stable 3 to 4 mm RIGHT lower lobe pulmonary nodule. Advanced chronic emphysematous changes with pleu ral-parenchymal scarring. Fibrotic opacities RIGHT upper lobe with pleural thickening and traction br onchiectasis similar to previous. No new suspicious pulmonary parenchymal opacities. Small esophageal hiatal hernia. Aortic calcificati on. Normal caliber thoracic aorta. Prominent proximal main pulmonary arteries can be seen with pulmon srinivas arterial hypertension unchanged. No axillary lymphadenopathy. Adrenal glands are normal. Thoracic kyphosis. Compression fracture L1 vertebral body appears new since 02/25/2023 with loss of approximately 75% ryanne tebral body height centrally with biconcave compression. Mild retropulsion posterior superior cortex with mild central canal stenosis. This can be further evaluated with MRI or CT. Interval mild stan khadijah of the T10 and T11 superior endplates. IMPRESSION: New L1 compression fracture described above. This could be further evaluated with MRI or CT. CT/CT lung screening [id number] LUNG-RADS: 2S-Benign Appearance or Behavior with Significant Findings FOLLOW UP: 12 Month: Continue annual screening with LDCT
== END 2023-12-27 08:49 | disposition home or self-care (01) ==
LOC: RAD 08:49
PROVIDERS: PCP Family Medicine; Visit Provider Family Medicine
DX: Z12.2 Encounter for screening for malignant neoplasm of respiratory organs (principal); Z87.891 Personal history of nicotine dependence; R91.1 Solitary pulmonary nodule; J43.9 Emphysema, unspecified; J47.9 Bronchiectasis, uncomplicated
CPT/HCPCS: 71271

== ENCOUNTER → 2024-01-06 09:36 | Outpatient (BNVA) | payer MEDICARE, SELFPAY | PROVIDERS: PCP Family Medicine; Visit Provider Internal Medicine Pulmonary Disease | DX: I27.21 Secondary pulmonary arterial hypertension (principal); R06.09 Other forms of dyspnea; J43.2 Centrilobular emphysema; F17.219 Nicotine dependence, cigarettes, with unspecified nicotine-induced disorders; I73.00 Raynaud's syndrome without gangrene; R09.02 Hypoxemia; E87.6 Hypokalemia; T50.2X5A Adverse effect of carbonic-anhydrase inhibitors, benzothiadiazides and other diuretics, initial encounter; X58.XXXA Exposure to other specified factors, initial encounter; I27.20 Pulmonary hypertension, unspecified; Z71.6 Tobacco abuse counseling | CPT/HCPCS: 36415; 80053; 99214 ==

== ENCOUNTER → 2024-01-18 11:11 | Outpatient (BNVA) | payer MEDICARE, SELFPAY | PROVIDERS: PCP Family Medicine; Referring Provider Family Medicine; Visit Provider Orthopaedic Surgery | DX: M54.50 Low back pain, unspecified (principal); S32.010A Wedge compression fracture of first lumbar vertebra, initial encounter for closed fracture; X58.XXXA Exposure to other specified factors, initial encounter; Z46.89 Encounter for fitting and adjustment of other specified devices; S32.010D Wedge compression fracture of first lumbar vertebra, subsequent encounter for fracture with routine healing; X58.XXXD Exposure to other specified factors, subsequent encounter | CPT/HCPCS: 72100; 97760; 99204; L0456 ==

== ENCOUNTER 2024-01-18 12:09 | Outpatient (CLI) | payer MEDICARE, SELFPAY | END 2024-01-18 12:10 | disposition home or self-care (01) | LOC: SPT 12:11 | PROVIDERS: PCP Family Medicine; Visit Provider Orthopaedic Surgery | DX: Z46.89 Encounter for fitting and adjustment of other specified devices (principal); S32.010D Wedge compression fracture of first lumbar vertebra, subsequent encounter for fracture with routine healing; X58.XXXD Exposure to other specified factors, subsequent encounter | CPT/HCPCS: 97760; L0456 ==

== ENCOUNTER 2024-01-21 12:59 | Outpatient (CLI) | payer MEDICARE, SELFPAY ==
--- NOTE | 2024-01-21 13:03 | MR_ITS ---
WS: [id number] MRI LUMBAR SPINE NONCONTRAST HISTORY: COLLAPSED VERTEBRA COMPARISON: MRI 08/27/2022 and recent radiographs 01/18/2024 TECHNIQUE: Sagittal and axial multisequence imaging is submitted. Focal marked kyphosis centered at the thoracolumbar junction is new since 08/27/2022. Severe vertebr al plana fracture at L1 with retropulsion by 6.8 mm. Severe L1 compression fracture is new since 08/18 but is not acute. There is a very small amount of marrow edema in the RIGHT L1 pedicle. There are also very mild concave fractures involve the superior endplates of T10 and T11. Mild compression deformities in L1 and L4 with no acute edema. Increase in the lumbar lordosis. L3 retrolisthesis by 3 mm. Disc spaces are desiccated and narrowed. Conus terminates normally at L1-2 disc level. T12-L1: Retropulsion of the L1 vertebral body and central disc protrusion contacts and deforms the ve ntral thecal sac. Moderate central and bilateral foraminal stenosis and subarticular recess stenosis. L1-L2: Mild asymmetric disc bulging with ligamentum flavum and facet arthritis. No high-grade stenosi s. L2-L3: Mild asymmetric disc bulging. No stenosis. L3-L4: Mild retrolisthesis of L3 with osteophytosis. Mild annular disc bulging with osteophytic ridgi ng and facet disease. Mild central, bilateral subarticular recess and moderate foraminal stenosis. L4-L5: Mild annular disc bulging and facet disease. L5-S1: Mild annular disc bulging with bilateral facet arthritis. Ectatic abdominal aorta. IMPRESSION: 1. Marked increase in focal kyphosis centered at the thoracolumbar junction due to compression fract ures. 2. Severe L1 vertebra plana fracture. New fracture since 08/27/2020 but there is no marrow edema at this time within the vertebral body. There is a very small amount of marrow edema in the RIGHT L1 ped icle which may represent an acute marrow injury. 3. T12-L1: Retropulsion of the L1 vertebral body and a central disc protrusion resulting in moderate central, bilateral foraminal and subarticular recess stenosis. 4. L1 retrolisthesis by 6.8 mm. 5. L3-4: Mild central, bilateral subarticular recess and foraminal stenosis. 6. Marked increase in the lumbar lordosis.
== END 2024-01-21 13:00 | disposition home or self-care (01) ==
LOC: RAD 13:00
PROVIDERS: PCP Family Medicine; Visit Provider Family Medicine
DX: M48.55XA Collapsed vertebra, not elsewhere classified, thoracolumbar region, initial encounter for fracture (principal); S32.019A Unspecified fracture of first lumbar vertebra, initial encounter for closed fracture; M48.061 Spinal stenosis, lumbar region without neurogenic claudication; M51.25 Other intervertebral disc displacement, thoracolumbar region; X58.XXXA Exposure to other specified factors, initial encounter
CPT/HCPCS: 72148

== ENCOUNTER → 2024-01-25 15:02 | Outpatient (BNVA) | payer MEDICARE, SELFPAY | PROVIDERS: PCP Family Medicine; Visit Provider Orthopaedic Surgery | DX: Z09 Encounter for follow-up examination after completed treatment for conditions other than malignant neoplasm (principal); S32.010A Wedge compression fracture of first lumbar vertebra, initial encounter for closed fracture; X58.XXXA Exposure to other specified factors, initial encounter | CPT/HCPCS: 99214 ==

== ENCOUNTER 2024-02-01 11:50 | Outpatient (CLI) | payer MEDICARE, SELFPAY | END 2024-02-01 11:51 | disposition home or self-care (01) | LOC: RAD 11:50 | PROVIDERS: PCP Family Medicine; Visit Provider Internal Medicine Pulmonary Disease | DX: I27.20 Pulmonary hypertension, unspecified (principal) | CPT/HCPCS: 93306 ==

== ENCOUNTER 2024-02-15 09:53 | Outpatient (CLI) | payer MEDICARE, SELFPAY ==
[2024-02-15 10:25] LABS: Basophils % 0.4 %; Eosinophils # 0.1 10^3/uL (0.0-0.8); Eosinophils % 0.7 %; Hematocrit 36.1 % (36-47); Lymphocytes # 1.3 10^3/uL (0.8-4.8); Lymphocytes % 15.2 %; Mean Corpuscular HGB Conc 31.6 g/dL (30-55); Mean Corpuscular Hemoglobin 31.3 pg (27-33); Mean Corpuscular Volume 99.2 fl (85-98); Mean Platelet Volume 9.6 fL (7.4-10.4); Monocytes # 0.5 10^3/uL (0.2-0.9); Monocytes % 6.1 %; Neutrophils % 77.2 %; Nucleated Red Blood Cells % 0 %; Platelet Count 200 10^3/cmm (157-399); Red Blood Count 3.64 10^6/uL (3.85-5.65); Red Cell Distribution Width 17.5 % (12.1-15.1); White Blood Count 8.41 10^3/uL (3.29-11.43)
[2024-02-15 10:47] LABS: Alanine Aminotransferase 8 U/L (0-33); Alkaline Phosphatase 54 U/L (35-105); Aspartate Amino Transferase 17 U/L (0-32); C Reactive Protein 29.6 mg/L (0.0-4.9); Globulin 2.7 g/dL (1.3-4.6); Total Bilirubin 0.2 mg/dL (0.15-1.2); Total Protein 6.7 g/dL (6.6-8.7)
== END 2024-02-15 09:54 | disposition home or self-care (01) ==
LOC: LAB 09:55
PROVIDERS: Internal Medicine Rheumatology; PCP Family Medicine; Visit Provider Family Medicine
DX: I73.00 Raynaud's syndrome without gangrene (principal); Z79.899 Other long term (current) drug therapy; M41.9 Scoliosis, unspecified; K21.9 Gastro-esophageal reflux disease without esophagitis; M81.0 Age-related osteoporosis without current pathological fracture; M34.1 CR(E)ST syndrome; I27.21 Secondary pulmonary arterial hypertension
CPT/HCPCS: 36415; 80076; 82565; 85025; 86140; 99214

== ENCOUNTER → 2024-02-23 13:35 | Outpatient (BNVA) | payer MEDICARE, SELFPAY | PROVIDERS: PCP Family Medicine; Visit Provider Internal Medicine Pulmonary Disease | DX: R06.09 Other forms of dyspnea (principal); E87.6 Hypokalemia; T50.2X5A Adverse effect of carbonic-anhydrase inhibitors, benzothiadiazides and other diuretics, initial encounter; F17.219 Nicotine dependence, cigarettes, with unspecified nicotine-induced disorders; I73.00 Raynaud's syndrome without gangrene; R09.02 Hypoxemia; I27.21 Secondary pulmonary arterial hypertension; Y99.9 Unspecified external cause status | CPT/HCPCS: 36415; 80048; 99214 ==

== ENCOUNTER → 2024-06-08 15:00 | Outpatient (BNVA) | payer MEDICARE, SELFPAY | PROVIDERS: PCP Family Medicine; Visit Provider Internal Medicine Cardiovascular Disease | DX: I27.20 Pulmonary hypertension, unspecified (principal); I50.810 Right heart failure, unspecified; I51.9 Heart disease, unspecified; F17.219 Nicotine dependence, cigarettes, with unspecified nicotine-induced disorders; I73.00 Raynaud's syndrome without gangrene; R06.09 Other forms of dyspnea | CPT/HCPCS: 99214 ==

== ENCOUNTER 2024-07-04 10:49 | Outpatient (CLI) | payer MEDICARE, SELFPAY ==
--- NOTE | 2024-07-04 | MM_ITS ---
WS: [email or web address] BILATERAL 3D TOMOSYNTHESIS DIGITAL SCREENING MAMMOGRAPHY WITH CAD CLINICAL INFORMATION: SCREENING HISTORY: Screening mammogram. No current complaints. COMPARISON: 2021 TECHNIQUE: Bilateral CC and MLO views. FINDINGS: The breasts are composed of heterogeneous fibroglandular density tissue, which can limit the detectio n of small underlying mass lesions. No suspicious mass, asymmetry, calcifications, or architectural d istortion. No evidence of malignancy. Vascular calcification. MM/MM [facility] tomosynthesis [id number] IMPRESSION: DENSITY: The breasts are heterogeneously dense, which may obscure small masses. BI-RADS: 2 - Benign FOLLOW UP: 1 Year Follow-up Recommend return to annual screening mammography.
== END 2024-07-04 10:50 | disposition home or self-care (01) ==
LOC: RAD 10:50
PROVIDERS: PCP Family Medicine; Visit Provider Family Medicine
DX: Z12.31 Encounter for screening mammogram for malignant neoplasm of breast (principal)
CPT/HCPCS: 77063; 77067

== ENCOUNTER 2024-07-05 06:57 | Outpatient (CLI) | payer MEDICARE, SELFPAY ==
--- NOTE | 2024-07-05 07:05 | MR_ITS ---
WS: [email or web address] MRI LUMBAR SPINE NONCONTRAST TECHNIQUE: Sagittal T1, T2 and STIR imaging. Axial T1 and T2 imaging. CLINICAL INFORMATION: SPONDYLOSIS WITHOUTMYELOPATHY OR RADICULOPATHY, LUMBOSACRAL COMPARISON: MRI 01/21/2024 FINDINGS: Focal kyphosis at the thoracolumbar junction. Vertebral plana L1 is unchanged. Moderate central canal stenosis due to L1 retropulsion with T12-L1 disc osteophyte protrusion. Chronic compression inferior endplate L3 is unchanged. Mild biconcave compression at L4 is unchanged. T12-L1: Central disc osteophyte protrusion with chronic retropulsion is unchanged with moderate centr al canal stenosis. Mild facet arthropathy. Mild LEFT foraminal narrowing. L1-L2: Mild disc bulging. L1 vertebral plana. Mild retropulsion is unchanged. Spinal canal and forame n are patent. Mild facet arthropathy. L2-L3: Mild facet arthropathy. Spinal canal and foramina are patent. L3-L4: Chronic compression inferior endplate L3 is unchanged. Mild disc osteophyte complex with sligh t impingement LEFT subarticular recess and traversing LEFT L4 nerve root. Mild facet arthropathy. Mil d LEFT greater than RIGHT foraminal narrowing. L4-L5: Mild annular bulging. Mild facet arthropathy. Mild LEFT foraminal narrowing. L5-S1: Grade 1 anterolisthesis with chronic spondylolysis. Spinal canal and foramen are patent. Mild facet arthropathy. Visualized pelvic bony structures: Normal. Paravertebral soft tissues: Normal. MR/MR lumbar spine wo con* [id number] IMPRESSION: 1. No new compression fractures. 2. Stable L1 compression fracture. 3. Stable moderate central canal stenosis T12-L1. 4. Stable kyphosis at the thoracolumbar junction. 5. Stable grade 1 anterolisthesis L5 on S1 with chronic spondylolysis 6. Disc bulging L3-4 with slight impingement of the LEFT subarticular recess a nd traversing LEFT L4 nerve root. Mild LEFT L3-L4 foraminal narrowing. 7. Overall no significant interval changes.
== END 2024-07-05 06:58 | disposition home or self-care (01) ==
LOC: RAD 06:58
PROVIDERS: PCP Family Medicine; Visit Provider General Practice
DX: M47.817 Spondylosis without myelopathy or radiculopathy, lumbosacral region (principal); M40.204 Unspecified kyphosis, thoracic region; M48.061 Spinal stenosis, lumbar region without neurogenic claudication; M25.78 Osteophyte, vertebrae; S32.030A Wedge compression fracture of third lumbar vertebra, initial encounter for closed fracture; M43.16 Spondylolisthesis, lumbar region; M51.36 Other intervertebral disc degeneration, lumbar region
CPT/HCPCS: 72148

== ENCOUNTER → 2024-08-15 09:06 | Outpatient (BNVA) | payer MEDICARE, SELFPAY | PROVIDERS: PCP Family Medicine; Visit Provider Internal Medicine Rheumatology | DX: Z79.899 Other long term (current) drug therapy (principal); I73.00 Raynaud's syndrome without gangrene; M41.9 Scoliosis, unspecified; K21.9 Gastro-esophageal reflux disease without esophagitis; M81.0 Age-related osteoporosis without current pathological fracture; M34.1 CR(E)ST syndrome; I27.21 Secondary pulmonary arterial hypertension | CPT/HCPCS: 80076; 82565; 85025; 85651; 86140; 99214 ==

== ENCOUNTER → 2025-02-13 09:17 | Outpatient (BNVA) | payer MEDICARE, SELFPAY | PROVIDERS: PCP Family Medicine; Visit Provider Internal Medicine Rheumatology | DX: I73.00 Raynaud's syndrome without gangrene (principal); M41.9 Scoliosis, unspecified; K21.9 Gastro-esophageal reflux disease without esophagitis; M34.1 CR(E)ST syndrome; M81.0 Age-related osteoporosis without current pathological fracture; I27.21 Secondary pulmonary arterial hypertension; Z79.899 Other long term (current) drug therapy | CPT/HCPCS: 80076; 82306; 82565; 85025; 85651; 86140; 99214 ==

== ENCOUNTER 2025-05-01 15:20 | Outpatient (CLI) | payer MEDICARE, SELFPAY ==
--- NOTE | 2025-05-01 15:25 | CT_ITS ---
WS: [email or web address] LDCT LUNG CANCER SCREENING TECHNIQUE: Noncontrast CT of the chest with coronal and sagittal reformatted images. CLINICAL INFORMATION: HX OF TOBACCO USE COMPARISON: 12/27/2023 DLP: 36.40 mGy.cm DIvol: Mean CTDIvol: 0.70 (mGy) All CT scans at [facility] use at least one of these dose optimization techniques: automated exposure control; mA and/or kV adjustment per patient size (includes targeted exams where dose is matched to clinical indication); or iterative reconstruction. FINDINGS: Stable 4 mm RIGHT lower lobe pulmonary nodule. Advanced chronic emphysematous changes with pleural-parenchymal scarring. Fibrotic opacities RIGHT upper lobe with pleural thickening and traction bronchiectasis similar to previous. No new suspicious pulmonary parenchymal opacities. Small esophageal hiatal hernia. Aortic calcification. Normal caliber thoracic aorta. Prominent proximal main pulmonary arteries can be seen with pulmonary arterial hypertension unchanged. No axillary lymphadenopathy. Adrenal glands are normal. Thoracic kyphosis and scoliosis. Stable severe L1 compression fracture with mild central canal stenosis. Mild compression supreme plate of T10 and T11 similar to previous. Osteopenia. Partially visualized dilated upper abdominal aorta measuring 2.6 x 2.6 cm AP by transverse. This can be further evaluated with CTA abdomen pelvis CT/CT lung screening [id number] IMPRESSION: Partially visualized dilated upper abdominal aorta measuring 2.6 x 2.6 cm AP by transverse. This can be further evaluated with CTA abdomen pelvis LUNG-RADS: 2S-Benign Appearance or Behavior with Significant Findings FOLLOW UP: 12 Month: Continue annual screening with LDCT
== END 2025-05-01 15:21 | disposition home or self-care (01) ==
LOC: RAD 15:22
PROVIDERS: PCP Family Medicine; Visit Provider Family Medicine
DX: Z12.2 Encounter for screening for malignant neoplasm of respiratory organs (principal); R91.1 Solitary pulmonary nodule; Z87.891 Personal history of nicotine dependence
CPT/HCPCS: 71271

== ENCOUNTER 2025-05-15 11:40 | Outpatient (CLI) | payer MEDICARE, SELFPAY ==
--- NOTE | 2025-05-15 12:00 | CT_ITS ---
WS: [id number] CT ABDOMEN AND PELVIS NONCONTRAST HISTORY: ABDOMINAL AORTIC ANEURYSM, WITHOUT RUPTURE, UNSPECIFIED TECHNIQUE: Imaging performed through the abdomen and pelvis. Coronal and sagittal reformats are submitted. All CT scans at [facility] use at least one of these dose optimization techniques: automated exposure control; mA and/or kV adjustment per patient size (includes targeted exams where dose is matched to clinical indication); or iterative reconstruction. DLP: 219.70 mGy.cm COMPARISON: CT 05/01/2025 and 08/08/2010 Lower thorax: Chronic severe emphysema at the lung bases. Small hiatal hernia. Normal size heart. Tortuous atherosclerotic abdominal aorta beginning at the level of the diaphragmatic hiatus. There is significant wall calcifications. Contiguous calcification in several areas. Calcification continues into the iliac arteries. Maximum diameter is 2.9 cm just above the bifurcation. Normal caliber common iliac arteries. Small amount of calcification at the origin of the mesenteric arteries. Calcification of the the origin of the renal arteries. Liver: Normal size liver. No mass or bile duct dilatation. Gallbladder: Normal gallbladder. No pericholecystic fluid or cholelithiasis. No gallbladder wall thickening. Pancreas: Poorly visualized. No abnormality. Spleen: Normal. Adrenal glands: Normal. No mass. Right kidney: Mild atrophy. No obstruction. Left kidney: Mild atrophy. No obstruction. No free fluid, intraperitoneal air or significant lymphadenopathy. GI tract: No GI tract obstruction. No colitis. Nondistended stomach. Diffuse constipation. Prior appendectomy. Abdominal wall: Negative. No hernia. Pelvis: No free fluid. Prior hysterectomy. Osseous structures: Marked scoliosis lumbar spine. Increase in lordosis. Severe L1 compression fracture with retropulsion by 5 mm. Prior fractures at L3 and L4. These fractures were described on a prior MRI of 07/05/2024. CT/CT abdomen pelvis wo con [id number] IMPRESSION: 1. Ectatic atherosclerotic abdominal aorta with minimal aneurysmal dilatation to 2.9 cm. 2. Extensive calcification in the aorta and the mesenteric arteries. No ischem ic changes identified. 3. No free fluid or adenopathy. 4. Prior hysterectomy and appendectomy. 5. Lumbar spine fractures stable since the prior MRI from 07/05/2024. Advanced lumbar rotary scoliosis.
[2025-05-15 12:31] LABS: Hematocrit 35.3 % (36-47); Hemoglobin 11.40 g/dL (11.27-16.99); Mean Corpuscular HGB Conc 32.3 g/dL (30-55); Mean Corpuscular Hemoglobin 32.8 pg (27-33); Mean Corpuscular Volume 101.4 fl (85-98); Nucleated Red Blood Cells % 0 %; Platelet Count 168 10^3/cmm (157-399); Red Blood Count 3.48 10^6/uL (3.85-5.65); White Blood Count 6.89 10^3/uL (3.29-11.43)
[2025-05-15 12:54] LABS: Alanine Aminotransferase 11 U/L (0-33); Albumin Level 3.9 g/dL (3.5-5.2); Alkaline Phosphatase 56 U/L (35-105); Aspartate Amino Transferase 18 U/L (0-32); Globulin 3.0 g/dL (1.3-4.6); Total Protein 6.9 g/dL (6.6-8.7)
== END 2025-05-15 11:41 | disposition home or self-care (01) ==
PROVIDERS: Internal Medicine Rheumatology; PCP Family Medicine; Visit Provider Family Medicine
DX: Z79.899 Other long term (current) drug therapy (principal); I77.811 Abdominal aortic ectasia; I70.0 Atherosclerosis of aorta; K55.1 Chronic vascular disorders of intestine; Z90.710 Acquired absence of both cervix and uterus; Z90.49 Acquired absence of other specified parts of digestive tract; S32.010S Wedge compression fracture of first lumbar vertebra, sequela; S32.039S Unspecified fracture of third lumbar vertebra, sequela; S32.049S Unspecified fracture of fourth lumbar vertebra, sequela; X58.XXXS Exposure to other specified factors, sequela; M41.86 Other forms of scoliosis, lumbar region
CPT/HCPCS: 36415; 74176; 80076; 82565; 85025; 85651; 86140

== ENCOUNTER → 2025-07-02 12:54 | Outpatient (BNVA) | payer MEDICARE, SELFPAY | PROVIDERS: PCP Family Medicine; Visit Provider Internal Medicine | DX: J44.9 Chronic obstructive pulmonary disease, unspecified (principal); Z99.81 Dependence on supplemental oxygen; I27.21 Secondary pulmonary arterial hypertension; I73.00 Raynaud's syndrome without gangrene; R91.1 Solitary pulmonary nodule; F17.219 Nicotine dependence, cigarettes, with unspecified nicotine-induced disorders; Z71.6 Tobacco abuse counseling; R06.09 Other forms of dyspnea; R09.02 Hypoxemia | CPT/HCPCS: 99215 ==

== ENCOUNTER → 2025-07-23 14:01 | Outpatient (BNVA) | payer MEDICARE, SELFPAY | PROVIDERS: PCP Family Medicine; Visit Provider Dermatology | DX: C44.329 Squamous cell carcinoma of skin of other parts of face (principal) | CPT/HCPCS: 12052; 17311 ==

== ENCOUNTER → 2025-08-03 10:17 | Outpatient (BNVA) | payer MEDICARE, SELFPAY | PROVIDERS: PCP Family Medicine; Visit Provider Dermatology | DX: L82.1 Other seborrheic keratosis (principal) | CPT/HCPCS: 99212 ==

== ENCOUNTER 2025-08-27 09:43 | Outpatient (CLI) | payer MEDICARE, SELFPAY ==
--- NOTE | 2025-08-27 09:49 | MM_ITS ---
WS: [id number] BILATERAL SCREENING DIGITAL TOMOSYNTHESIS MAMMOGRAM WITH CAD HISTORY: SCREENING COMPARISON: 07/04/2024, 09/29/2022 Bilateral CC and MLO views with tomosynthesis and synthetic mammography submitted. Computer aided detection analyzed. Quality of this examination is compromised by positioning and poor compression. Breast composition: The breasts are heterogeneously dense, which may obscure small masses. No suspicious masses, microcalcifications or architectural distortion. MM/MM scr tomosynthesis [id number] IMPRESSION: BI-RADS: 2 - Benign FOLLOW UP: 1 Year Follow-up
== END 2025-08-27 09:44 | disposition home or self-care (01) ==
LOC: RAD 09:45
PROVIDERS: PCP Family Medicine; Visit Provider Family Medicine
DX: Z12.31 Encounter for screening mammogram for malignant neoplasm of breast (principal); R92.323 Mammographic fibroglandular density, bilateral breasts
CPT/HCPCS: 77063; 77067

== ENCOUNTER 2025-09-11 10:00 | Outpatient (CLI) | payer MEDICARE, SELFPAY | END 2025-09-11 10:01 | disposition home or self-care (01) | LOC: RT 10:03 | PROVIDERS: PCP Family Medicine; Visit Provider Internal Medicine | DX: J44.9 Chronic obstructive pulmonary disease, unspecified (principal) | CPT/HCPCS: 94010; 94729 ==

== ENCOUNTER 2025-09-18 11:52 | Outpatient (CLI) | payer MEDICARE, SELFPAY | END 2025-09-18 11:53 | disposition home or self-care (01) | LOC: LAB 11:53 | PROVIDERS: PCP Family Medicine; Visit Provider Internal Medicine Rheumatology | DX: I73.00 Raynaud's syndrome without gangrene (principal); M41.9 Scoliosis, unspecified; K21.9 Gastro-esophageal reflux disease without esophagitis; M81.0 Age-related osteoporosis without current pathological fracture; M34.1 CR(E)ST syndrome; I27.21 Secondary pulmonary arterial hypertension; Z79.899 Other long term (current) drug therapy | CPT/HCPCS: 80076; 82565; 85025; 85651; 86140; 99214 ==